=== PATIENT | male | born 1930 | race Caucasian/White ===

== ENCOUNTER → 2017-10-09 | Outpatient (CLI) | payer MEDICARE, BC ==
[2016-08-19 07:00] VITALS: BP 118/62
[~2017-10-09] MED LIST: FURO40TA4 PO; IBRU140C PO; POTA20TA4 PO; TRIA15CR3 TOP
--- NOTE | 2017-10-09 16:17 | RAD ---
Left lower extremity venous duplex ultrasound 10/09/2017 Indication: Left lower extremity edema Comparison study: None Discussion: Sonographic evaluation of the deep veins of the left lower extremity was performed. This includes grayscale imaging and color duplex imaging with spectral analysis. No evidence of deep venous thrombosis is seen. Interrogated veins are compressible and demonstrate augmentable blood flow and color Doppler imaging. Impression: No evidence of deep venous thrombosis involving the left lower extremity
== END | disposition home or self-care (01) ==
LOC: US 14:15
PROVIDERS: ATTEND Internal Medicine Hematology & Oncology
DX: R60.0 Localized edema (principal); C91.10 Chronic lymphocytic leukemia of B-cell type not having achieved remission
CPT/HCPCS: 93971

== ENCOUNTER 2017-11-21 11:12 | Emergency (ER) | payer MEDICARE, BC | END 2017-11-21 12:05 | disposition home or self-care (01) | LOC: ER 11:12 | DX: I80.02 Phlebitis and thrombophlebitis of superficial vessels of left lower extremity (principal); Z90.49 Acquired absence of other specified parts of digestive tract; Z98.890 Other specified postprocedural states | CPT/HCPCS: 99282 ==

== ENCOUNTER → 2018-12-28 | Outpatient (CLI) | payer MEDICARE, BC ==
[2017-11-21 11:20] VITALS: BP 128/60
[~2018-12-28] MED LIST changes: +MULT1TAB13 PO; +SENN-37 PO
--- NOTE | 2018-12-28 16:11 | RAD ---
Left lower extremity venous Doppler dated 12/28/2018. No comparison available. Clinical data indication: Left leg swelling and discomfort. FINDINGS: Grayscale, color-flow and spectral waveform analysis performed to include the deep venous system of the left lower extremity. Normal compressibility, phasicity and augmentation of flow throughout. No filling defects are seen. IMPRESSION: No evidence of left lower extremity deep vein thrombosis. Electronically signed by: Rick Boykin MD (12/28/2018 4:06 PM) [facility]
== END | disposition home or self-care (01) ==
LOC: US 15:08
PROVIDERS: ATTEND Internal Medicine Hematology & Oncology
DX: C91.90 Lymphoid leukemia, unspecified not having achieved remission (principal); M79.605 Pain in left leg; M79.89 Other specified soft tissue disorders
CPT/HCPCS: 93971

== ENCOUNTER → 2019-01-02 | Outpatient (CLI) | payer MEDICARE, BC ==
[2017-11-21 11:20] VITALS: BP 128/60
[~2019-01-02] MED LIST changes: -MULT1TAB13 PO; -SENN-37 PO
--- NOTE | 2019-01-02 12:20 | RAD ---
EXAM: Left lower extremity venous Doppler sonogram. HISTORY: Pain and swelling. TECHNIQUE: Piper scale and color Doppler sonographic evaluation of the left lower extremity veins with spectral waveform analysis was performed. FINDINGS: There is normal color flow, normal compressibility and there are normal spectral waveforms in the common femoral, superficial femoral, popliteal, posterior tibial and greater saphenous veins. IMPRESSION: No Doppler evidence of lower extremity deep venous thrombosis. Electronically signed by: Shahrzad Wilkes MD (01/02/2019 12:15 PM) [place] [id number]
== END | disposition home or self-care (01) ==
LOC: US 11:44
PROVIDERS: ATTEND Family Medicine
DX: C91.10 Chronic lymphocytic leukemia of B-cell type not having achieved remission (principal); M79.89 Other specified soft tissue disorders; Z86.718 Personal history of other venous thrombosis and embolism
CPT/HCPCS: 93971

== ENCOUNTER → 2019-01-23 | Outpatient (CLI) | payer MEDICARE, BC ==
[2019-01-17 15:51] VITALS: BP 108/39
[~2019-01-23] MED LIST changes: +MULT1TAB13 PO; +SENN-37 PO
== END | disposition home or self-care (01) ==
LOC: PMGWOUND 09:05
PROVIDERS: ATTEND Preventive Medicine Undersea and Hyperbaric Medicine
DX: L97.221 Non-pressure chronic ulcer of left calf limited to breakdown of skin (principal); I87.2 Venous insufficiency (chronic) (peripheral); I89.0 Lymphedema, not elsewhere classified; M19.90 Unspecified osteoarthritis, unspecified site; H91.90 Unspecified hearing loss, unspecified ear; Z90.49 Acquired absence of other specified parts of digestive tract; Z86.718 Personal history of other venous thrombosis and embolism
CPT/HCPCS: 99214; G0463

== ENCOUNTER → 2019-02-06 | Outpatient (CLI) | payer MEDICARE, BC ==
[2019-01-17 15:51] VITALS: BP 108/39
== END | disposition home or self-care (01) ==
LOC: PMGWOUND 09:59
PROVIDERS: ATTEND Preventive Medicine Undersea and Hyperbaric Medicine
DX: L97.821 Non-pressure chronic ulcer of other part of left lower leg limited to breakdown of skin (principal); I87.2 Venous insufficiency (chronic) (peripheral); M19.90 Unspecified osteoarthritis, unspecified site; I89.0 Lymphedema, not elsewhere classified; H91.90 Unspecified hearing loss, unspecified ear; Z86.718 Personal history of other venous thrombosis and embolism; Z90.49 Acquired absence of other specified parts of digestive tract
CPT/HCPCS: 99213; G0463

== ENCOUNTER → 2019-02-06 | Outpatient (CLI) | payer MEDICARE, BC ==
[2019-01-17 15:51] VITALS: BP 108/39
--- NOTE | 2019-02-13 12:13 | RAD ---
Indication: Mid santos nonhealing wound. TECHNIQUE: Duplex evaluation of the saphenous vein in the left lower extremity with grayscale, color Doppler and spectral waveform analysis. COMPARISON: None FINDINGS: The diameter of the proximal saphenous vein at the saphenofemoral junction measures 1.12 cm with reflux of 1.1 seconds. The diameter of the mid great saphenous vein measures 5 mm with reflux of 2.5 seconds. The diameter of the distal great saphenous vein measures 5.4 mm with reflux of 1.6 seconds. The diameter of the great saphenous vein in the upper calf measures 4.2 mm with reflux of 2.1 seconds. The diameter of the great saphenous vein in the mid calf measures 4.6 mm with reflux of 2.2 seconds. The diameter of the great saphenous vein in the distal calf measures 5.1 mm with reflux of 2.1 seconds. Calf senior health physics technician is seen approximately 30 cm from the ankle with reflux of 1.9 seconds and diameter of 4.8 mm. IMPRESSION: 1. Left leg great saphenous vein reflux from groin to ankle with insufficiency greater than one second. 2. One incompetent senior health physics technician draining to the wound and is in the anterior border of the wound. Electronically signed by: Live Tolbert DO (02/13/2019 12:10 PM) [facility]
== END | disposition home or self-care (01) ==
LOC: US 14:41
PROVIDERS: ATTEND Preventive Medicine Undersea and Hyperbaric Medicine
DX: L97.221 Non-pressure chronic ulcer of left calf limited to breakdown of skin (principal)
CPT/HCPCS: 93971

== ENCOUNTER → 2019-02-13 | Outpatient (CLI) | payer MEDICARE, BC ==
[2019-01-17 15:51] VITALS: BP 108/39
== END | disposition home or self-care (01) ==
LOC: PMGWOUND 09:59
PROVIDERS: ATTEND Preventive Medicine Undersea and Hyperbaric Medicine
DX: L97.821 Non-pressure chronic ulcer of other part of left lower leg limited to breakdown of skin (principal); I87.2 Venous insufficiency (chronic) (peripheral); M19.90 Unspecified osteoarthritis, unspecified site; I89.0 Lymphedema, not elsewhere classified; H91.90 Unspecified hearing loss, unspecified ear; Z86.718 Personal history of other venous thrombosis and embolism; Z90.49 Acquired absence of other specified parts of digestive tract
CPT/HCPCS: 97597; 97598

== ENCOUNTER → 2019-02-20 | Outpatient (CLI) | payer MEDICARE, BC ==
[2019-01-17 15:51] VITALS: BP 108/39
== END | disposition home or self-care (01) ==
LOC: PMGWOUND 10:52
PROVIDERS: ATTEND Preventive Medicine Undersea and Hyperbaric Medicine
DX: L97.821 Non-pressure chronic ulcer of other part of left lower leg limited to breakdown of skin (principal); I87.2 Venous insufficiency (chronic) (peripheral); I89.0 Lymphedema, not elsewhere classified; M19.90 Unspecified osteoarthritis, unspecified site; H91.90 Unspecified hearing loss, unspecified ear; Z90.49 Acquired absence of other specified parts of digestive tract; Z86.718 Personal history of other venous thrombosis and embolism
CPT/HCPCS: 97597; 97598

== ENCOUNTER 2019-03-11 08:29 | Outpatient (CLI) | payer MEDICARE, BC ==
[2019-03-11] VITALS (10 sets, daily range): BP systolic 118–153; BP diastolic 60–73
[~2019-03-11] VITALS: Ht 195.6 cm; Wt 86.2 kg
[~2019-03-11 08:29] MED LIST changes: -MULT1TAB13 PO; -SENN-37 PO
[2019-03-11] MEDS ORDERED: SENN-37 PO (08:45)
[2019-03-11] MEDS ORDERED: MULT1TAB13 PO (08:45)
[2019-03-11 09:04] LABS: CALCIUM 9.2 mg/dL (8.5-10.1); GFR 70.8; POTASSIUM 4.1 mmol/L (3.5-5.1)
[2019-03-11 09:07] LABS: BASO % 1 % (0-3); EOS # 0.4 x10^3/uL (0.0-0.7); EOS % 4 % (0-3); HEMATOCRIT 43.3 % (39.0-53.0); HEMOGLOBIN 14.5 g/dL (13.0-17.5); LYMPH # 5.8 x10^3/uL (1.0-4.8); LYMPH % 62 % (24-48); MEAN CORPUSCULAR HEMOGLOBIN 31 pg (25-35); MEAN CORPUSCULAR HGB CONC 33 g/dL (31-37); MEAN CORPUSCULAR VOLUME 92 fL (79-100); MONO # 0.6 x10^3/uL (0.0-1.1); MONO % 6 % (0-9); NEUT # 2.5 x10^3uL (1.8-7.7); NEUT % 27 % (31-73); PLATELET COUNT 151 x10^3/uL (140-400); RED CELL DISTRIBUTION WIDTH 13.8 % (11.5-14.5); WHITE BLOOD COUNT 9.3 x10^3/uL (4.0-11.0)
[2019-03-11 09:09] LABS: PROTHROMBIN TIME PATIENT 12.3 SEC (11.7-14.0)
[2019-03-11] MEDS ORDERED: HEPARIN for ARTERIAL LINE 1,500 ML ONE (09:10)
[2019-03-11] MEDS ORDERED: LIDOCAINE WITH 8.4% SOD BICARB 3 ML DISP.SYRIN. ONE (09:10)
[2019-03-11] MEDS ORDERED: IODIXANOL 320 MG/ML 100 ML VIAL. ONE (09:10)
[2019-03-11] MEDS ORDERED: IODIXANOL 320 MG/ML 50ML VIAL. ONE (09:10)
[2019-03-11] MEDS ORDERED: fentaNYL PF VIAL 100 MCG/2 ML VIAL ONE (09:52)
[2019-03-11] MEDS ORDERED: HEPARIN for IV BOLUS 10,000 UNIT/10 ML VIAL. ONE (09:52)
[2019-03-11] MEDS ORDERED: MIDAZOLAM HCL/PF 2 MG/2 ML VIAL. ONE (09:52)
[2019-03-11] MEDS ORDERED: MIDAZOLAM HCL/PF 2 MG/2 ML VIAL. IV ONE (10:00)
[2019-03-11] MEDS ORDERED: IODIXANOL 320 MG/ML 50ML VIAL. IART ONE (10:00)
[2019-03-11] MEDS ORDERED: LIDOCAINE WITH 8.4% SOD BICARB 3 ML DISP.SYRIN. IJ ONE (10:00)
[2019-03-11] MEDS ORDERED: fentaNYL PF VIAL 100 MCG/2 ML VIAL IV ONE (10:00)
[2019-03-11] MEDS ORDERED: IODIXANOL 320 MG/ML 100 ML VIAL. IART ONE (10:00)
--- NOTE | 2019-03-11 12:14 | RAD ---
03/11/2019 1. Pelvic angiography 2. Left lower extremity angiography Indication: 88-year-old male with chronic left lower extremity wounds and edema. Probable component of venous stasis disease. Ultrasound demonstrates distal arterial disease, raising concern for a component of arterial insufficiency. Discussion: The risks and benefits of the procedure were discussed the patient and his family. Informed consent was obtained. A timeout procedure was performed. The right groin was prepped and draped using maximum sterile barrier technique. 1% lidocaine was administered for local anesthesia. The right common femoral artery was evaluated with ultrasound found to be patent. Using a combination of direct ultrasound guidance and fluoroscopic landmarks right common femoral artery was accessed using micropuncture technique. A 5 Japanese vascular sheath was placed. An Omni flush catheter and SpotterRF wire were advanced into the inferior abdominal aorta. Pelvic angiograms were obtained. No hemodynamically significant aortoiliac stenosis was identified. The catheter was then manipulated into the common femoral artery left lower extremity angiograms were performed. No significant femoral popliteal stenosis is identified. Mild irregularity is seen in the anterior tibial artery. The anterior tibial artery and dorsalis pedis artery are otherwise appear to be patent. Peroneal posterior tibial arteries are patent. Lateral plantar artery is patent. The catheter and sheath were removed. A minx device was used to achieve hemostasis at the right common femoral puncture site. Manual pressure was held. Sterile dressings were applied. The procedures performed under conscious sedation including continuous cardiopulmonary monitoring via a dedicated sedation nurse. [id number] sedation time: 45 minutes. 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
--- NOTE | 2019-03-11 14:40 | NUR ---
Pt VSS. Right groin site dressing c/d/i; site soft without oozing, bruising, or swelling. Pt denies any pain or sob. Bilateral pedal and post. tibial pulses remain the same, as prior to the procedure. Left FA iv dc'd with no complications, tip intact. Discharge instructions given to patient, , and daughter. Pt taken to outpatient entrance via wheelchair.
== END 2019-03-11 14:40 | disposition home or self-care (01) ==
LOC: INTRAD 08:29
PROVIDERS: ATTEND Preventive Medicine Undersea and Hyperbaric Medicine
DX: I70.292 Other atherosclerosis of native arteries of extremities, left leg (principal); Z88.1 Allergy status to other antibiotic agents; Z88.8 Allergy status to other drugs, medicaments and biological substances
CPT/HCPCS: 36246; 36415; 75625; 75710; 76937; 80048; 85025; 85610; 99152; 99153; C1760; C1769; C1892; C1894; J1644; J2250; J3010; Q9967; 36247; G0269

== ENCOUNTER → 2019-03-13 | Outpatient (CLI) | payer MEDICARE, BC ==
[~2019-03-13] MED LIST changes: +MULT1TAB13 PO; +SENN-37 PO
== END | disposition home or self-care (01) ==
LOC: PMGWOUND 09:30
PROVIDERS: ATTEND Preventive Medicine Undersea and Hyperbaric Medicine
DX: L97.821 Non-pressure chronic ulcer of other part of left lower leg limited to breakdown of skin (principal); I87.2 Venous insufficiency (chronic) (peripheral); L03.116 Cellulitis of left lower limb; I10 Essential (primary) hypertension; I89.0 Lymphedema, not elsewhere classified; I73.9 Peripheral vascular disease, unspecified; M19.90 Unspecified osteoarthritis, unspecified site; H91.90 Unspecified hearing loss, unspecified ear; K21.9 Gastro-esophageal reflux disease without esophagitis; Z91.041 Radiographic dye allergy status; Z88.1 Allergy status to other antibiotic agents; Z86.718 Personal history of other venous thrombosis and embolism; Z90.49 Acquired absence of other specified parts of digestive tract
CPT/HCPCS: 97597; 97598; 99213; G0463

== ENCOUNTER 2019-03-15 14:17 | Inpatient (IN) | payer MEDICARE, BC ==
[~2019-03-15] VITALS: Ht 195.6 cm; Wt 86.2 kg
[2019-03-15 15:02] LABS: BASO % 0 % (0-3); EOS % 10 % (0-3); HEMOGLOBIN 12.5 g/dL (13.0-17.5); LYMPH # 4.7 x10^3/uL (1.0-4.8); LYMPH % 47 % (24-48); MEAN CORPUSCULAR HEMOGLOBIN 30 pg (25-35); MEAN CORPUSCULAR HGB CONC 33 g/dL (31-37); MEAN CORPUSCULAR VOLUME 92 fL (79-100); MONO # 0.6 x10^3/uL (0.0-1.1); MONO % 6 % (0-9); NEUT # 3.9 x10^3uL (1.8-7.7); NEUT % 38 % (31-73); PLATELET COUNT 145 x10^3/uL (140-400); RED BLOOD COUNT 4.14 x10^6/uL (4.30-5.70); RED CELL DISTRIBUTION WIDTH 13.7 % (11.5-14.5); WHITE BLOOD COUNT 10.2 x10^3/uL (4.0-11.0)
[2019-03-15 15:09] LABS: CALCIUM 9.1 mg/dL (8.5-10.1); GFR 70.8; POTASSIUM 3.9 mmol/L (3.5-5.1)
[2019-03-15 15:17] LABS: ALBUMIN 3.4 g/dL (3.4-5.0); DIRECT BILIRUBIN 0.1 mg/dL (0.0-0.2); TOTAL BILIRUBIN 0.4 mg/dL (0.2-1.0); TOTAL PROTEIN 6.3 g/dL (6.4-8.2)
--- NOTE | 2019-03-15 15:45 | PHYS DOC ---
Past Medical History Past Medical History: Other Additional Past Medical Histor: CLL, ingunal hernia Past Surgical History: Appendectomy, Tonsillectomy, Other Additional Past Surgical Histo: Hernia repair Alcohol Use: None Drug Use: None Adult General Chief Complaint Chief Complaint: MULTIPLE COMPLAINTS HPI HPI This is a pleasant 88-year-old male presenting to the emergency department today with multiple complaints. He complains of abdominal pain in the right upper quadrant which was moderate in nature sharp shooting nonradiating without alleviating factors. After approximately 1 hour after having a bowel movement the patient's pain completely resolved. The patient had an angiogram recently and afterward developed a rash all over his body. He has been taking Benadryl and that rash is improving. He also has had left leg swelling and recently saw his wound doctor who put him on doxycycline. He is had mild improvement of his swelling and pain on the left. He otherwise denies having fevers at home. Review of systems is negative for chest pain shortness of breath headache fevers chills. All other review of systems is negative unless otherwise noted in history of present illness. ED course: 88-year-old male presenting to the emergency department today with abdominal pain and leg pain with swelling and cellulitis of the left leg with a allergic rash from his recent angiogram of his leg. His rash seems to be improving from his allergic reaction however his cellulitis rash is significant with significant swelling. I spoke with his primary doctor Dr. Peterson who would like him to be admitted for IV antibiotics. We'll give the patient IV vancomycin and Zosyn and obtain a bed for the patient. Review of Systems Review of Systems SEE ABOVE. Current Medications Current Medications Current Medications Medications (Trade) Dose Ordered Sig/[facility] Start Time Stop Time Status Last Admin Dose Admin Piperacillin Sod/ Tazobactam Sod (Zosyn Per Pharmacy) 1 each PRN DAILY PRN 03/15/19 16:15 Piperacillin Sod/ Tazobactam Sod 2.25 gm/Sodium Chloride 50 ml @ 100 mls/hr 1X ONCE 03/15/19 16:30 03/15/19 16:59 DC 03/15/19 17:02 100 MLS/HR Allergies Allergies Allergies Coded Allergies Type Severity Reaction Last Updated Verified iodixanol Allergy Severe RASH 03/15/19 Yes Physical Exam Physical Exam SEE ABOVE Constitutional: Well developed, well nourished, no acute distress, non-toxic appearance. HENT: Normocephalic, atraumatic, bilateral external ears normal, oropharynx moist, no oral exudates, nose normal. [] Eyes: PERRLA, EOMI, conjunctiva normal, no discharge. Neck: Normal range of motion, no tenderness, supple, no stridor. [] Cardiovascular:Heart rate regular rhythm, no murmur Lungs & Thorax: Bilateral breath sounds clear to auscultation [] Abdomen: Bowel sounds normal, soft, no tenderness, no masses, no pulsatile masses. Skin: Warm, dry, patient has a allergic rash over the chest and abdomen that is improving per the patient. Back: No tenderness, no CVA tenderness. Extremities: The patient's left lower extremity is swollen with 3+ edema with erythema and warmth suggestive of cellulitis. Otherwise, the patient has venous stasis in the right lower extremity with 1+ to trace edema. Neurologic: Alert and oriented X 3, normal motor function, normal sensory function, no focal deficits noted. [] Psychologic: Affect normal, judgement normal, mood normal. [] Current Patient Data Vital Signs Vital Signs Date Time Temp Pulse Resp B/P (MAP) Pulse Ox O2 Delivery O2 Flow Rate FiO2 03/15/19 16:05 68 17 139/69 (92) 98 Room Air 03/15/19 14:31 97.8 97.8 Lab Values Laboratory Tests Test 03/15/19 14:45 White Blood Count 10.2 x10^3/uL (4.0-11.0) Red Blood Count 4.14 x10^6/uL (4.30-5.70) L Hemoglobin 12.5 g/dL (13.0-17.5) L Hematocrit 38.0 % (39.0-53.0) L Mean Corpuscular Volume 92 fL (79-100) Mean Corpuscular Hemoglobin 30 pg (25-35) Mean Corpuscular Hemoglobin Concent 33 g/dL (31-37) Red Cell Distribution Width 13.7 % (11.5-14.5) Platelet Count 145 x10^3/uL (140-400) Neutrophils (%) (Auto) 38 % (31-73) Lymphocytes (%) (Auto) 47 % (24-48) Monocytes (%) (Auto) 6 % (0-9) Eosinophils (%) (Auto) 10 % (0-3) H Basophils (%) (Auto) 0 % (0-3) Neutrophils # (Auto) 3.9 x10^3uL (1.8-7.7) Lymphocytes # (Auto) 4.7 x10^3/uL (1.0-4.8) Monocytes # (Auto) 0.6 x10^3/uL (0.0-1.1) Eosinophils # (Auto) 1.0 x10^3/uL (0.0-0.7) H Basophils # (Auto) 0.0 x10^3/uL (0.0-0.2) Segmented Neutrophils % 37 % (35-66) Band Neutrophils % 6 % (0-9) Lymphocytes % 42 % (24-48) Atypical Lymphocytes % (Manual) 3 % (0-0) H Monocytes % 4 % (0-10) Eosinophils % 8 % (0-5) H Smudge Cells Present Platelet Estimate Adequate (ADEQUATE) Sodium Level 140 mmol/L (136-145) Potassium Level 3.9 mmol/L (3.5-5.1) Chloride Level 103 mmol/L (98-107) Carbon Dioxide Level 30 mmol/L (21-32) Anion Gap 7 (6-14) Blood Urea Nitrogen 25 mg/dL (8-26) Creatinine 1.0 mg/dL (0.7-1.3) Estimated GFR (Cockcroft-Gault) 70.8 Glucose Level 112 mg/dL (70-99) H Calcium Level 9.1 mg/dL (8.5-10.1) Total Bilirubin 0.4 mg/dL (0.2-1.0) Direct Bilirubin 0.1 mg/dL (0.0-0.2) Aspartate Amino Transferase (AST) 27 U/L (15-37) Alanine Aminotransferase (ALT) 31 U/L (16-63) Alkaline Phosphatase 97 U/L (46-116) Total Protein 6.3 g/dL (6.4-8.2) L Albumin 3.4 g/dL (3.4-5.0) Lipase 107 U/L (73-393) Laboratory Tests 03/15/19 14:45 Laboratory Tests 03/15/19 14:45 EKG EKG [] Radiology/Procedures Radiology/Procedures [] Course & Med Decision Making Course & Med Decision Making Pertinent Labs and Imaging studies reviewed. (See chart for details) [] Dragon Disclaimer Dragon Disclaimer This electronic medical record was generated, in whole or in part, using a voice recognition dictation system. Departure Departure Impression: Primary Impression: Left leg cellulitis Disposition: ADMITTED INPATIENT Admitting Physician: Damien Peterson Condition: STABLE Referrals: DAMIEN PETERSON MD (PCP) Patient Instructions: Cellulitis, Drug Allergy, [id number] ERNST BUTLER MD Mar 15, 2019 15:45
[2019-03-15] MEDS ORDERED: PIP/TAZO PER PHARMACY MC PRN (16:15)
[2019-03-15] MEDS ORDERED: PIPERACILLIN/TAZOBACTAM 2.25 GM in IV NORMAL SALINE 50ML 50 ML IV ONE (16:30)
--- NOTE | 2019-03-15 16:33 | RAD ---
Left lower extremity venous ultrasound, 03/15/2019 : History: Left leg pain and swelling Duplex evaluation including grayscale, color flow and spectral Doppler analysis was performed. The femoral and popliteal veins show no filling defects to suggest DVT. The visualized calf veins are unremarkable. IMPRESSION: There is no sonographic evidence of deep vein thrombosis in the left lower extremity Electronically signed by: Franki Mendoza MD (03/15/2019 4:30 PM) [facility]
[2019-03-15] MEDS ORDERED: IV NORMAL SALINE 1000ML BAG 1,000 ML IV SCH (17:02)
[2019-03-15] MEDS ORDERED: ONDANSETRON PF 4 MG/2 ML VIAL. IV PRN (17:15)
[2019-03-15] MEDS ORDERED: VANCOMYCIN PER PHARMACY MC PRN (17:15)
[2019-03-15] MEDS ORDERED: MORPHINE SULFATE 2 MG/ML VIAL. IV PRN (17:15)
[2019-03-15 17:48] LABS: % ATYL 3 % (0-0); % BANDS 6 % (0-9); % EOS 8 % (0-5); % LYMPHS 42 % (24-48); % MONOS 4 % (0-10); % SEGS 37 % (35-66); PLT ESTIMATE ADEQUATE (ADEQUATE)
[2019-03-15 17:49] LABS: SMUDGE CELLS PRESENT
[2019-03-15] MEDS ORDERED: VANCOMYCIN 2 GM in IV NORMAL SALINE 500ML BAG 500 ML IV ONE (18:00)
[2019-03-15 19:00] VITALS: BP 138/65
[2019-03-15] MEDS: SENNOSIDES/DOCUSATE 8.6/50MG TABLET. PO SCH (20:47)
[2019-03-15] MEDS: ceFAZolin SODIUM 1 GM in IV DEXTROSE 5% 50 ML IV SCH (21:26)
[2019-03-15 23:00] VITALS: BP 135/55
[2019-03-15 23:34] LABS: BILIRUBIN,URINE NEGATIVE (NEG); CLARITY,URINE CLEAR; COLOR,URINE YELLOW; NITRITE,URINE NEGATIVE (NEG); PH,URINE 5.5; PROTEIN,URINE NEGATIVE (NEG-TRACE); UROBILINOGEN,URINE 0.2 mg/dL (0.2 mg/dL)
[2019-03-15 23:43] LABS: BACTERIA,URINE 0 /HPF (0-FEW); RBC,URINE 0 /HPF (0-2); WBC,URINE 0 /HPF (0-4)
[2019-03-16] MEDS ORDERED: PIPERACILLIN/TAZOBACTAM 2.25 GM in IV NORMAL SALINE 50ML 50 ML IV SCH ×2
--- NOTE | 2019-03-16 02:36 | NUR ---
Pt was admitted before shift change, report received from Shahrzad day shift RN. Heart health packet given. Menu and medication packets explained. PT was reporting zero pain and resting in bed watching tv with completion of admission.
[2019-03-16 03:00] VITALS: BP 127/88
[2019-03-16 04:31] LABS: BASO % 0 % (0-3); EOS # 0.9 x10^3/uL (0.0-0.7); EOS % 10 % (0-3); HEMATOCRIT 36.5 % (39.0-53.0); HEMOGLOBIN 12.1 g/dL (13.0-17.5); LYMPH # 4.3 x10^3/uL (1.0-4.8); LYMPH % 49 % (24-48); MEAN CORPUSCULAR HEMOGLOBIN 30 pg (25-35); MEAN CORPUSCULAR HGB CONC 33 g/dL (31-37); MEAN CORPUSCULAR VOLUME 91 fL (79-100); MONO # 0.6 x10^3/uL (0.0-1.1); MONO % 7 % (0-9); NEUT # 2.9 x10^3uL (1.8-7.7); NEUT % 33 % (31-73); PLATELET COUNT 130 x10^3/uL (140-400); RED CELL DISTRIBUTION WIDTH 13.8 % (11.5-14.5); WHITE BLOOD COUNT 8.7 x10^3/uL (4.0-11.0)
[2019-03-16 05:25] LABS: CALCIUM 8.5 mg/dL (8.5-10.1); CREATININE 0.9 mg/dL (0.7-1.3); POTASSIUM 3.6 mmol/L (3.5-5.1)
[2019-03-16] MEDS: ceFAZolin SODIUM 1 GM in IV DEXTROSE 5% 50 ML IV SCH ×2 (05:38→14:23)
[2019-03-16 07:00] VITALS: BP 137/59
[2019-03-16] MEDS: FUROSEMIDE 40 MG TABLET. PO SCH (08:04)
[2019-03-16] MEDS: POTASSIUM CHLORIDE 20 MEQ TABLET.ER. PO SCH (08:04)
[2019-03-16] MEDS: SENNOSIDES/DOCUSATE 8.6/50MG TABLET. PO SCH ×2 (08:05→21:00)
--- NOTE | 2019-03-16 10:25 | HP ---
ADMIT DATE: 03/15/2019 CHIEF COMPLAINT AND HISTORY OF PRESENT ILLNESS: This 88-year-old white male, of Dr. Jose Maria Peterson's, presented to the Emergency Room with multiple complaints. He was complaining of right upper quadrant abdominal pain that had resolved by the time he got to the Emergency Room, following a bowel movement. He had an arteriogram of his lower extremities and had broken out with a rash over that and has a chronic wound on his left lower extremity. He had [facility], where they put him on doxycycline. He had a full body rash that he states was really non-symptomatic for him. He was admitted because of the abdominal pain as well as the swelling and cellulitis of the left leg. PAST MEDICAL HISTORY: The patient's past medical history is remarkable for prior inguinal hernia, appendectomy, tonsillectomy and CLL. MEDICATIONS: Medications were brought with the patient, listed on the computer and have been addressed. ALLERGIES: HE IS ALLERGIC TO IODINE WELL LEVAQUIN. SOCIAL HISTORY: Noncontributory. FAMILY HISTORY: Noncontributory. REVIEW OF SYSTEMS: Remarkable for that as mentioned above. PHYSICAL EXAMINATION: GENERAL: He is well-developed, well-nourished white male, in no acute distress. VITAL SIGNS: Stable. He is afebrile. HEAD, EYES, EARS, NOSE AND THROAT: Unremarkable. NECK: Supple, without adenopathy or thyromegaly. CHEST: Clear to auscultation and percussion. HEART: Regular rate and rhythm, without S3, S4 or murmur. ABDOMEN: Soft, nontender, without hepatosplenomegaly or masses. EXTREMITIES: Reveal 2 to 3+ edema, left lower extremity, with erythema and warmth extending up the leg. He has venous stasis changes on the right. SKIN: In addition, he does have, skin lopez, a diffuse body rash, consistent with a probable drug rash. NEUROLOGIC: He is intact. LABORATORY DATA: Initial laboratory is remarkable for normal white count with normal differential. Platelet count is borderline low at 130 this morning. Hemoglobin is mildly depressed at 12 to 12.5. CMP is essentially unremarkable. Urinalysis unremarkable. Left lower extremity ultrasound done to rule out DVT and is negative for the same. IMPRESSION: 1. Left leg cellulitis. 2. Abdominal pain, resolved. PLAN: The patient is on antibiotics. ID will be asked to follow along as well as Wound Care and the patient will be monitored, managed and treated appropriately. ISA WITT MD DR: IRINA/demetria JOB#: [id number] / [id number] JOSE MARIA Christian MD
[2019-03-16 11:00] VITALS: BP 125/55
--- NOTE | 2019-03-16 12:35 | PDOC ---
Infectious Disease Note Vital Sign Vital Signs Vital Signs Date Time Temp Pulse Resp B/P (MAP) Pulse Ox O2 Delivery O2 Flow Rate FiO2 03/16/19 11:00 98.2 68 14 125/55 (78) 96 Room Air 98.2 Labs Lab Laboratory Tests Test 03/15/19 14:45 03/15/19 23:00 03/16/19 03:40 White Blood Count 10.2 x10^3/uL (4.0-11.0) 8.7 x10^3/uL (4.0-11.0) Red Blood Count 4.14 x10^6/uL (4.30-5.70) 4.00 x10^6/uL (4.30-5.70) Hemoglobin 12.5 g/dL (13.0-17.5) 12.1 g/dL (13.0-17.5) Hematocrit 38.0 % (39.0-53.0) 36.5 % (39.0-53.0) Mean Corpuscular Volume 92 fL (79-100) 91 fL (79-100) Mean Corpuscular Hemoglobin 30 pg (25-35) 30 pg (25-35) Mean Corpuscular Hemoglobin Concent 33 g/dL (31-37) 33 g/dL (31-37) Red Cell Distribution Width 13.7 % (11.5-14.5) 13.8 % (11.5-14.5) Platelet Count 145 x10^3/uL (140-400) 130 x10^3/uL (140-400) Neutrophils (%) (Auto) 38 % (31-73) 33 % (31-73) Lymphocytes (%) (Auto) 47 % (24-48) 49 % (24-48) Monocytes (%) (Auto) 6 % (0-9) 7 % (0-9) Eosinophils (%) (Auto) 10 % (0-3) 10 % (0-3) Basophils (%) (Auto) 0 % (0-3) 0 % (0-3) Neutrophils # (Auto) 3.9 x10^3uL (1.8-7.7) 2.9 x10^3uL (1.8-7.7) Lymphocytes # (Auto) 4.7 x10^3/uL (1.0-4.8) 4.3 x10^3/uL (1.0-4.8) Monocytes # (Auto) 0.6 x10^3/uL (0.0-1.1) 0.6 x10^3/uL (0.0-1.1) Eosinophils # (Auto) 1.0 x10^3/uL (0.0-0.7) 0.9 x10^3/uL (0.0-0.7) Basophils # (Auto) 0.0 x10^3/uL (0.0-0.2) 0.0 x10^3/uL (0.0-0.2) Segmented Neutrophils % 37 % (35-66) Band Neutrophils % 6 % (0-9) Lymphocytes % 42 % (24-48) Atypical Lymphocytes % (Manual) 3 % (0-0) Monocytes % 4 % (0-10) Eosinophils % 8 % (0-5) Smudge Cells Present Platelet Estimate Adequate (ADEQUATE) Sodium Level 140 mmol/L (136-145) 142 mmol/L (136-145) Potassium Level 3.9 mmol/L (3.5-5.1) 3.6 mmol/L (3.5-5.1) Chloride Level 103 mmol/L (98-107) 108 mmol/L (98-107) Carbon Dioxide Level 30 mmol/L (21-32) 29 mmol/L (21-32) Anion Gap 7 (6-14) 5 (6-14) Blood Urea Nitrogen 25 mg/dL (8-26) 15 mg/dL (8-26) Creatinine 1.0 mg/dL (0.7-1.3) 0.9 mg/dL (0.7-1.3) Estimated GFR (Cockcroft-Gault) 70.8 80.0 Glucose Level 112 mg/dL (70-99) 90 mg/dL (70-99) Calcium Level 9.1 mg/dL (8.5-10.1) 8.5 mg/dL (8.5-10.1) Total Bilirubin 0.4 mg/dL (0.2-1.0) Direct Bilirubin 0.1 mg/dL (0.0-0.2) Aspartate Amino Transf (AST/SGOT) 27 U/L (15-37) Alanine Aminotransferase (ALT/SGPT) 31 U/L (16-63) Alkaline Phosphatase 97 U/L (46-116) Total Protein 6.3 g/dL (6.4-8.2) Albumin 3.4 g/dL (3.4-5.0) Lipase 107 U/L (73-393) Urine Collection Type Unknown Urine Color Yellow Urine Clarity Clear Urine pH 5.5 Urine Specific [place] 1.015 Urine Protein Negative mg/dL (NEG-TRACE) Urine Glucose (UA) Negative mg/dL (NEG) Urine Ketones (Stick) Negative mg/dL (NEG) Urine Blood Negative (NEG) Urine Nitrite Negative (NEG) Urine Bilirubin Negative (NEG) Urine Urobilinogen Dipstick 0.2 mg/dL (0.2 mg/dL) Urine Leukocyte Esterase Negative (NEG) Urine RBC 0 /HPF (0-2) Urine WBC 0 /HPF (0-4) Urine Bacteria 0 /HPF (0-FEW) Urine Mucus Slight /LPF Objective Assessment Generalized rash following an angiogram on 03/11, slowly improving per family 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 He is followed by [facility] wound care center. Failed OP doxycycline h/o pansensitive PSA and enterococcus (PCN-S) CLL Allergy levofloxacin Plan Plan of Care ? Drug reaction - on trunk/chest and both legs Wounds do not look infected D/c abx and observe and can d/c home 03/17 if stable or improved D/w daughter Attending Co-Sign Attending Co-Sign The patient was seen and interviewed as well as examined at the bedside. The chart was reviewed. The case was discussed. Agree with the plan of care. DENNIS MANZANO APRN Mar 16, 2019 12:35 YIN LOPEZ MD Mar 16, 2019 15:31
[2019-03-16 15:00] VITALS: BP 125/56
[2019-03-16 19:00] VITALS: BP 125/59
[2019-03-16] MEDS: LACTOBACILLUS RHAMNOSUS GG 1 CAPSULE. PO SCH (21:18)
[2019-03-16 23:00] VITALS: BP 145/61
[2019-03-17 04:11] VITALS: BP 126/67
[2019-03-17 07:00] VITALS: BP 133/70
[2019-03-17] MEDS: SENNOSIDES/DOCUSATE 8.6/50MG TABLET. PO SCH (08:33)
[2019-03-17] MEDS: FUROSEMIDE 40 MG TABLET. PO SCH (08:34)
[2019-03-17] MEDS: LACTOBACILLUS RHAMNOSUS GG 1 CAPSULE. PO SCH (08:34)
[2019-03-17] MEDS: POTASSIUM CHLORIDE 20 MEQ TABLET.ER. PO SCH (08:34)
[2019-03-17 11:00] VITALS: BP 145/73
--- NOTE | 2019-03-17 13:18 | PDOC ---
Infectious Disease Note Subjective Subjective Doing well and rash resolving No F/C/S/N/V/D/SOA ROS ROS o/w neg Vital Sign Vital Signs Vital Signs Date Time Temp Pulse Resp B/P (MAP) Pulse Ox O2 Delivery O2 Flow Rate FiO2 03/17/19 11:00 97.7 61 14 145/73 (97) 93 Room Air 97.7 Physical Exam PHYSICAL EXAM GENERAL: He is well-developed, well-nourished white male, in no acute distress. HEAD, EYES, EARS, NOSE AND THROAT: Unremarkable. NECK: Supple, without adenopathy or thyromegaly. CHEST: Clear to auscultation and percussion. HEART: Regular rate and rhythm, without S3, S4 or murmur. ABDOMEN: Soft, nontender, without hepatosplenomegaly or masses. EXTREMITIES: Reveal 1 - + edema, left lower extremity, with erythema but no warmth extending up the leg. He has chronic venous stasis changes Bilat. SKIN: diffuse body rash -improving, consistent with a probable drug rash. NEUROLOGIC: He is intact. 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 He is followed by [facility] wound care center. Failed OP doxycycline h/o pansensitive PSA and enterococcus (PCN-S) CLL Allergy levofloxacin Plan Plan of Care Wounds do not look infected Cont compression. Discussed at risk for infection given chronic swelling and drying cracking of skin Can d/c home D/w daughter/ YIN LOPEZ MD Mar 17, 2019 13:18
--- NOTE | 2019-03-17 13:36 | NUR ---
Discharge instructions and medications reviewed with patient, he verb. understanding all instructions and denies questions. Patient discharge to home with family with all belongings and instructions.
--- NOTE | 2019-03-17 15:56 | CONS ---
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 Arjun Lopez, Infectious disease REQUESTING PHYSICIAN: Dr. Masterson. REASON FOR CONSULTATION: Cellulitis of left leg. HISTORY OF PRESENT ILLNESS: The patient is an 88-year-old male with a history of chronic edema, superficial ulcerations of his left lower extremity. He was hospitalized about 2 months ago for recurrent cellulitis. At that time, cultures grew pansensitive Pseudomonas and Enterococcus, (penicillin sensitive). He showed improvement on antibiotics. On 03/11/2019, he had a pelvic and left lower extremity angiography. Mild changes distal atherosclerotic vascular disease was noted. A day or so after the procedure, he developed generalized rash. He has taken Benadryl with improvement. [facility] and started on doxycycline for left leg swelling. He later developed abdominal pain prompting the ER visit. However, by the time he arrived, he says the pain resolved. He says he does not particularly feel bad. He denies fevers, chills, sweats or body aches. His family feels the rash is improving overall. He denies nausea, vomiting or diarrhea. Denies cough, shortness of air or wheezing. PAST MEDICAL HISTORY: CLL, peripheral vascular disease, hypertension, arthritis, GERD, and recurrent cellulitis and ulcerations of left extremity. History of a pansensitive Pseudomonas and Enterococcus (PCN-S) wound infection. PAST SURGICAL HISTORY: Cataract extraction, appendectomy, ventral hernia repair. SOCIAL HISTORY: The patient is and lives at home. FAMILY HISTORY: Noncontributory. ALLERGIES: LEVOFLOXACIN AND IODINE. MEDICATIONS: One time dose of vancomycin on 03/15/2018. One-time dose of Zosyn on 03/15/2018. Cefazolin, probiotics, morphine, Zofran, potassium, and Senokot. REVIEW OF SYSTEMS: Per HPI, otherwise all other review of systems are negative. PHYSICAL EXAMINATION: VITAL SIGNS: Temperature is 98.2, blood pressure 125/55, heart rate 68, respiratory rate 14, pulse oximetry 96% on room air. BMI 22.5. HEENT: Pupils equally round, normal conjunctivae. Oral cavity, pharynx pink and moist. NECK: Supple. LUNGS: Clear to auscultation. HEART: S1 and S2. ABDOMEN: Nondistended, soft, nontender with bowel sounds present. EXTREMITIES: 1+ edema lower extremities bilaterally. No cyanosis. He has a cluster of superficial ulcerations and scabs anterior left calf without signs of any infection. SKIN: He has fine generalized erythematous rash sparing face, arms. NEUROLOGIC: Alert and oriented x 3. LABORATORY DATA: Today's WBC 8.7 from 10.2 on admission, hemoglobin 12.1, platelets 130,000. Creatinine 0.9, BUN 15, sodium 142, potassium 3.6, AST 27, ALT 31, albumin 3.4, lipase 107. Urinalysis unremarkable for infection. Lower extremity ultrasound showed no sonographic evidence of DVT in left lower extremity. IMPRESSION: 1. Generalized rash following an angiogram on 03/11/2019, slowly improving. 2. Chronic ulcerations with history of recurrent cellulitis of left leg. He is followed by [facility]. 3. History of pansensitive pseudomonas and enterococcus (PCN-S). 4. Chronic lymphocytic leukemia. 5. ALLERGY LEVOFLOXACIN. PLAN: The patient's rash is possibly due to a drug reaction. The wounds on the left leg do not look infected. We will discontinue the antibiotics and observe. He could be discharged home from an ID standpoint tomorrow if he remains stable and improves. Discussed with the patient's daughter. Thank you, Dr. Masterson for asking us to participate in this patient's care. Should you have further questions or concerns, please call. The patient seen and examined and plan of care implemented by Dr. Arjun Lopez. ARJUN LOPEZ MD DR: MACIEJ/demetria JOB#: [id number] / [id number]
--- NOTE | 2019-03-17 19:17 | DS ---
DATE OF DISCHARGE: 03/17/2019 PRIMARY DIAGNOSIS: Cellulitis of left leg. ADDITIONAL DIAGNOSES: 1. Venous stasis edema. 2. CLL. 3. Drug rash. CHIEF COMPLAINT AND HISTORY OF PRESENT ILLNESS: This 88-year-old white male, patient of Dr. Jose Maria Peterson presented in the Emergency Room on the day of admission with multiple complaints. He was complaining of some right upper quadrant abdominal pain that resolved by the time he got to the Emergency Room following a bowel movement. He then had an arteriogram of his lower extremities broken out with a rash. He had chronic wound on his left lower extremity that seemed to be more swollen and maybe a little more pain. He had been placed on doxycycline per the [facility] for this and was admitted with all the above. SUMMARY OF STAY: Abdominal pain was not a complaint during this stay. The CLL was not a problem during this stay. His edema decreased with the bed rest and leg elevation. ID saw him and felt he did not have any acute infection going on here. Most of the changes were that of venous stasis that he could go home with continued wound care followup and this was accomplished on the day of discharge. DISPOSITION: The patient is discharged to home. DIET: Regular. ACTIVITY: As tolerated. DISCHARGE MEDICATIONS: Wound care appointment is scheduled on Monday and he is to resume his regular home medications. ISA WITT MD DR: IRINA/demetria JOB#: [id number] / [id number] JOSE MARIA Christian MD
== END 2019-03-17 13:37 | disposition home or self-care (01) | DRG 603 ==
LOC: ER 14:17 → 5 NORTH 16:33
PROVIDERS: ADMIT Family Medicine; ATTEND Family Medicine
DX: L03.116 Cellulitis of left lower limb (principal); C91.10 Chronic lymphocytic leukemia of B-cell type not having achieved remission; L97.929 Non-pressure chronic ulcer of unspecified part of left lower leg with unspecified severity; L27.0 Generalized skin eruption due to drugs and medicaments taken internally; K21.9 Gastro-esophageal reflux disease without esophagitis; I10 Essential (primary) hypertension; I73.9 Peripheral vascular disease, unspecified; T50.905A Adverse effect of unspecified drugs, medicaments and biological substances, initial encounter; I87.8 Other specified disorders of veins; Z90.49 Acquired absence of other specified parts of digestive tract; Z91.041 Radiographic dye allergy status; Z88.1 Allergy status to other antibiotic agents; Y92.89 Other specified places as the place of occurrence of the external cause
CPT/HCPCS: 36415; 80048; 80076; 81001; 83690; 85007; 85025; 93971; 96365; J0690; J2543; J7030; 99285-25

== ENCOUNTER → 2019-04-01 | Outpatient (CLI) | payer MEDICARE, BC ==
[2019-03-17 11:00] VITALS: BP 145/73
--- NOTE | 2019-04-01 15:07 | CARD ---
MR#: [id number] Date of Study: 04/01/2019 Ordering Physician: MARYURI EVANS, Referring Physician: MARYURI EVANS, Tech: Roslyn Logan RVT; Gamaliel Hdez CCMA-LP APPROVED REPORT Patient StatusOUT-PATIENT Contract Analyst: Roslyn Logan RVT; Gamaliel Hdez CCMA-LP Procedure(s) performed: Endovenous VenaSeal ablation of the left greater saphenous vein. INDICATION FOR PROCEDURE The indication(s) include : Symptomatic Chronic Venous Insufficiency with Varicose Veins, lower extre mity pain and edema. PROCEDURE NARRATIVE After explaining the risks, benefits and alternative options, informed consent was obtained from rivera ent. Patient was brought to the procedure suite and duplex ultrasound was used to map out the insuffi cient saphenous vein. The access site was determined and marked on the overlying skin. The depth and diameter of the vein (s) to be treated was documented. The patient was placed supine on the procedure table and the leg was prepped and draped using sterile technique. Ultrasound guidance was again used to localize the access site. 1% lidocaine was injected into the sk in and subcutaneous tissues for local anesthesia. Using ultrasound guidance, access was obtained in t he saphenous vein with a 19-gauge thin-walled needle followed by introduction of a short guidewire. T he intraluminal location was confirmed with ultrasound and a 7 Divehi 7 cm sheath was inserted into t he vein. A 0.035 inch guidewire from the Venaseal kit was then introduced and positioned at the saphe nofemoral junction using ultrasound guidance. The 80 cm 7 Divehi introducer sheath/dilator was positi oned 5 cm from the saphenofemoral junction. The guidewire and dilator were removed and the remaining sheath was flushed with sterile saline, with the syringe remaining in place prior to the next steps. The Cyanoacrylate adhesive was loaded into a 3 cc syringe that was then attached to the 5F delivery c athter and loaded on to the Dispenser gun.The catheter was primed precisely and this 'assembly' was i ntroduced through the 7 Divehi sheath and positioned 5 cm caudal to the saphenofemoral junction under ultrasound guidance. While applying compression cephalad to the cathter tip with the ultrasound york sducer, 0.10 cc of the VenaSeal adhesive was delivered into the vein by pulling the trigger of the di hailey gun. The catheter was pulled back 1 cm and another 0.10 cc of the adhesive was delivered foll owing which the catheter was pulled back 3 cm. Compression was applied over the vein for 3 minutes. T he catheter tip position was confirmed again using the ultrasound, 0.10 cc Venaseal adhesive delivere d, catheter pulled back 3 cm and compression applied for 30 seconds. These steps were repeated to tr eat the entire length of the incompetent vein. Following the last injection and compression sequence, the catheter and introducer sheath were pulled out from the access site. Hemostasis was achieved with manual compression and an adhesive bandage wa s applied to the incision. Ultrasound confirmed complete coaptation and closure of the treated segmen ts of the greater saphenous vein, and the absence of any DVT at the saphenofemoral junction. Vein manuel gth treated was 68 cm. The drapes were removed and the patient cleaned and prepared for discharge. Patient tolerated the pro cedure well. There were no immediate complications. Postop ultrasound check scheduled for 48-72 hours and the patient was given written postop instructions. Signed by : Maryuri Evans, Electronically Approved : 04/01/2019 15:07:10
== END | disposition home or self-care (01) ==
LOC: VNUS 13:28
PROVIDERS: ATTEND Internal Medicine Cardiovascular Disease
DX: I83.812 Varicose veins of left lower extremity with pain (principal); I87.2 Venous insufficiency (chronic) (peripheral); Z88.1 Allergy status to other antibiotic agents; Z88.8 Allergy status to other drugs, medicaments and biological substances
CPT/HCPCS: 36482

== ENCOUNTER → 2019-04-02 | Outpatient (CLI) | payer MEDICARE, BC ==
[2019-03-17 11:00] VITALS: BP 145/73
--- NOTE | 2019-04-02 10:46 | RAD ---
LEFT LOWER EXTREMITY ULTRASOUND WITH DOPPLER 04/02/2019 10:15 AM Clinical Information: Postoperative left greater saphenous vein ablation. Comparison: Venous ultrasound March 15, 2019. Technique: Multiple grayscale, color Doppler, and spectral Doppler sonographic images of the lower extremity venous structures were obtained. Findings: Left greater saphenous vein is occluded status post ablation. The left common femoral, femoral, and popliteal veins exhibit normal compression, respiratory phasicity, and augmentation. No intraluminal thrombi are identified. Color Doppler flow is demonstrated in the left posterior tibial and peroneal veins. Impression: 1. Status post ablation of the left greater saphenous vein with complete occlusion. 2. Otherwise, no evidence for DVT in the left lower extremity. Electronically signed by: Ruth Ann Lima MD (04/02/2019 10:43 AM) [id number]
== END | disposition home or self-care (01) ==
LOC: US 09:36
PROVIDERS: ATTEND Internal Medicine Cardiovascular Disease
DX: I82.492 Acute embolism and thrombosis of other specified deep vein of left lower extremity (principal); I87.1 Compression of vein; I87.2 Venous insufficiency (chronic) (peripheral); Z98.890 Other specified postprocedural states
CPT/HCPCS: 93971

== ENCOUNTER → 2019-05-22 | Outpatient (CLI) | payer MEDICARE, BC ==
--- NOTE | 2019-05-22 12:14 | CARD ---
MR#: [id number] Date of Study: 05/22/2019 Ordering Physician: MARYURI HARO, Referring Physician: MARYURI HARO, Tech: Roslyn Brich APPROVED REPORT EXAM: Two-dimensional and M-mode echocardiogram with Doppler and color Doppler. Other Information Quality : GoodHR: 69bpm INDICATION Edema 2D DIMENSIONS RVDd3.1 (2.9-3.5cm)Left Atrium(2D)3.9 (1.6-4.0cm) IVSd1.0 (0.7-1.1cm)Aortic Root(2D)3.1 (2.0-3.7cm) LVDd5.6 (3.9-5.9cm)LVOT Diameter2.1 (1.8-2.4cm) PWd0.9 (0.7-1.1cm)LVDs4.1 (2.5-4.0cm) FS (%) 26.7 %SV80.0 ml LVEF(%)51.6 (>50%) Aortic Valve AoV Peak Aaron.144.7cm/sAoV VTI35.5cm AO Peak GR.8.4mmHgLVOT Peak Aaron.70.8cm/s LVOT VTI 17.07cmAO Mean GR.5mmHg CORTEZ (VMAX)1.36hc6RCB (VTI)1.61cm2 Mitral Valve MV E Ycecqhkm29.9cm/sMV DECEL RADD471js MV A Ryokmujb33.4cm/sMV IMI846lg E/A Ratio0.8MVA (PHT)2.20cm2 Pulmonary Valve PV Peak Cdswoblm677.4cm/sPV Peak Grad.5mmHg Tricuspid Valve TR P. Nnfpwiou881lk/sRAP KORQAGBR5gcBu TR Peak Gr.60dcYiVGMV07gwIc Pulmonary Vein S1 Cwkmijfw04.2cm/sD2 Qjjhmrkq62.2cm/s PVa hegrvwni965rqmt LEFT VENTRICLE The left ventricle is normal size. There is normal left ventricular wall thickness. The left ventricu lar systolic function is mildly diminished. The Ejection Fraction is 40-45%. There is normal LV segme ntal wall motion. Transmitral Doppler flow pattern is Grade I-abnormal relaxation pattern. RIGHT VENTRICLE The right ventricle is normal size. There is normal right ventricular wall thickness. The right ventr icular systolic function is normal. ATRIA The left atrium is borderline dilated. The right atrium is borderline dilated. The interatrial septum is intact with no evidence for an atrial septal defect or patent foramen ovale as noted on 2-D or Do ppler imaging. AORTIC VALVE The aortic valve is thickened but opens well. Doppler and Color Flow revealed no significant aortic r egurgitation. There is no significant aortic valvular stenosis. MITRAL VALVE The mitral valve is thickened but opens well. There is no evidence of mitral valve prolapse. There is no mitral valve stenosis. Doppler and Color-flow revealed trace mitral regurgitation. TRICUSPID VALVE The tricuspid valve is normal in structure and function. Doppler and Color Flow revealed trace tricus pid regurgitation with an estimated PAP of 33 mmHg. There is no tricuspid valve stenosis. PULMONIC VALVE The pulmonic valve is not well visualized. Doppler and Color Flow revealed trace pulmonic valvular re gurgitation. GREAT VESSELS The aortic root is normal in size. The IVC is normal in size and collapses >50% with inspiration. PERICARDIAL EFFUSION There is no pleural effusion. There is no evidence of significant pericardial effusion. Critical Notification Critical Value: No <Conclusion> The left ventricular systolic function is mildly diminished. The Ejection Fraction is 40-45%. There is normal LV segmental wall motion. Transmitral Doppler flow pattern is Grade I-abnormal relaxation pattern. Trace mitral regurgitation. Trace tricuspid regurgitation with an estimated PAP of 33 mmHg. There is no evidence of significant pericardial effusion. Signed by : Maryuri Haro, Electronically Approved : 05/22/2019 12:13:41
== END | disposition home or self-care (01) ==
LOC: ECHO 09:52
PROVIDERS: ATTEND Internal Medicine Cardiovascular Disease
DX: I87.2 Venous insufficiency (chronic) (peripheral) (principal)
CPT/HCPCS: 93306

== ENCOUNTER 2019-10-04 11:43 | Inpatient (IN) | payer MEDICARE, BC ==
[~2019-10-04] VITALS: Ht 195.6 cm; Wt 85.5 kg
[2019-10-04 12:39] LABS: BASO % 0 % (0-3); EOS # 0.1 x10^3/uL (0.0-0.7); EOS % 2 % (0-3); HEMATOCRIT 37.6 % (39.0-53.0); HEMOGLOBIN 12.6 g/dL (13.0-17.5); LYMPH # 3.2 x10^3/uL (1.0-4.8); LYMPH % 47 % (24-48); MEAN CORPUSCULAR HEMOGLOBIN 31 pg (25-35); MEAN CORPUSCULAR HGB CONC 34 g/dL (31-37); MEAN CORPUSCULAR VOLUME 91 fL (79-100); MONO # 0.5 x10^3/uL (0.0-1.1); MONO % 7 % (0-9); NEUT % 44 % (31-73); PLATELET COUNT 163 x10^3/uL (140-400); RED BLOOD COUNT 4.14 x10^6/uL (4.30-5.70); RED CELL DISTRIBUTION WIDTH 13.7 % (11.5-14.5); WHITE BLOOD COUNT 6.9 x10^3/uL (4.0-11.0)
[2019-10-04 12:47] LABS: CALCIUM 9.2 mg/dL (8.5-10.1); GFR 70.8; POTASSIUM 4.2 mmol/L (3.5-5.1)
[2019-10-04 12:53] LABS: ALBUMIN 3.5 g/dL (3.4-5.0); MAGNESIUM 2.1 mg/dL (1.8-2.4); TOTAL BILIRUBIN 0.6 mg/dL (0.2-1.0); TOTAL PROTEIN 6.9 g/dL (6.4-8.2)
--- NOTE | 2019-10-04 13:16 | RAD ---
. EXAM: Left lower extremity venous Doppler sonogram. HISTORY: Pain and swelling. TECHNIQUE: Piper scale and color Doppler sonographic evaluation of the left lower extremity veins with spectral waveform analysis was performed. FINDINGS: There is normal color flow, normal compressibility and there are normal spectral waveforms in the common femoral, superficial femoral, popliteal, and posterior tibial vein. There has been greater saphenous vein harvesting. IMPRESSION: No Doppler evidence of lower extremity deep venous thrombosis. Electronically signed by: Shahrzad Wilkes MD (10/04/2019 1:13 PM) [place] [id number]
[2019-10-04] MEDS ORDERED: CEFEPIME HCL IV Push 2 GM VIAL. IVP ONE (13:30)
[2019-10-04] MEDS ORDERED: VANCOMYCIN 2 GM in IV NORMAL SALINE 500ML BAG 500 ML IV ONE ×2 (13:30→14:00)
--- NOTE | 2019-10-04 14:03 | PHYS DOC ---
Past Medical History Past Medical History: DVT, Other Additional Past Medical Histor: CLL, ingunal hernia Past Surgical History: Appendectomy, Tonsillectomy, Other Additional Past Surgical Histo: Hernia repair,ARTERIOGRAM Alcohol Use: None Drug Use: None Adult General Chief Complaint Chief Complaint: LOWER EXTREMITY SWELLING [facility] HPI Patient is a 88 year old male, accompanied by his , who presents to the emergency department with complaints of increased redness and swelling to left lower extremity. Patient states that a week ago his operations director Dr. Valero put him on Keflex for cellulitis. She states that his symptoms did not improve with this medication. He denies any known injury, numbness, tingling, or weakness of the affected extremity. Patient denies any fever, weeping, or drainage from the leg. He also denies any cough, shortness of breath, chest pain, nausea, vomiting, or diarrhea. Patient has a history of CLL eye and states that he had a blood clot a really long time ago but denies taking any anticoagulants. He denies any pain at this time. Review of Systems Review of Systems Constitutional: Denies fever or chills [] Eyes: Denies redness, or eye pain [] HENT: Denies nasal congestion or sore throat [] Respiratory: Denies cough or shortness of breath [] Cardiovascular: No additional information not addressed in HPI [] GI: Denies abdominal pain, nausea, vomiting, or diarrhea [] : Denies dysuria or hematuria [] Musculoskeletal: Denies back pain or joint pain [] Integument: see HPI Neurologic: Denies headache, focal weakness or sensory changes [] Endocrine: Denies polyuria or polydipsia [] Complete systems were reviewed and found to be within normal limits, except as documented in this note. Current Medications Current Medications Current Medications Medications (Trade) Dose Ordered Sig/Pauline Start Time Stop Time Status Last Admin Dose Admin Cefepime HCl (Maxipime) 2 gm 1X ONCE 10/04/19 13:30 10/04/19 13:31 DC 10/04/19 14:16 2 GM Vancomycin HCl (Vanco Per Pharmacy) 1 each PRN DAILY PRN 10/04/19 13:30 10/04/19 15:18 1 EACH Vancomycin HCl 2 gm/Sodium Chloride 500 ml @ 250 mls/hr 1X ONCE 10/04/19 13:30 10/04/19 15:29 10/04/19 14:16 250 MLS/HR Allergies Allergies Allergies Coded Allergies Type Severity Reaction Last Updated Verified iodixanol Allergy Severe RASH 03/15/19 Yes levofloxacin Allergy Mild Rash 03/15/19 Yes Physical Exam Physical Exam Constitutional: Well developed, well nourished, no acute distress, non-toxic appearance. [] HENT: Normocephalic, atraumatic, bilateral external ears normal, oropharynx moist, no oral exudates, nose normal. [] Eyes: PERRLA, EOMI, conjunctiva normal, no discharge. [] Neck: Normal range of motion, no tenderness, supple, no stridor. [] Cardiovascular:Heart rate regular rhythm Lungs & Thorax: Respirations even and unlabored, no retractions, no respiratory distress Skin: Warm, dry; erythema and warmth to LLE with 3+ edema consistent with cellulitis Back: No tenderness Extremities: No tenderness, no cyanosis, no clubbing, ROM intact Neurologic: Alert and oriented X 3, no focal deficits noted. [] Psychologic: Affect normal, judgement normal, mood normal. [] Current Patient Data Vital Signs Vital Signs Date Time Temp Pulse Resp B/P (MAP) Pulse Ox O2 Delivery O2 Flow Rate FiO2 10/04/19 13:00 84 16 143/68 (93) 98 Room Air 10/04/19 12:10 97.7 97.7 Lab Values Laboratory Tests Test 10/04/19 12:30 White Blood Count 6.9 x10^3/uL (4.0-11.0) Red Blood Count 4.14 x10^6/uL (4.30-5.70) L Hemoglobin 12.6 g/dL (13.0-17.5) L Hematocrit 37.6 % (39.0-53.0) L Mean Corpuscular Volume 91 fL (79-100) Mean Corpuscular Hemoglobin 31 pg (25-35) Mean Corpuscular Hemoglobin Concent 34 g/dL (31-37) Red Cell Distribution Width 13.7 % (11.5-14.5) Platelet Count 163 x10^3/uL (140-400) Neutrophils (%) (Auto) 44 % (31-73) Lymphocytes (%) (Auto) 47 % (24-48) Monocytes (%) (Auto) 7 % (0-9) Eosinophils (%) (Auto) 2 % (0-3) Basophils (%) (Auto) 0 % (0-3) Neutrophils # (Auto) 3.0 x10^3/uL (1.8-7.7) Lymphocytes # (Auto) 3.2 x10^3/uL (1.0-4.8) Monocytes # (Auto) 0.5 x10^3/uL (0.0-1.1) Eosinophils # (Auto) 0.1 x10^3/uL (0.0-0.7) Basophils # (Auto) 0.0 x10^3/uL (0.0-0.2) Segmented Neutrophils % 46 % (35-66) Lymphocytes % 47 % (24-48) Monocytes % 2 % (0-10) Eosinophils % 3 % (0-5) Basophils % 2 % (0-3) Platelet Estimate Adequate (ADEQUATE) Sodium Level 139 mmol/L (136-145) Potassium Level 4.2 mmol/L (3.5-5.1) Chloride Level 101 mmol/L (98-107) Carbon Dioxide Level 32 mmol/L (21-32) Anion Gap 6 (6-14) Blood Urea Nitrogen 16 mg/dL (8-26) Creatinine 1.0 mg/dL (0.7-1.3) Estimated GFR (Cockcroft-Gault) 70.8 BUN/Creatinine Ratio 16 (6-20) Glucose Level 84 mg/dL (70-99) Lactic Acid Level 1.1 mmol/L (0.4-2.0) Calcium Level 9.2 mg/dL (8.5-10.1) Magnesium Level 2.1 mg/dL (1.8-2.4) Total Bilirubin 0.6 mg/dL (0.2-1.0) Aspartate Amino Transferase (AST) 32 U/L (15-37) Alanine Aminotransferase (ALT) 33 U/L (16-63) Alkaline Phosphatase 113 U/L (46-116) Total Protein 6.9 g/dL (6.4-8.2) Albumin 3.5 g/dL (3.4-5.0) Albumin/Globulin Ratio 1.0 (1.0-1.7) Laboratory Tests 10/04/19 12:30 Laboratory Tests 10/04/19 12:30 EKG EKG [] Radiology/Procedures Radiology/Procedures PROCEDURE: VENOUS LOWER EXTREMITY LEFT . EXAM: Left lower extremity venous Doppler sonogram. HISTORY: Pain and swelling. TECHNIQUE: Piper scale and color Doppler sonographic evaluation of the left lower extremity veins with spectral waveform analysis was performed. FINDINGS: There is normal color flow, normal compressibility and there are normal spectral waveforms in the common femoral, superficial femoral, popliteal, and posterior tibial vein. There has been greater saphenous vein harvesting. IMPRESSION: No Doppler evidence of lower extremity deep venous thrombosis. [] Course & Med Decision Making Course & Med Decision Making Pertinent Labs and Imaging studies reviewed. (See chart for details) DX: left leg cellulitis 1359- Spoke with Dr. Reyes who is the admitting physician, and care was assumed following discussion of patient. Patient's vital signs stable. Patient remains afebrile, appears nontoxic, respirations even and unlabored. Patient will be admitted to the med/surg floor. Patient's case and plan of care also discussed with Dr. Mcpherson [] Dragon Disclaimer Dragon Disclaimer This electronic medical record was generated, in whole or in part, using a voice recognition dictation system. Departure Departure Impression: Primary Impression: Left leg cellulitis Disposition: ADMITTED INPATIENT Admitting Physician: Damien Reyes Condition: STABLE Referrals: DAMIEN REYES MD (PCP) AL VARGAS RANGE ECOLOGIST Oct 04, 2019 14:03
[2019-10-04 14:36] LABS: % BASOS 2 % (0-3); % EOS 3 % (0-5); % LYMPHS 47 % (24-48); % MONOS 2 % (0-10); % SEGS 46 % (35-66); PLT ESTIMATE ADEQUATE (ADEQUATE)
[2019-10-04 15:00] VITALS: BP 95/44
--- NOTE | 2019-10-04 15:15 | NUR ---
Patient received to room 548 per wheelchair accompanied by . Patient and received admission information packet with patient code for release of information to family and friends. Patient verb. understanding fall protocol and fall contract witnessed. Vancomycin infusing from ER in right AC. Patient verb. understanding orientation to unit and routines. See assessment and admission.
[2019-10-04] MEDS: VANCOMYCIN PER PHARMACY MC PRN (15:18)
--- NOTE | 2019-10-04 15:20 | NUR ---
Pharmacy Vancomycin Dosing Note S:Consulted to monitor and dose vancomycin started 10/04/19. O:MATT CADENA is a 88 year old M with Cellulitis . Height: 6 feet, 5 inches Weight: 84.289629 kg [place] Body Weight: 89.10 Adjusted Body Weight: 87.38 Dosing Weight: Actual Other Antibiotics: CEFEPIME 2GM X1 LABS: Last BUN: 16 Last Creatinine: 1.0 Creatinine Clearance: 63.6 mL/min Last WBC: 6.9 Last Procalcitonin: Tmax (past 24 hours): 97.7 Microbiology: I/O: Drug Levels: Last level: on at Last dose given 10/04/19 at 1416 Vancomycin Dosing: Loading Dose: 2000 mg x1 Dosing Weight: Actual Target Trough: 10-20 A: Based on weight and est. CrCl: P: 1. Vancomycin 2000mg, followed by Vancomycin 1250 mg IV q24h. 2. Follow up Trough level on 10/06/19 at 1330. 3. Pharmacy will continue to monitor, follow and adjust therapy as needed. Fly Arguello [facility], 10/04/19 [id number]
[2019-10-04] MEDS ORDERED: CEPH-264 PO (16:14)
[2019-10-04] MEDS ORDERED: MULT-697 PO (16:14)
[2019-10-04 19:00] VITALS: BP 130/64
[2019-10-04 22:41] VITALS: BP 137/72
[2019-10-05 03:11] VITALS: BP 110/56
[2019-10-05 07:59] VITALS: BP 104/59
--- NOTE | 2019-10-05 10:04 | PDOC ---
Provider Note Provider Note [id number] JOSE MARIA REYES MD Oct 05, 2019 10:04
[2019-10-05] MEDS: VANCOMYCIN PER PHARMACY MC PRN (10:24)
[2019-10-05 11:00] VITALS: BP 115/69
--- NOTE | 2019-10-05 11:22 | HP ---
ADMIT DATE: CHIEF COMPLAINT: Swollen left leg. HISTORY OF PRESENT ILLNESS: An 88-year-old white male has a history of CLL and has been on cephalexin for [address] Valero because of cellulitis of his left lower extremity. His pain got worse and he came to the ER and blood cultures were done and vancomycin was given and he is feeling better at this time. He denies fever, chills, chest pain or any other specific complaints and no injuries to the leg. PAST MEDICAL HISTORY: History of CLL, but he has been off Imbruvica for several months as he was getting recurrent infections. ALLERGIES: LISTED TO LEVOFLOXACIN. No other serious medical problems. SOCIAL HISTORY: , physically active, nondrinker, nonsmoker. FAMILY HISTORY: Unremarkable. REVIEW OF SYSTEMS: Unremarkable. OBJECTIVE: ENT: All within normal limits. NECK: No carotid bruits, masses, or nodes. LUNGS: Clear. CARDIOVASCULAR: Regular rate. No murmur. ABDOMEN: Soft, benign and nontender. EXTREMITIES: Has some mild redness of the anterior left lower leg without well-circumscribed borders. There is mild tenderness and some edema, but no open skin lesions until some abraded areas on the left lateral foot, which are not inflammatory were draining in anyway. Pulses are good. No adenopathy is noted. No fluctuance, no purulence. Right leg is in a case in a stocking. NEUROLOGIC: Physiologic. ASSESSMENT: Left lower extremity cellulitis, unresponsive to cephalexin. PLAN: Continue IV vancomycin with likely transition to Zosyn in a day or two. His CLL was stable off medication and his tetanus status, according to him, is up-to-date. JOSE MARIA REYES MD DR: ANGELITA/demetria JOB#: [id number] / [id number]
[2019-10-05] MEDS: VANCOMYCIN 1.25 GM in IV NORMAL SALINE 250ML 250 ML IV SCH (14:32)
[2019-10-05 15:00] VITALS: BP 111/60
[2019-10-05 19:00] VITALS: BP 123/64
[2019-10-05] MEDS: LACTOBACILLUS RHAMNOSUS GG 1 CAPSULE. PO SCH (20:48)
[2019-10-05 23:00] VITALS: BP 120/67
[2019-10-06 03:15] VITALS: BP 122/81
[2019-10-06 07:00] VITALS: BP 127/62
[2019-10-06] MEDS: LACTOBACILLUS RHAMNOSUS GG 1 CAPSULE. PO SCH ×2 (08:20→21:00)
--- NOTE | 2019-10-06 09:56 | PDOC ---
Provider Note Provider Note vss, labs ok, bc neg so far- L leg less tender and red- cont iv vanc, home in am on doxy likely JOSE MARIA REYES MD Oct 06, 2019 09:56
[2019-10-06 11:00] VITALS: BP 130/60
[2019-10-06 13:52] LABS: CREATININE 1.1 mg/dL (0.7-1.3); GFR 63.5
[2019-10-06 13:58] LABS: VANC TR 5.4 mcg/mL (10.0-20.0)
[2019-10-06] MEDS: VANCOMYCIN 1.25 GM in IV NORMAL SALINE 250ML 250 ML IV SCH (14:00)
[2019-10-06 14:51] VITALS: BP 112/53
[2019-10-06] MEDS: VANCOMYCIN PER PHARMACY MC PRN (15:15)
--- NOTE | 2019-10-06 15:17 | NUR ---
Pharmacy Vancomycin Dosing Note S:Consulted to monitor and dose vancomycin started 10/04/19. O:MATT CADENA is a 88 year old M with Cellulitis . Height: 6 feet, 5 inches Weight: 85.927354 kg [place] Body Weight: 89.10 Adjusted Body Weight: 87.38 Dosing Weight: Actual Other Antibiotics: CEFEPIME 2GM X1 LABS: Last BUN: 16 Last Creatinine: 1.1 Creatinine Clearance: 58 mL/min Last WBC: 6.9 Last Procalcitonin: Tmax (past 24 hours): 97.9 Microbiology: I/O: 690/7 voids Drug Levels: Last Trough level: 5.4 on 10/06/19 at 1325 Last dose given 10/05/19 at 1432 Vancomycin Dosing: Loading Dose: 2000 mg x1 Dosing Weight: Actual Target Trough: 10-20 A: Based on: Subtherapeutic level P: 1. Increase dosing to Vancomycin 1250 mg IV q12h 2. Follow up Trough level on 10/08/19 at 0130 3. Pharmacy will continue to monitor, follow and adjust therapy as needed. TED HERNANDEZ RPH, 10/06/19 [id number]
[2019-10-06 19:00] VITALS: BP 117/73
[2019-10-06 23:00] VITALS: BP 143/85
[2019-10-07] MEDS ORDERED: VANCOMYCIN 1.25 GM in IV NORMAL SALINE 250ML 250 ML IV SCH ×4 (02:00)
[2019-10-07 03:00] VITALS: BP 120/69
[2019-10-07 07:00] VITALS: BP 129/71
[2019-10-07] MEDS: LACTOBACILLUS RHAMNOSUS GG 1 CAPSULE. PO SCH (08:04)
[2019-10-07] MEDS ORDERED: DOXYCYCLINE HYCLATE 100 MG TABLET PO ONE (08:45)
--- NOTE | 2019-10-07 08:48 | PDOC ---
Provider Note Provider Note [id number] JOSE MARIA REYES MD Oct 07, 2019 08:48
--- NOTE | 2019-10-07 09:29 | NUR ---
Wound care: Patient seen per wound care consult. See wound assessment. Patient is well known to us in the wound clinic. Patient has a venous ulcer to left lateral foot. Wound is cleansed and assessed. Recommendations for skin prep and foam dressing. Dressing applied. Dressing change instructions left in room. Patient has bilateral lower extremity edema which patient has own compression stockings he wears daily. Patient stated he will reapply his compression. No other wounds noted upon complete head to toe assessment. Patient sitting on bedside. Call light in reach. Will follow patient regarding wound care.
--- NOTE | 2019-10-07 09:33 | DS ---
DATE OF DISCHARGE: 10/07/2019 HOSPITAL SUMMARY: An 88-year-old white male admitted with cellulitis of the left lower extremity despite oral Keflex for 1 week. Blood cultures had no growth. CBC showed normal white count and all cell lines were normal including the chemistry profile and creatinine 1.0 with GFR of 70 and vancomycin levels were as listed per the chart. Ultrasound of the left leg showed no evidence of deep vein thrombosis. He was given IV doxycycline and improved steadily and is able to switch to oral doxycycline and be discharged as an outpatient. His IV was vancomycin while in the hospital. FINAL DIAGNOSES: Left lower extremity cellulitis. OPERATIONS, PROCEDURES, COMPLICATIONS, AND CONSULTATIONS: None. DISPOSITION: Home meds remain the same. 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 Doxycycline 100 mg twice a day for 1 more week. ACTIVITY: As tolerated. FOLLOWUP: Follow up on an as needed basis. PROGNOSIS: Good. JOSE MARIA REYES MD DR: ANGELITA/demetria JOB#: [id number] / [id number]
[2019-10-07 10:49] VITALS: BP 141/60
--- NOTE | 2019-10-07 12:01 | NUR ---
Pt left unit with via private vehicle at approx 1135. Pt left by wheelchair. IV out with no complications. Pt stable upon discharge.
== END 2019-10-07 11:35 | disposition home or self-care (01) | DRG 603 ==
LOC: ER 11:43 → 5 SOUTH 13:59
PROVIDERS: ADMIT Family Medicine; ATTEND Family Medicine
DX: L03.116 Cellulitis of left lower limb (principal); Z85.6 Personal history of leukemia; Z90.49 Acquired absence of other specified parts of digestive tract; Z88.8 Allergy status to other drugs, medicaments and biological substances; Z79.899 Other long term (current) drug therapy; Z86.718 Personal history of other venous thrombosis and embolism
CPT/HCPCS: 36415; 80053; 80202; 82565; 83605; 83735; 85007; 85025; 93971; 96365; 96375; J0692; J3370; J7040; J7050; 99285-25; G0378; J7030

== ENCOUNTER → 2019-11-04 | Outpatient (CLI) | payer MEDICARE, BC ==
[2019-10-07 10:49] VITALS: BP 141/60
[~2019-11-04] MED LIST changes: +CEPH-264 PO; +MULT-697 PO; +REGADENOSON 0.4 MG/5 ML DISP.SYRIN. IV ONE
--- NOTE | 2019-11-04 14:24 | RAD ---
MR#: [id number] Date of Study: 11/04/2019 Ordering Physician: MARYURI EVANS Referring Physician: KHADIJAH ARIAS Tech: ALIVIA Velarde, ARRT (R) (N) APPROVED REPORT Test Type: Pharmacological Stress Nurse/Tech: Kristopher Draper RN Test Indications: cardiomyopahy Cardiac History: No known cardiac Medications: See Electronic Medical Record Medical History: See Electronic Medical Record Resting ECG: SR Resting Heart Rate: 70 bpm Resting Blood Pressure: 123/67mmHg Pretest Chest Pain: None Nurse/Tech Notes Lungs CTA, S1S2 Consent: The procedure was explained to the patient in lay terms. Informed consent was witnessed. Sanket eout was entered into [employer]. History and Stress Test performed by RT Milana Alexander) (N) Pharm. Details Pharmacologic stress testing was performed using 0.4mg per 5ml of regadenoson given intravenously ove r 7-10 seconds. Stress Symptoms No chest pain or symptoms. POST EXERCISE Reason for Termination: Infusion complete Max HR: 102 bpm Max Blood Pressure: 125/69mmHg Blood Pressure response to exercise: Normal blood pressure response during stress. Heart Rate response to exercise: normal response Chest Pain: No. Arrhythmia: Yes. PVC ST Change: No. INTERPRETATION Stress EKG Conclusion: No evidence of stress induced EKG changes. 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 60min. Rest Admin Site:IV - Right ForearmAdministrator:RUFUS Dhillon Stress Admin Site: IV - Right ForearmAdministrator: RT Catherine (R)(N) STRESS DATA End Diast. Vol.170.0mlLVEDV index BSA79.0ml End Syst. Vol.72.0mlLVESV index BSA33.0ml Myocardial Txxj720.0gEject. Amxtxape01.0% Stress Scores Regional WT2.00Summed WT11.00 Regional WM0.00Summed WM6.00 LV Perfusion Normal perfusion at stress imaging Resting images are degraded due to subdiaphragmatic attenuation artifact Wall Motion Low normal LV function. EF 55% LV Perf. Quant 17 Seg. SSS0.00 17 Seg. SRS6.00 17 Seg. SDS0.00 Stress Defect Extent (% LAD)2.50Rest Defect Extent (% LAD)10.00Rev. Defect Extent (% LAD)2.50 Stress Defect Extent (% LCX) 0.00Rest Defect Extent (% LCX)11.30Rev. Defect Extent (% LCX)0.00 Stress Defect Extent (% RCA)0.00Rest Defect Extent (% RCA)28.90Rev. Defect Extent (% RCA)0.00 Stress Defect Extent (% ZANE)0.90Rest Defect Extent (% ZANE)13.70Rev. Defect Extent (% ZANE)0.90 Other Information Quality:Fair Risk Assessment: Low Risk Conclusion 1. No evidence of EKG changes with stress testing. 2. Normal perfusion at stress. Rest images degraded due to motion artifact. 3. Low risk study. 4. EF > 60%. Signed by : Sky Encarnacion, Electronically Approved : 11/04/2019 14:24:32
== END | disposition home or self-care (01) ==
LOC: NM 09:59
PROVIDERS: ATTEND Internal Medicine Cardiovascular Disease
DX: I49.3 Ventricular premature depolarization (principal); I42.9 Cardiomyopathy, unspecified
CPT/HCPCS: 78452; 93017; A9500; J2785

== ENCOUNTER → 2020-07-03 | Outpatient (CLI) | payer MEDICARE, BC ==
[2019-12-13 07:00] VITALS: BP 117/35
[~2020-07-03] MED LIST changes: -REGADENOSON 0.4 MG/5 ML DISP.SYRIN. IV ONE
[2020-07-03 15:41] LABS: FREE T4 0.94 ng/dL (0.76-1.46); THYROID STIM HORMONE (TSH) 3.27 uIU/mL (0.358-3.74)
== END ==
LOC: ONCLAB 14:00
PROVIDERS: ATTEND Internal Medicine Hematology & Oncology
DX: C91.11 Chronic lymphocytic leukemia of B-cell type in remission (principal); I10 Essential (primary) hypertension
CPT/HCPCS: 36415; 84439; 84443

== ENCOUNTER → 2020-08-07 | Outpatient (CLI) | payer MEDICARE, BC ==
[2019-12-13 07:00] VITALS: BP 117/35
[2020-08-07 11:24] LABS: BASO % 0 % (0-3); EOS # 0.3 x10^3/uL (0.0-0.7); EOS % 3 % (0-3); HEMATOCRIT 38.8 % (39.0-53.0); HEMOGLOBIN 13.2 g/dL (13.0-17.5); LYMPH # 6.9 x10^3/uL (1.0-4.8); LYMPH % 68 % (24-48); MEAN CORPUSCULAR HEMOGLOBIN 31 pg (25-35); MEAN CORPUSCULAR HGB CONC 34 g/dL (31-37); MEAN CORPUSCULAR VOLUME 93 fL (79-100); MONO # 0.6 x10^3/uL (0.0-1.1); MONO % 6 % (0-9); NEUT # 2.3 x10^3/uL (1.8-7.7); NEUT % 23 % (31-73); PLATELET COUNT 110 x10^3/uL (140-400); RED BLOOD COUNT 4.18 x10^6/uL (4.30-5.70); WHITE BLOOD COUNT 10.2 x10^3/uL (4.0-11.0)
[2020-08-07 11:41] LABS: CALCIUM 9.1 mg/dL (8.5-10.1); GFR 70.7; POTASSIUM 4.1 mmol/L (3.5-5.1)
[2020-08-07 11:47] LABS: ALBUMIN 3.7 g/dL (3.4-5.0); ALBUMIN/GLOBULIN RATIO 1.3 (1.0-1.7); TOTAL BILIRUBIN 0.6 mg/dL (0.2-1.0); TOTAL PROTEIN 6.5 g/dL (6.4-8.2)
== END | disposition home or self-care (01) ==
LOC: ONCLAB 11:03
PROVIDERS: ATTEND Internal Medicine Hematology & Oncology
DX: C91.11 Chronic lymphocytic leukemia of B-cell type in remission (principal)
CPT/HCPCS: 36415; 80053; 83615; 85025

== ENCOUNTER → 2020-10-27 | Outpatient (CLI) | payer MEDICARE, BC ==
[2019-12-13 07:00] VITALS: BP 117/35
[2020-10-27 10:38] LABS: BASO % 0 % (0-3); EOS # 0.1 x10^3/uL (0.0-0.7); EOS % 1 % (0-3); HEMATOCRIT 39.8 % (39.0-53.0); HEMOGLOBIN 13.4 g/dL (13.0-17.5); LYMPH # 7.1 x10^3/uL (1.0-4.8); LYMPH % 65 % (24-48); MEAN CORPUSCULAR HEMOGLOBIN 31 pg (25-35); MEAN CORPUSCULAR HGB CONC 34 g/dL (31-37); MEAN CORPUSCULAR VOLUME 92 fL (79-100); MONO # 0.7 x10^3/uL (0.0-1.1); MONO % 7 % (0-9); NEUT % 28 % (31-73); PLATELET COUNT 130 x10^3/uL (140-400); RED BLOOD COUNT 4.33 x10^6/uL (4.30-5.70); RED CELL DISTRIBUTION WIDTH 13.5 % (11.5-14.5)
[2020-10-27 10:58] LABS: CALCIUM 9.2 mg/dL (8.5-10.1); CREATININE 0.9 mg/dL (0.7-1.3); GFR 79.8; POTASSIUM 4.2 mmol/L (3.5-5.1)
[2020-10-27 11:04] LABS: ALBUMIN 3.5 g/dL (3.4-5.0); ALBUMIN/GLOBULIN RATIO 1.2 (1.0-1.7); TOTAL BILIRUBIN 0.7 mg/dL (0.2-1.0); TOTAL PROTEIN 6.5 g/dL (6.4-8.2)
== END ==
LOC: ONCLAB 10:22
PROVIDERS: ATTEND Internal Medicine Hematology & Oncology
DX: C91.11 Chronic lymphocytic leukemia of B-cell type in remission (principal); R94.6 Abnormal results of thyroid function studies
CPT/HCPCS: 36415; 80053; 83615; 84443; 85025

== ENCOUNTER → 2021-01-25 | Outpatient (CLI) | payer MEDICARE, BC ==
[2020-11-17 11:00] VITALS: BP 128/68
[2021-01-25 10:26] LABS: BASO % 0 % (0-3); EOS # 0.3 x10^3/uL (0.0-0.7); EOS % 2 % (0-3); HEMATOCRIT 39.1 % (39.0-53.0); HEMOGLOBIN 13.1 g/dL (13.0-17.5); LYMPH # 8.8 x10^3/uL (1.0-4.8); LYMPH % 74 % (24-48); MEAN CORPUSCULAR HEMOGLOBIN 30 pg (25-35); MEAN CORPUSCULAR HGB CONC 34 g/dL (31-37); MEAN CORPUSCULAR VOLUME 90 fL (79-100); MONO # 0.6 x10^3/uL (0.0-1.1); MONO % 6 % (0-9); NEUT # 2.1 x10^3/uL (1.8-7.7); NEUT % 18 % (31-73); PLATELET COUNT 116 x10^3/uL (140-400); RED BLOOD COUNT 4.36 x10^6/uL (4.30-5.70); RED CELL DISTRIBUTION WIDTH 14.6 % (11.5-14.5); WHITE BLOOD COUNT 11.9 x10^3/uL (4.0-11.0)
[2021-01-25 10:28] LABS: GFR 70.5; POTASSIUM 4.1 mmol/L (3.5-5.1)
[2021-01-25 10:35] LABS: ALBUMIN 3.7 g/dL (3.4-5.0); ALBUMIN/GLOBULIN RATIO 1.3 (1.0-1.7); TOTAL BILIRUBIN 0.6 mg/dL (0.2-1.0); TOTAL PROTEIN 6.5 g/dL (6.4-8.2)
[2021-01-25 11:16] LABS: % BASOS 1 % (0-3); % EOS 2 % (0-5); % LYMPHS 82 % (24-48); % MONOS 4 % (0-10); % SEGS 11 % (35-66); PLT ESTIMATE DECREASED (ADEQUATE); SMUDGE CELLS PRESENT
== END ==
LOC: ONCLAB 09:58
PROVIDERS: ATTEND Internal Medicine Hematology & Oncology
DX: C91.11 Chronic lymphocytic leukemia of B-cell type in remission (principal)
CPT/HCPCS: 36415; 80053; 84443; 85007; 85025

== ENCOUNTER 2021-03-12 10:23 | Inpatient (IN) | payer MEDICARE, BC ==
[~2021-03-12] VITALS: Ht 195.6 cm; Wt 78.6 kg
--- NOTE | 2021-03-12 12:25 | RAD ---
US DPLX VENOUS EXTREMITY LOWER LT History: Reason: left leg swelling and redness / Spl. Instructions: / History: Comparison: None. Discussion: Multiple longitudinal and transverse high resolution real-time images of the venous system of left lo wer extremity were obtained with color and Doppler sampling. The common femoral, superficial femoral, popliteal and proximal calf veins are all patent and demonstrate normal flow and compressibility. No rmal respiratory phasicity and augmentation is present. Impression: 1. No evidence of deep vein thrombosis. Electronically signed by: Arun Horner DO (03/12/2021 12:23 PM) [id number]
--- NOTE | 2021-03-12 12:32 | ED.ADGEN ---
Past Medical History Past Medical History: DVT, Other Additional Past Medical Histor: CLL, ingunal hernia Past Surgical History: Appendectomy, Tonsillectomy, Other Additional Past Surgical Histo: Hernia repair,ARTERIOGRAM Smoking Status: Former Smoker Alcohol Use: None Drug Use: None General Adult EDM: Chief Complaint: OTHER COMPLAINTS HPI: HPI: Patient is a 89 year old male, accompanied by his , who presents emergency department with complaints of increased swelling, redness, and warmth from his lower left leg. Patient ports that he was seen by wound care 2 days ago and they advised him to go to the ER to have his leg looked at. He has been taking amoxicillin and doxycycline with no improvement in his condition. Patient states that he has a wound to his inner left ankle that he has been being treated for wound care. Patient states he has had problems with intermittent cellulitis for years. He denies any fever, cough, body aches, chest pain, shortness of breath, nausea, vomiting, diarrhea, abdominal pain,. Patient denies any injury to his left lower extremity. He denies any previous history of blood clots in his legs or his lungs. He currently rates his pain a 7 out of 10 on the pain scale, he states his pain is intermittent. He denies any alleviating or exacerbating factors. Review of Systems: Review of Systems: Complete ROS is negative unless otherwise noted in HPI. Current Medications: Current Medications Medications (Trade) Dose Ordered Sig/[facility] Start Time Stop Time Status Last Admin Dose Admin Vancomycin HCl (Vanco Per Pharmacy) 1 each PRN DAILY PRN 03/12/21 12:30 UNV Vancomycin HCl 1.75 gm/Sodium Chloride 500 ml @ 250 mls/hr 1X ONCE 03/12/21 12:45 03/12/21 14:44 Allergies: Allergies: Allergies Coded Allergies Type Severity Reaction Last Updated Verified iodixanol Allergy Severe RASH 03/15/19 Yes levofloxacin Allergy Mild Rash 03/15/19 Yes Physical Exam: PE: See Above Constitutional: Well developed, well nourished, no acute distress, non-toxic appearance. [] HENT: Normocephalic, atraumatic, bilateral external ears normal, nose normal. [] Eyes: PERRLA, EOMI, conjunctiva normal, no discharge. [] Neck: Normal range of motion, no stridor. [] Cardiovascular:Heart rate regular rhythm, diffuse murmur Lungs & Thorax: Respirations even and unlabored, no retractions, no respiratory distress, lungs CTA Abdomen: Soft, nontender Skin: Warm, dry; erythema and warmth of the lower left extremity with a 2.5 cm x 1 cm wound to the medial left ankle that is draining yellow fluid Extremities: Lower left extremity: 3+ edema, diffuse erythema, normal sensation, cap refill less than 2 seconds, no cyanosis, ROM intact Neurologic: Alert and oriented X 3, normal motor, normal sensory, no focal deficits noted. [] Psychologic: Affect normal, judgement normal, mood normal. [] Current Patient Data: Labs: Laboratory Tests Test 03/12/21 12:15 White Blood Count 10.9 x10^3/uL (4.0-11.0) Red Blood Count 4.01 x10^6/uL (4.30-5.70) L Hemoglobin 12.2 g/dL (13.0-17.5) L Hematocrit 36.3 % (39.0-53.0) L Mean Corpuscular Volume 91 fL (79-100) Mean Corpuscular Hemoglobin 30 pg (25-35) Mean Corpuscular Hemoglobin Concent 34 g/dL (31-37) Red Cell Distribution Width 14.6 % (11.5-14.5) H Platelet Count 128 x10^3/uL (140-400) L Neutrophils (%) (Auto) 27 % (31-73) L Lymphocytes (%) (Auto) 64 % (24-48) H Monocytes (%) (Auto) 7 % (0-9) Eosinophils (%) (Auto) 3 % (0-3) Basophils (%) (Auto) 0 % (0-3) Neutrophils # (Auto) 2.9 x10^3/uL (1.8-7.7) Lymphocytes # (Auto) 7.0 x10^3/uL (1.0-4.8) H Monocytes # (Auto) 0.7 x10^3/uL (0.0-1.1) Eosinophils # (Auto) 0.3 x10^3/uL (0.0-0.7) Basophils # (Auto) 0.0 x10^3/uL (0.0-0.2) Sodium Level 142 mmol/L (136-145) Potassium Level 4.2 mmol/L (3.5-5.1) Chloride Level 106 mmol/L (98-107) Carbon Dioxide Level 33 mmol/L (21-32) H Anion Gap 3 (6-14) L Blood Urea Nitrogen 23 mg/dL (8-26) Creatinine 1.0 mg/dL (0.7-1.3) Estimated GFR (Cockcroft-Gault) 70.5 BUN/Creatinine Ratio 23 (6-20) H Glucose Level 65 mg/dL (70-99) L Lactic Acid Level 0.9 mmol/L (0.4-2.0) Calcium Level 8.8 mg/dL (8.5-10.1) Magnesium Level 2.2 mg/dL (1.8-2.4) Total Bilirubin 0.5 mg/dL (0.2-1.0) Aspartate Amino Transferase (AST) 34 U/L (15-37) Alanine Aminotransferase (ALT) 34 U/L (16-63) Alkaline Phosphatase 87 U/L (46-116) Total Protein 6.4 g/dL (6.4-8.2) Albumin 3.6 g/dL (3.4-5.0) Albumin/Globulin Ratio 1.3 (1.0-1.7) Laboratory Tests 03/12/21 12:15 Laboratory Tests 03/12/21 12:15 Vital Signs: Vital Signs Date Time Temp Pulse Resp B/P (MAP) Pulse Ox O2 Delivery O2 Flow Rate FiO2 03/12/21 11:54 97.6 72 20 134/65 (88) 98 Room Air 97.6 EKG: EKG: [] Heart Score: C/O Chest Pain: No Risk Scores: Score 0 - 3: 2.5% MACE over next 6 weeks - Discharge Home Score 4 - 6: 20.3% MACE over next 6 weeks - Admit for Clinical Observation Score 7 - 10: 72.7% MACE over next 6 weeks - Early Invasive Strategies Radiology/Procedures: Radiology/Procedures: PROCEDURE: VENOUS LOWER EXTREMITY LEFT US DPLX VENOUS EXTREMITY LOWER LT History: Reason: left leg swelling and redness / Spl. Instructions: / History: Comparison: None. Discussion: Multiple longitudinal and transverse high resolution real-time images of the venous system of left lower extremity were obtained with color and Doppler sampling. The common femoral, superficial femoral, popliteal and proximal calf veins are all patent and demonstrate normal flow and compressibility. Normal respiratory phasicity and augmentation is present. Impression: 1. No evidence of deep vein thrombosis. [] Course & Med Decision Making: Course & Med Decision Making Pertinent Labs and Imaging studies reviewed. (See chart for details) 1255-spoke with Dr. Peterson who is the admitting physician, and care was assumed following discussion of patient. Will admit patient for lower left extremity cellulitis. Advised that 1 dose of vancomycin have been ordered, will order 3.375 mg of IV Zosyn as instructed. Patient's vital signs stable. Patient remains afebrile, appears nontoxic, respirations even and unlabored. Patient will be admitted to the medical/surgical floor. Patient's case and plan of care also discussed with Dr. Solorio [] Chema Disclaimer: Chema Disclaimer: This electronic medical record was generated, in whole or in part, using a voice recognition dictation system. Departure Departure Impression: Primary Impression: Left leg cellulitis Disposition: ADMITTED INPATIENT Admitting Physician: Damien Peterson Condition: STABLE Referrals: DAMIEN PETERSON MD (PCP) [facility] [employer] Mar 12, 2021 12:32
[2021-03-12 12:33] LABS: BASO % 0 % (0-3); EOS # 0.3 x10^3/uL (0.0-0.7); EOS % 3 % (0-3); HEMATOCRIT 36.3 % (39.0-53.0); HEMOGLOBIN 12.2 g/dL (13.0-17.5); LYMPH % 64 % (24-48); MEAN CORPUSCULAR HEMOGLOBIN 30 pg (25-35); MEAN CORPUSCULAR HGB CONC 34 g/dL (31-37); MEAN CORPUSCULAR VOLUME 91 fL (79-100); MONO # 0.7 x10^3/uL (0.0-1.1); MONO % 7 % (0-9); NEUT # 2.9 x10^3/uL (1.8-7.7); NEUT % 27 % (31-73); PLATELET COUNT 128 x10^3/uL (140-400); RED BLOOD COUNT 4.01 x10^6/uL (4.30-5.70); RED CELL DISTRIBUTION WIDTH 14.6 % (11.5-14.5); WHITE BLOOD COUNT 10.9 x10^3/uL (4.0-11.0)
[2021-03-12 12:41] LABS: CALCIUM 8.8 mg/dL (8.5-10.1); GFR 70.5; POTASSIUM 4.2 mmol/L (3.5-5.1)
[2021-03-12] MEDS ORDERED: VANCOMYCIN 1.75 GM in IV NORMAL SALINE 500ML BAG 500 ML IV ONE (12:45)
[2021-03-12 12:56] LABS: ALBUMIN 3.6 g/dL (3.4-5.0); ALBUMIN/GLOBULIN RATIO 1.3 (1.0-1.7); MAGNESIUM 2.2 mg/dL (1.8-2.4); TOTAL BILIRUBIN 0.5 mg/dL (0.2-1.0); TOTAL PROTEIN 6.4 g/dL (6.4-8.2)
[2021-03-12] MEDS ORDERED: PIPERACILLIN/TAZOBACTAM 3.375 GM in IV NORMAL SALINE 50ML 50 ML IV ONE (13:15)
[2021-03-12 13:33] LABS: % ATYL 15 % (0-0); % BASOS 1 % (0-3); % EOS 1 % (0-5); % LYMPHS 58 % (24-48); % MONOS 2 % (0-10); % SEGS 23 % (35-66)
[2021-03-12 13:34] LABS: ANISOCYTOSIS PRESENT; PLT ESTIMATE DECREASED (ADEQUATE)
[2021-03-12 19:00] VITALS: BP 143/68
--- NOTE | 2021-03-12 20:20 | NUR ---
ADMISSION NOTE Pt admitted to room 440 from ER. Pts at bedside. Admission assessment and questions completed at this time. POC discussed. Pt denies any further questions. Given call light and instructed on use. Pt educated about being fall risk and need to call when going to bathroom. Pt vu. Bed alarm on. Wound to LLE pictured and new dressing applied. Dr. Peterson notified of pts admission to floor, admit orders received. Will monitor.
[2021-03-12] MEDS ORDERED: ACET325T21 PO (20:29)
[2021-03-12] MEDS ORDERED: ACETAMINOPHEN 325 MG TABLET. PO PRN (20:30)
[2021-03-12] MEDS: VANCOMYCIN PER PHARMACY MC PRN (20:37)
--- NOTE | 2021-03-12 20:40 | NUR ---
Pharmacy Vancomycin Dosing Note S: Consulted to monitor and dose vancomycin started 03/12/21. O: MATT CADENA is a 89 year old M with Cellulitis, . Other Antibiotics: ZOSYN X1 IN ED LABS: Last BUN: 23 Last Creatinine: 1.0 Creatinine Clearance: 60 mL/min Last WBC: 10.9 Tmax (past 24 hours): AFEBRILE Vancomycin Dosing: Dosing Weight: Actual Target Trough: 10-20 A: Based on: VANCO dosing guidelines and previous admission 10/2020 P: 1. Begin Vancomycin 1750mg LOAD dose, then 1000 mg IV q12h 2. Follow up Trough level on 03/13/21 at 1330 3. Pharmacy will continue to monitor, follow and adjust therapy as needed. GERALDINE MOORE RPH, 03/12/21 [id number]
[2021-03-12 23:00] VITALS: BP 140/62
[2021-03-13] MEDS: VANCOMYCIN 1 GM in IV NORMAL SALINE 250ML 250 ML IV SCH ×2 (01:40→14:29)
[2021-03-13 03:00] VITALS: BP 127/61
[2021-03-13 07:00] VITALS: BP 101/52
--- NOTE | 2021-03-13 08:48 | PDOC ---
Provider Note Date of Service: DATE: 03/13/21 TIME: 08:46 Provider Note [id number] Justifications for Admission Other Justification JOSE MARIA REYES MD Mar 13, 2021 08:48
--- NOTE | 2021-03-13 09:04 | HP ---
ADMIT DATE: 03/13/2021 CHIEF COMPLAINT: Painful left leg. HISTORY OF PRESENT ILLNESS: An 89-year-old white male with a history of CLL and chronic venous stasis ulcers. [facility] an ongoing left medial heel ulcer for several weeks. He has been using compression pumps but apparently developed signs of infection 2-3 days prior to admission. He was placed on Augmentin and doxycycline but failed to improve and was admitted through the ER with cellulitis of the left lower extremity. Pretreatment wound cultures apparently has not been done. PAST MEDICAL HISTORY: ALLERGIES: ALLERGY TO LEVAQUIN. He takes only a few meds. Otherwise, he is very healthy. 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 SOCIAL HISTORY: Nonsmoker, physically active, , not employed. FAMILY HISTORY: Unremarkable. REVIEW OF SYSTEMS: No other complaints. OBJECTIVE: ENT: All within normal limits. NECK: No masses, nodes or bruits. LUNGS: Clear. CARDIOVASCULAR: Regular rate. No irregular beat or murmur. ABDOMEN: Benign. EXTREMITIES: Left leg shows diffuse redness with some spotty red papules below the knee and mild diffuse tenderness and swelling. The ankle ulcers are wrapped and not unwrapped. Pedal pulses are adequate. Right leg appears to be normal. NEUROLOGIC: Physiologic and nonfocal. ASSESSMENT: Left leg cellulitis secondary to venous stasis ulcer and secondary infection. PLAN: Continue vancomycin and Zosyn, pending cultures and clinical response. Daily Lovenox, DVT prophylaxis. JOSE MARIA REYES MD DR: ANGELITA/demetria JOB#: [id number] / [id number]
[2021-03-13] MEDS: FUROSEMIDE 40 MG TABLET. PO SCH (09:37)
[2021-03-13] MEDS: POTASSIUM CHLORIDE 20 MEQ TABLET.ER. PO SCH (09:37)
[2021-03-13] MEDS: MULTIVITAMIN with MINERAL TABLET. PO SCH (09:37)
[2021-03-13] MEDS: ENOXAPARIN 40 MG/0.4 ML SYRINGE. SQ SCH (09:42)
[2021-03-13] MEDS: PIPERACILLIN/TAZOBACTAM 3.375 GM in IV NORMAL SALINE 50ML 50 ML IV SCH ×3 (10:26→17:20)
[2021-03-13 11:00] VITALS: BP 132/63
[2021-03-13] MEDS: VANCOMYCIN PER PHARMACY MC PRN (14:24)
--- NOTE | 2021-03-13 14:24 | NUR ---
Pharmacy Vancomycin Dosing Note S: Consulted to monitor and dose vancomycin started 03/12/21. O: MATT CADENA is a 89 year old M with Cellulitis. Other Antibiotics: zosyn LABS: Last BUN: 23 Last Creatinine: 1.0 Creatinine Clearance: 60 mL/min Last WBC: 10.9 Last Procalcitonin: - Tmax (past 24 hours): 98 Microbiology: 03/12: blood cx: NGTD I/O: 900 / -- (1 void) Drug Levels: Last Trough level: 13 on 03/13/21 at 1345 Last dose given 03/13/21 at 0140 Vancomycin Dosing: Dosing Weight: Actual Target Trough: 10-20 A: Based on: patient's trough level and renal function. P: 1. Continue Vancomycin 1000 mg IV q12h. 2. Follow up Trough level as needed. 3. Pharmacy will continue to monitor, follow and adjust therapy as needed. IWRIN THAPA RPH, 03/13/21 [id number]
[2021-03-13 15:00] VITALS: BP 120/48
[2021-03-13 19:00] VITALS: BP 161/67
[2021-03-13 23:00] VITALS: BP_SYST 126; BP_SYST 151; BP_DIAS 61; BP_DIAS 67
[2021-03-14] MEDS: PIPERACILLIN/TAZOBACTAM 3.375 GM in IV NORMAL SALINE 50ML 50 ML IV SCH ×4 (00:12→18:30)
[2021-03-14] MEDS: VANCOMYCIN 1 GM in IV NORMAL SALINE 250ML 250 ML IV SCH ×2 (01:58→15:36)
[2021-03-14 03:00] VITALS: BP 136/72
[2021-03-14 07:00] VITALS: BP 133/69
[2021-03-14 07:39] LABS: CREATININE 1.2 mg/dL (0.7-1.3); GFR 57.1
[2021-03-14] MEDS: FUROSEMIDE 40 MG TABLET. PO SCH (09:20)
[2021-03-14] MEDS: POTASSIUM CHLORIDE 20 MEQ TABLET.ER. PO SCH (09:20)
[2021-03-14] MEDS: MULTIVITAMIN with MINERAL TABLET. PO SCH (09:20)
[2021-03-14] MEDS: ENOXAPARIN 40 MG/0.4 ML SYRINGE. SQ SCH (09:20)
--- NOTE | 2021-03-14 10:16 | PDOC ---
Provider Note Date of Service: DATE: 03/14/21 TIME: 10:14 Provider Note vss, no temp, L leg edema better, redness also- will cont same emds for now- L ankle wounds small Justifications for Admission Other Justification JOSE MARIA REYES MD Mar 14, 2021 10:16
[2021-03-14] MEDS: VANCOMYCIN PER PHARMACY MC PRN (10:56)
[2021-03-14 11:00] VITALS: BP 141/55
[2021-03-14 15:00] VITALS: BP 132/67
[2021-03-14 19:00] VITALS: BP 151/61
[2021-03-14 23:00] VITALS: BP 132/65
[2021-03-15] MEDS: PIPERACILLIN/TAZOBACTAM 3.375 GM in IV NORMAL SALINE 50ML 50 ML IV SCH ×4 (00:29→17:53)
[2021-03-15] MEDS: VANCOMYCIN 1 GM in IV NORMAL SALINE 250ML 250 ML IV SCH ×2 (02:34→14:18)
[2021-03-15 03:00] VITALS: BP 133/61
[2021-03-15 07:00] VITALS: BP 132/65
--- NOTE | 2021-03-15 07:57 | PDOC ---
Provider Note Date of Service: DATE: 03/15/21 TIME: 07:56 Provider Note no temp, L leg slowly beetter re edema/redness- logan finish 1 more day iv meds, then home on doxy likely Justifications for Admission Other Justification JOSE MARIA REYES MD Mar 15, 2021 07:57
[2021-03-15] MEDS: FUROSEMIDE 40 MG TABLET. PO SCH (08:45)
[2021-03-15] MEDS: POTASSIUM CHLORIDE 20 MEQ TABLET.ER. PO SCH (08:45)
[2021-03-15] MEDS: MULTIVITAMIN with MINERAL TABLET. PO SCH (08:45)
[2021-03-15] MEDS: ENOXAPARIN 40 MG/0.4 ML SYRINGE. SQ SCH (08:46)
[2021-03-15 10:47] VITALS: BP 110/53
[2021-03-15] MEDS: VANCOMYCIN PER PHARMACY MC PRN (13:28)
[2021-03-15 14:29] VITALS: BP 128/58
--- NOTE | 2021-03-15 17:01 | NUR ---
Wound/Ostomy Care Wound Type/Assessment: Patient seen per wound care consult. See wound assessment. Patient is well known to us from the wound clinic. Patient has venous ulcer to left lower leg. Wound cleansed and assessed. Treatment Recommendations/Plan: Recommendations for Hydrofera Blue to wound bed, cover with ABD pad and kerlix. Change every 3 days. Education provided: pt ambulatory, educated on PU prevention Offloading surface/device: pillow to offload Recommended Referrals/Tests: n/a Discharge Recommendations for dressings: same as above, pt informed to take dressing upon discharge so can do his wound care dressing changes. Pt to follow up in [facility] next week.
[2021-03-15 19:00] VITALS: BP 119/53
[2021-03-15 23:00] VITALS: BP 127/70
[2021-03-16] MEDS: PIPERACILLIN/TAZOBACTAM 3.375 GM in IV NORMAL SALINE 50ML 50 ML IV SCH ×2 (00:09→06:18)
[2021-03-16] MEDS: VANCOMYCIN 1 GM in IV NORMAL SALINE 250ML 250 ML IV SCH (02:13)
[2021-03-16 03:00] VITALS: BP 133/58
[2021-03-16 06:58] VITALS: BP 128/64
[2021-03-16 07:25] LABS: CREATININE 0.9 mg/dL (0.7-1.3); GFR 79.6
--- NOTE | 2021-03-16 07:53 | PDOC ---
Provider Note Date of Service: DATE: 03/16/21 TIME: 07:52 Provider Note [id number] Justifications for Admission Other Justification JOSE MARIA REYES MD Mar 16, 2021 07:52
[2021-03-16] MEDS: MULTIVITAMIN with MINERAL TABLET. PO SCH (08:26)
[2021-03-16] MEDS: FUROSEMIDE 40 MG TABLET. PO SCH (08:26)
[2021-03-16] MEDS: POTASSIUM CHLORIDE 20 MEQ TABLET.ER. PO SCH (08:26)
[2021-03-16] MEDS: ENOXAPARIN 40 MG/0.4 ML SYRINGE. SQ SCH (08:27)
[2021-03-16 10:39] VITALS: BP 74/46
[2021-03-16 10:52] VITALS: BP 94/46
--- NOTE | 2021-03-16 11:07 | DS ---
DATE OF DISCHARGE: 03/16/2021 HOSPITAL SUMMARY: An 89-year-old white male with a left leg cellulitis from [facility] and venous stasis ulcers on the medial left heel, had failed outpatient antibiotic management and came in with a swollen, red left leg. CBC was unremarkable as was the chemistry profile and blood cultures had no growth. Wound culture had not been done as an outpatient. Lower extremity sonogram showed no sign of DVT. He was treated with IV vancomycin and Zosyn and then slowly and gradually improved and has been afebrile and his left leg redness is largely gone. He will be switched to oral doxycycline and followed as an outpatient at this point. FINAL DIAGNOSES: Left leg cellulitis. OPERATIONS, PROCEDURES, COMPLICATIONS, CONSULTATIONS: None. DISPOSITION: Home meds remain the same. Doxycycline 100 mg twice a day for 5 more days. Office followup in 1 week in [facility] as recommended by them. PROGNOSIS: Guarded. JOSE MARIA REYES MD DR: ANGELITA/demetria JOB#: [id number] / [id number]
[2021-03-16 12:34] VITALS: BP 117/58
--- NOTE | 2021-03-16 12:50 | NUR ---
PT DISCHARGED HOME WITH SELF CARE. DISCHARGE INSTRUCTIONS AND PRESCRIPTIONS DISCUSSED. PT AND VERBALIZED UNDERSTANDING. PT ASSISTED TO WHEELCHAIR AND WAS SECURED IN CAR WITH .
== END 2021-03-16 12:52 | disposition home or self-care (01) | DRG 603 ==
LOC: ER 10:23 → ED HOLD 14:01 → 4 NORTH 19:22
PROVIDERS: ADMIT Family Medicine; ATTEND Family Medicine
DX: L03.116 Cellulitis of left lower limb (principal); L97.419 Non-pressure chronic ulcer of right heel and midfoot with unspecified severity; I87.2 Venous insufficiency (chronic) (peripheral); L57.0 Actinic keratosis; Z87.891 Personal history of nicotine dependence; Z85.6 Personal history of leukemia; Z90.49 Acquired absence of other specified parts of digestive tract; Z86.718 Personal history of other venous thrombosis and embolism; Z88.1 Allergy status to other antibiotic agents; Z91.041 Radiographic dye allergy status
CPT/HCPCS: 36415; 80053; 80202; 82565; 83605; 83735; 85007; 85025; 87040; 93971; 96365; 96366; 96368; 99285; J1650; J2543; J3370; J7040; J7050; G0378; J7030

== ENCOUNTER → 2021-03-29 | Outpatient (CLI) | payer MEDICARE, BC ==
[2021-03-16 12:34] VITALS: BP 117/58
[~2021-03-29] MED LIST changes: +ACET325T21 PO
--- NOTE | 2021-03-30 08:53 | RAD ---
EXAM: AP and lateral views left tibia/fibula DATE: 03/29/2021 2:45 PM INDICATION: Reason: LEFT LEG NON-HEALING ULCER MEDIAL LOWER LEG. COMPARE TO 01/24/2019 EXAM. / Spl. I nstructions: / History: . COMPARISON: No Prior FINDINGS: Moderate soft tissue swelling about the left tibia/fibula. Erosive/destructive change is seen at the medial and posterior proximal-mid shaft tibial cortex suspicious for osteomyelitis and can be further assessed by MRI. Vascular calcifications are seen. IMPRESSION: 1. Erosive change of the proximal mid shaft tibia suspicious for osteomyelitis. Diffuse associated s oft tissue swelling. Electronically signed by: Ganesh Solorzano MD (03/30/2021 8:50 AM) [id number]
== END ==
LOC: RAD 14:26
PROVIDERS: ATTEND Preventive Medicine Undersea and Hyperbaric Medicine
DX: L97.829 Non-pressure chronic ulcer of other part of left lower leg with unspecified severity (principal)
CPT/HCPCS: 73590

== ENCOUNTER → 2021-04-08 | Outpatient (CLI) | payer MEDICARE, BC ==
[2021-03-16 12:34] VITALS: BP 117/58
[~2021-04-08] MED LIST changes: +GADOTERATE 7.5 MMOL/15ML VIAL. IVP ONE
--- NOTE | 2021-04-08 14:07 | RAD ---
STUDY: MRI left lower extremity with and without contrast INDICATION: Medial lower leg nonhealing wound. COMPARISON: Radiographs from 03/29/2021 TECHNIQUE: Multiplanar MR imaging of the left lower leg performed both prior to and after the intrave nous administration of 15 cc Clariscan. FINDINGS: The medial cortical irregularity seen by radiography at the middle third of the tibial diaphysis appe ars to correspond to a prominent vascular groove on this exam seen on image 13 series 9 approximately 25 cm cephalad to the tibial plafond. No surrounding cortical or medullary edema/enhancement to sugg est osteomyelitis as the cause. A few additional foci of low attenuation projecting along the medulla ry canal on the radiographic comparison are also related to vascular channels. Collectively there are no signal changes of osteomyelitis throughout the imaged lower leg. Though not fully evaluated, no a dvanced arthrosis at the ankle. Edematous subcutaneous tissues to varying extent throughout the left lower leg down to the ankle. No deep ulceration or sinus tract is apparent. No discrete sinus tract or fluid collection. It appears a s if some of the semitendinosus edema is enhancing which could indicate cellulitis but this may also be artifactual from incomplete fat suppression. Edema-like signal of the musculature on a background of fatty infiltration. IMPRESSION: 1. No signal changes of osteomyelitis throughout the imaged portion of the left lower leg. The cortic al and intramedullary lucencies along the tibial shaft seen by radiography on 03/29/2021 appear to simón espond to prominent vascular channels. 2. Nonspecific edematous subcutaneous tissues to varying extent favored predominantly bland edema tho ugh a component of cellulitis is difficult to exclude. Differentiation would be better made clinicall y. No deep ulceration, sinus tract or abscess. Electronically signed by: SHANNON GLASS MD (04/08/2021 2:05 PM) [id number]
== END ==
LOC: MRI 11:04
PROVIDERS: ATTEND Preventive Medicine Undersea and Hyperbaric Medicine
DX: L97.929 Non-pressure chronic ulcer of unspecified part of left lower leg with unspecified severity (principal)
CPT/HCPCS: 73720; A9575

== ENCOUNTER → 2021-04-13 | Outpatient (CLI) | payer MEDICARE, BC ==
[2021-03-16 12:34] VITALS: BP 117/58
[~2021-04-13] MED LIST changes: -GADOTERATE 7.5 MMOL/15ML VIAL. IVP ONE; +REGADENOSON 0.4 MG/5 ML DISP.SYRIN. IV ONE
--- NOTE | 2021-04-13 13:55 | RAD ---
MR#: [id number] Date of Study: 04/13/2021 Ordering Physician: MARYURI EVANS, Referring Physician: KHADIJAH ARIAS Tech: ALIVIA Velarde ARRT (R) (N) APPROVED REPORT Test Type: Pharmacological Stress Nurse/Tech: Kristopher Draper RN Test Indications: chest pain Cardiac History: No known cardiac Medications: See Electronic Medical Record Medical History: See Electronic Medical Record Resting ECG: SR Resting Heart Rate: 72 bpm Resting Blood Pressure: 120/70mmHg Pretest Chest Pain: None Nurse/Tech Notes Lungs CTA, S1S2 with murmur noted on auscultation Consent: The procedure was explained to the patient in lay terms. Informed consent was witnessed. Sanket eout was entered into [employer]. History and Stress Test performed by ALIVIA Velarde, VIRGEN (R) (N) Pharm. Details Pharmacologic stress testing was performed using 0.4mg per 5ml of regadenoson given intravenously ove r 7-10 seconds. Stress Symptoms No chest pain or symptoms. POST EXERCISE Reason for Termination: Infusion complete Max HR: 99 bpm Max Blood Pressure: 128/66mmHg Blood Pressure response to exercise: Normal blood pressure response during stress. Heart Rate response to exercise: normal response Chest Pain: No. Arrhythmia: No. PAC ST Change: No. INTERPRETATION Stress EKG Conclusion: Baseline EKG showed sinus rhythm. No ischemic changes at peak stress. No arr hythmias. Imaging Protocol IMAGE PROTOCOL: Rest Tc-99m/stress Tc-99m 1 day Rest: Stress: Viability: Radiopharm.Tc99m NkmuplziuUz54p Sestamibi Rhla01mLs 30.8mCi Img Date 04/13/2021 04/13/2021 Inj-Img Gggx97npk. 60min. Rest Admin Site:IV - Right ForearmAdministrator:ALIVIA Velarde ARRT (R)(N) Stress Admin Site: IV - Right ForearmAdministrator: RT Lisette (R)(N) STRESS DATA End Diast. Vol.168.0mlAv. Heart Rate73.0bpm End Syst. Vol.70.0mlCO Index BSA0.0L/min Myocardial Vkkg982.0gEject. Iwciulmh25.0% Stress Rates Pk. Fill Rate2.19EDV/secLVtime Pk. Fill 91.73msec Pk. Empty Rate3.89ESV/secLVtime Pk. Eiswb230.43msec 1/3 Pk. Fill1.55EDV/sec Stress Scores Regional WT1.00Summed WT3.00 Regional WM0.00Summed WM5.00 Study quality was good. Left Ventricular size was Normal at Rest and Stress. Lung uptake was . Left Ventricular ejection fraction is 61%. The rest and stress images show normal perfusion, normal contraction and thickening. LV Perf. Quant 17 Seg. SSS4.00 17 Seg. SRS6.00 17 Seg. SDS1.00 Stress Defect Extent (% LAD)0.00Rest Defect Extent (% LAD)19.40Rev. Defect Extent (% LAD)0.00 Stress Defect Extent (% LCX) 0.00Rest Defect Extent (% LCX)0.00Rev. Defect Extent (% LCX)0.00 Stress Defect Extent (% RCA)4.40Rest Defect Extent (% RCA)6.70Rev. Defect Extent (% RCA)0.00 Stress Defect Extent (% ZANE)0.90Rest Defect Extent (% ZANE)8.30Rev. Defect Extent (% ZANE)0.00 Conclusion 1. Regadenoson cardioisotope stress test did not show any evidence of ischemia or infarct. 2. Normal left ventricular systolic function with ejection fraction calculated at 61%. 3. Low risk for cardiac events. Signed by : Maryuri Evans, Electronically Approved : 04/13/2021 13:55:17
--- NOTE | 2021-04-13 13:58 | CARD ---
MR#: [id number] Date of Study: 04/13/2021 Ordering Physician: MARYURI HARO, Referring Physician: Kristina ARIAS: [facility] APPROVED REPORT EXAM: Two-dimensional and M-mode echocardiogram with Doppler and color Doppler. Other Information Quality : GoodHR: 68bpm Rhythm : NSR INDICATION Chest Pain 2D DIMENSIONS Left Atrium(2D)4.1 (1.6-4.0cm)IVSd0.9 (0.7-1.1cm) Aortic Root(2D)3.6 (2.0-3.7cm)LVDd4.6 (3.9-5.9cm) LVOT Diameter2.2 (1.8-2.4cm)PWd1.1 (0.7-1.1cm) LVDs3.9 (2.5-4.0cm)FS (%) 15.6 % SV32.8 ml Aortic Valve AoV Peak Aaron.153.4cm/Vishal Peak GR.9.4mmHg LVOT Peak Aaron.72.6cm/sAVA (VMAX)1.73cm2 Mitral Valve MV E Abcmicbq17.2cm/sMV DECEL [id number] MV A Ksxmqgvk99.2cm/sE/A Ratio1.0 Tricuspid Valve TR P. Wdzpkhzb861pl/sRAP YIVEEQTV3egFx TR Peak Gr.84gkLvKYYO24kzIw Pulmonary Vein S1 Gqcvjdva21.8cm/sD2 Zudxsnjc48.7cm/s PVa urosxjqu992nuih LEFT VENTRICLE The left ventricle is normal size. There is normal left ventricular wall thickness. The left ventricu lar systolic function is normal. The ejection fraction is 50-55%. There is normal LV segmental wall m otion. Transmitral Doppler flow pattern is Grade II-pseudonormal filling dynamics. RIGHT VENTRICLE The right ventricle is normal size. There is normal right ventricular wall thickness. The right ventr icular systolic function is normal. ATRIA The left atrium is mildly dilated. The right atrium is mildly dilated. The interatrial septum is inta ct with no evidence for an atrial septal defect or patent foramen ovale as noted on 2-D or Doppler im aging. AORTIC VALVE The aortic valve is trileaflet. Calcified nodule noted on non coronary cusp. Doppler and Color Flow r evealed no significant aortic regurgitation. There is no significant aortic valvular stenosis. MITRAL VALVE Mitral annular calcification is mild. There is no evidence of mitral valve prolapse. There is no mitr al valve stenosis. Doppler and Color-flow revealed moderate eccentric mitral regurgitation. TRICUSPID VALVE The tricuspid valve is normal in structure and function. Doppler and Color Flow revealed mild tricusp id regurgitation. There is no tricuspid valve stenosis. PULMONIC VALVE The pulmonary valve is normal in structure and function. Doppler and Color Flow revealed no pulmonic valvular regurgitation. GREAT VESSELS The aortic root is normal in size. The ascending aorta is normal in size. PERICARDIAL EFFUSION There is no pleural effusion. There is no evidence of significant pericardial effusion. Critical Notification Critical Value: No <Conclusion> The left ventricular systolic function is normal. The ejection fraction is 50-55%. Transmitral Doppler flow pattern is Grade II-pseudonormal filling dynamics. Moderate eccentric mitral regurgitation. Mild tricuspid regurgitation. There is no evidence of significant pericardial effusion. Signed by : Maryuri Haro, Electronically Approved : 04/13/2021 13:58:00
--- NOTE | 2021-04-13 15:08 | RAD ---
EXAM: Lower extremity arterial Doppler sonogram with ankle-brachial indices (TREVOR); left lower extremi ty venous reflux sonogram. HISTORY: Nonhealing wound. Peripheral vascular disease. TECHNIQUE: Doppler sonographic evaluation of the left lower extremity arteries was performed and bila teral pressure readings were assessed. Sonographic imaging of the left lower extremity veins was also performed. FINDINGS: Right brachial pressure: 117 mmHg Left brachial pressure: 121 mmHg Right ankle pressure (dorsalis pedis): 143 mmHg Right ankle pressure (posterior tibial): 163 mmHg Right TREVOR: 1.34 Left ankle pressure (dorsalis pedis): 174 mmHg Left ankle pressure (posterior tibial): 168 mmHg Left TREVOR: 1.43 There is partially calcified atherosclerotic plaque throughout the left lower extremity arteries. The re are biphasic and triphasic waveforms throughout the left lower extremity arteries. There is an syed vated peak systolic velocity of 400 cm/s within the distal left posterior tibial artery. This is loca margarito within the proximal to a wound at the level of the medial ankle. The left greater saphenous vein has been ablated. There is a venous extrusion utility worker along the inferior asp ect of the wound at the level of the ankle which extends to the wound and indicates with a varicose v ein at the level of the wound. This extrusion utility worker measures 9 cm up, 4.2 mm in caliber and demonstrates r eflux of 1.4 seconds. There is chronic thrombus within a 5.3 mm caliber left lesser saphenous vein. IMPRESSION: 1. Severely elevated peak systolic velocity within the distal left posterior tibial artery slightly p roximal to a soft tissue wound along the ankle, consistent with hemodynamically significant arterial stenosis. There is also a extrusion utility worker vein demonstrate reflux extending to the wound and communicating with a varicose vein at this level, described above. 2. Left greater saphenous vein ablation and chronic thrombus within the left lesser saphenous vein. 3. Upper normal right ankle-brachial index and borderline elevated left ankle-brachial index, the lat ter of which can be seen with vessel hardening in the setting of calcified atherosclerotic plaque. Electronically signed by: Shahrzad Wilkes MD (04/13/2021 3:05 PM) [id number]
== END ==
LOC: NM 09:28
PROVIDERS: ATTEND Internal Medicine Cardiovascular Disease
DX: I08.3 Combined rheumatic disorders of mitral, aortic and tricuspid valves (principal); I82.812 Embolism and thrombosis of superficial veins of left lower extremity; T14.8XXA Other injury of unspecified body region, initial encounter; L97.929 Non-pressure chronic ulcer of unspecified part of left lower leg with unspecified severity
CPT/HCPCS: 78452; 93017; 93306; 93971; A9500; J2785

== ENCOUNTER → 2021-04-13 | Outpatient (CLI) | payer MEDICARE, BC ==
[2021-03-16 12:34] VITALS: BP 117/58
[~2021-04-13] MED LIST changes: -REGADENOSON 0.4 MG/5 ML DISP.SYRIN. IV ONE
--- NOTE | 2021-04-13 15:08 | RAD ---
EXAM: Lower extremity arterial Doppler sonogram with ankle-brachial indices (TREVOR); left lower extremi ty venous reflux sonogram. HISTORY: Nonhealing wound. Peripheral vascular disease. TECHNIQUE: Doppler sonographic evaluation of the left lower extremity arteries was performed and bila teral pressure readings were assessed. Sonographic imaging of the left lower extremity veins was also performed. FINDINGS: Right brachial pressure: 117 mmHg Left brachial pressure: 121 mmHg Right ankle pressure (dorsalis pedis): 143 mmHg Right ankle pressure (posterior tibial): 163 mmHg Right TREVOR: 1.34 Left ankle pressure (dorsalis pedis): 174 mmHg Left ankle pressure (posterior tibial): 168 mmHg Left TREVOR: 1.43 There is partially calcified atherosclerotic plaque throughout the left lower extremity arteries. The re are biphasic and triphasic waveforms throughout the left lower extremity arteries. There is an syed vated peak systolic velocity of 400 cm/s within the distal left posterior tibial artery. This is loca margarito within the proximal to a wound at the level of the medial ankle. The left greater saphenous vein has been ablated. There is a venous strategic debriefing officer along the inferior asp ect of the wound at the level of the ankle which extends to the wound and indicates with a varicose v ein at the level of the wound. This strategic debriefing officer measures 9 cm up, 4.2 mm in caliber and demonstrates r eflux of 1.4 seconds. There is chronic thrombus within a 5.3 mm caliber left lesser saphenous vein. IMPRESSION: 1. Severely elevated peak systolic velocity within the distal left posterior tibial artery slightly p roximal to a soft tissue wound along the ankle, consistent with hemodynamically significant arterial stenosis. There is also a strategic debriefing officer vein demonstrate reflux extending to the wound and communicating with a varicose vein at this level, described above. 2. Left greater saphenous vein ablation and chronic thrombus within the left lesser saphenous vein. 3. Upper normal right ankle-brachial index and borderline elevated left ankle-brachial index, the lat ter of which can be seen with vessel hardening in the setting of calcified atherosclerotic plaque. Electronically signed by: Shahrzad Wilkes MD (04/13/2021 3:05 PM) [id number]
--- NOTE | 2021-04-13 15:08 | RAD ---
EXAM: Lower extremity arterial Doppler sonogram with ankle-brachial indices (TREVOR); left lower extremi ty venous reflux sonogram. HISTORY: Nonhealing wound. Peripheral vascular disease. TECHNIQUE: Doppler sonographic evaluation of the left lower extremity arteries was performed and bila teral pressure readings were assessed. Sonographic imaging of the left lower extremity veins was also performed. FINDINGS: Right brachial pressure: 117 mmHg Left brachial pressure: 121 mmHg Right ankle pressure (dorsalis pedis): 143 mmHg Right ankle pressure (posterior tibial): 163 mmHg Right TREVOR: 1.34 Left ankle pressure (dorsalis pedis): 174 mmHg Left ankle pressure (posterior tibial): 168 mmHg Left TREVOR: 1.43 There is partially calcified atherosclerotic plaque throughout the left lower extremity arteries. The re are biphasic and triphasic waveforms throughout the left lower extremity arteries. There is an syed vated peak systolic velocity of 400 cm/s within the distal left posterior tibial artery. This is loca margarito within the proximal to a wound at the level of the medial ankle. The left greater saphenous vein has been ablated. There is a venous photo booth operator along the inferior asp ect of the wound at the level of the ankle which extends to the wound and indicates with a varicose v ein at the level of the wound. This photo booth operator measures 9 cm up, 4.2 mm in caliber and demonstrates r eflux of 1.4 seconds. There is chronic thrombus within a 5.3 mm caliber left lesser saphenous vein. IMPRESSION: 1. Severely elevated peak systolic velocity within the distal left posterior tibial artery slightly p roximal to a soft tissue wound along the ankle, consistent with hemodynamically significant arterial stenosis. There is also a photo booth operator vein demonstrate reflux extending to the wound and communicating with a varicose vein at this level, described above. 2. Left greater saphenous vein ablation and chronic thrombus within the left lesser saphenous vein. 3. Upper normal right ankle-brachial index and borderline elevated left ankle-brachial index, the lat ter of which can be seen with vessel hardening in the setting of calcified atherosclerotic plaque. Electronically signed by: Shahrzad Wilkes MD (04/13/2021 3:05 PM) [id number]
== END ==
LOC: US 09:30
PROVIDERS: ATTEND Preventive Medicine Undersea and Hyperbaric Medicine
DX: I82.812 Embolism and thrombosis of superficial veins of left lower extremity (principal); L97.529 Non-pressure chronic ulcer of other part of left foot with unspecified severity; I70.202 Unspecified atherosclerosis of native arteries of extremities, left leg
CPT/HCPCS: 93922; 93926

== ENCOUNTER → 2021-04-27 | Outpatient (CLI) | payer MEDICARE, BC ==
[2021-04-27 12:09] LABS: BASO % 0 % (0-3); EOS # 0.2 x10^3/uL (0.0-0.7); EOS % 2 % (0-3); HEMOGLOBIN 12.3 g/dL (13.0-17.5); LYMPH # 9.2 x10^3/uL (1.0-4.8); LYMPH % 70 % (24-48); MEAN CORPUSCULAR HEMOGLOBIN 30 pg (25-35); MEAN CORPUSCULAR HGB CONC 33 g/dL (31-37); MEAN CORPUSCULAR VOLUME 91 fL (79-100); MONO # 0.8 x10^3/uL (0.0-1.1); MONO % 6 % (0-9); NEUT % 23 % (31-73); PLATELET COUNT 126 x10^3/uL (140-400); RED BLOOD COUNT 4.08 x10^6/uL (4.30-5.70); RED CELL DISTRIBUTION WIDTH 14.3 % (11.5-14.5); WHITE BLOOD COUNT 13.2 x10^3/uL (4.0-11.0)
[2021-04-27 12:22] LABS: CREATININE 1.1 mg/dL (0.7-1.3); GFR 63.2
[2021-04-27 12:31] LABS: ALBUMIN 3.9 g/dL (3.4-5.0); ALBUMIN/GLOBULIN RATIO 1.4 (1.0-1.7); TOTAL BILIRUBIN 0.6 mg/dL (0.2-1.0); TOTAL PROTEIN 6.6 g/dL (6.4-8.2)
[2021-04-27 13:21] LABS: % BASOS 1 % (0-3); % LYMPHS 61 % (24-48); % MONOS 2 % (0-10); % SEGS 36 % (35-66); PLT ESTIMATE DECREASED (ADEQUATE)
[2021-04-27 13:22] LABS: SMUDGE CELLS PRESENT
== END ==
LOC: ONCLAB 08:00
PROVIDERS: ATTEND Internal Medicine Hematology & Oncology
DX: C91.11 Chronic lymphocytic leukemia of B-cell type in remission (principal); E03.9 Hypothyroidism, unspecified
CPT/HCPCS: 36415; 80053; 84443; 85007; 85025

== ENCOUNTER → 2021-06-22 | Outpatient (CLI) | payer MEDICARE, BC ==
[~2021-06-22] MED LIST changes: +LIDOCAINE 1%/EPI 1:100,000 25 ML, SODIUM BICARBONATE VIAL 2.5 MEQ in IV NORMAL SALINE 5... SQ STA
--- NOTE | 2021-06-22 15:08 | CARD ---
MR#: [id number] Date of Study: 06/22/2021 Ordering Physician: MARYURI HARO, Referring Physician: MARYURI HARO, Tech: Roslyn Logan RVT; Gamaliel Hdez CDT APPROVED REPORT Patient StatusOUT-PATIENT Deputy United [place] Marshal: Roslyn Logan RVT; Gamaliel Hdez CDT Procedure(s) performed: Endovenous radiofrequency ablation of an incompetent Left Ankle Head Turbine Operator at Non healing Wound. HISTORY The patient is a 89 year-old male with a history of : Non healing wound Left Medial Ankle. 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 PROCEDURE NARRATIVE The patient was transferred to the procedure suite and the insufficient paramedic instructor veins were mapped by ultrasound and diagrammed on the underlying skin The patient was then positioned supine on the pr ocedure table. The entire limb was sterilely prepared and the lower extremity and treatment table we re sterilely draped. The RF stylet catheter was placed on the sterile field, flushed and wiped down , prepared, and connected by a sterile cable. The patient was placed in reverse-Trendelenburg position and local anesthesia was instilled in the sk in overlying the access site. A skin incision was made overlying the identified and mapped Perforato r vein entry site. The vein was punctured through the incision and using ultrasound guidance the RF stylet catheter was advanced into the Head Turbine Operator vein. After the RF probe position was verified by t ultrasound, tumescent anesthesia was infiltrated, under ultrasound guidance, precisely into the pe rivenuus compartment a "halo" of fluid was noted around the vein. The patient was then placed in Trendelenburg position. After the RF probe position was again confirm ed with ultrasound imaging, moderate external compression was applied over the RF heating element, an d RF energy was applied. The probe was withdrawn while treating the incompetent paramedic instructor vein in a ll four quadrants each quadrant being trreated for 30 seconds. Repeat ultrasound of the Head Turbine Operator v ein was performed confirming successful treatment. The catheter and sheath were withdrawn and hemost asis established with direct pressure. Total treatment time 4 mins 50 seconds. After assuring hemostasis, the skin incisions over paramedic instructor veins were closed with a bandage and an external compression dressing was applied from the level of the foot to the most proximal level of t he thigh. Patient tolerated the procedure well. There were no immediate complications. Signed by : Maryuri Haro, Electronically Approved : 06/22/2021 15:08:01
== END | disposition home or self-care (01) ==
LOC: VNUS 10:58
PROVIDERS: ATTEND Internal Medicine Cardiovascular Disease
DX: I87.2 Venous insufficiency (chronic) (peripheral) (principal); I10 Essential (primary) hypertension; K21.9 Gastro-esophageal reflux disease without esophagitis; M19.90 Unspecified osteoarthritis, unspecified site; I87.322 Chronic venous hypertension (idiopathic) with inflammation of left lower extremity; Z87.891 Personal history of nicotine dependence; Z79.899 Other long term (current) drug therapy; Z98.890 Other specified postprocedural states; Z88.1 Allergy status to other antibiotic agents; Z91.041 Radiographic dye allergy status
CPT/HCPCS: 36475; J3490; J7040

== ENCOUNTER 2021-09-07 08:56 | Outpatient (CLI) | payer MEDICARE, BC ==
[2021-09-07] VITALS (11 sets, daily range): BP systolic 133–157; BP diastolic 68–79
[~2021-09-07] VITALS: Ht 195.6 cm; Wt 81.0 kg
[~2021-09-07 08:56] MED LIST changes: -LIDOCAINE 1%/EPI 1:100,000 25 ML, SODIUM BICARBONATE VIAL 2.5 MEQ in IV NORMAL SALINE 5... SQ STA; +POTA-121 PO; -POTA20TA4 PO
[2021-09-07 09:49] LABS: HEMATOCRIT 39.1 % (39.0-53.0); HEMOGLOBIN 13.1 g/dL (13.0-17.5); RED BLOOD COUNT 4.42 x10^6/uL (4.30-5.70); RED CELL DISTRIBUTION WIDTH 14.8 % (11.5-14.5); WHITE BLOOD COUNT 16.8 x10^3/uL (4.0-11.0)
[2021-09-07 09:58] LABS: PROTHROMBIN TIME PATIENT 13.1 SEC (11.7-14.0)
[2021-09-07 10:13] LABS: CREATININE 1.1 mg/dL (0.7-1.3); GFR 63.2; POTASSIUM 3.9 mmol/L (3.5-5.1)
[2021-09-07] MEDS ORDERED: LIDOCAINE 1% Multi-Dose 20 ML VIAL. ONE (10:52)
[2021-09-07] MEDS ORDERED: MIDAZOLAM HCL/PF 2 MG/2 ML VIAL. ONE (11:35)
[2021-09-07] MEDS ORDERED: HEPARIN for IV BOLUS 10,000 UNIT/10 ML VIAL. ONE (11:35)
[2021-09-07] MEDS ORDERED: fentaNYL PF VIAL 100 MCG/2 ML VIAL ONE (11:35)
[2021-09-07] MEDS ORDERED: diphenhydrAMINE 50 MG/ML VIAL ONE (11:44)
[2021-09-07] MEDS ORDERED: IODIXANOL 320 MG/ML 100 ML VIAL. IART ONE (12:00)
[2021-09-07] MEDS ORDERED: diphenhydrAMINE 50 MG/ML VIAL IVP ONE (12:00)
[2021-09-07] MEDS ORDERED: MIDAZOLAM HCL/PF 2 MG/2 ML VIAL. IV ONE (12:00)
[2021-09-07] MEDS ORDERED: LIDOCAINE 1% Multi-Dose 20 ML VIAL. INJ ONE (12:00)
[2021-09-07] MEDS ORDERED: fentaNYL PF VIAL 100 MCG/2 ML VIAL IV ONE (12:00)
[2021-09-07] MEDS ORDERED: CONTRAST GIVEN. MC PRN (12:15)
--- NOTE | 2021-09-07 12:39 | PDOC ---
MODERATE SEDATION ASSESSMENT RISKS/ALTERNATIVES Risks/Alternatives Risks and alternatives of this type of sedation and procedure discussed with: RISK/ALTERNATIVES: Patient H & P ON CHART H & P H & P on chart and reviewed for co-morbid conditions and appropriate labs. H&P ON CHART: Yes STATUS PREG STATUS ASSESSED: N/A MEDS/ALLERGIES REVIEWED Meds/Allergies Reviewed Medications and Allergies including time and route of recently administered narcotics and sedatives. MEDS/ALLERGIES REVIEWED: Yes ASA RATING ASA RATING: III AIRWAY ASSESSMENT Airway Assessment Airway patency, oral function limitations, presence of caps, crowns, dentures, partials, and ability to extend neck assessed. AIRWAY ASSESSMENT: Yes MALLAMPATI SCORE MALLAMPATI SCORE: II PRE-SEDATION ASSESSMENT PRE-SEDATION ASSESSMENT: Yes MARYURI EVANS MD Sep 07, 2021 12:39
[2021-09-07] MEDS ORDERED: IV 1/2 NORMAL SALINE 1,000 ML IV SCH (13:00)
--- NOTE | 2021-09-07 13:09 | CARD ---
MR#: [id number] Date of Study: 09/07/2021 Ordering Physician: MARYURI EVANS, Referring Physician: MARYURI EVANS Tech: Gayla Lopez RT(R) APPROVED REPORT Patient StatusOUT-PATIENT Delivery Rep: Gayla Lopez RT(R) Procedure(s) performed: Aortogram with bilateral lower extremity runoff MODERATE SEDATION TIME: 42 MINUTES FLUORO TIME: 3.7 MIN DOSE: 28.8 GYCM2 CONTRAST: 84CC VISI INDICATION FOR PROCEDURE The indication(s) include : Nonhealing wound left lower extremity with abnormal arterial duplex scan showing peripheral artery disease. CASE TECHNIQUE After explaining the risks, benefits, and alternative options, informed consent was obtained from the patient. IV conscious sedation was used throughout procedure with appropriate monitoring and was per formed in the presence of a registered nurse who was an independent trained observer other than the lena hicks performing the procedure. During this case, Fluoroscopy and low osmolar contrast were used f or imaging. Specimen(s) Removed: No Estimated Blood loss: 15 cc's. PROCEDURE NARRATIVE After explaining the risk, benefits and alternative options, informed consent was obtained from francisco fraga. Patient was brought to the cardiac Enrichment Specialist and his right groin was prepped and draped in the us ual fashion. 10 cc of 2% lidocaine was infiltrated into the skin and subcutaneous tissues for local anesthesia. Arterial access was obtained in the right common femoral artery and a 5 Uzbek sheath wa s inserted. 5 Uzbek Omni Flush catheter was positioned in the distal descending aorta and aortoilia c angiography was performed. The catheter was advanced over the aortic torres and with the tip posit ioned in the left common femoral artery, selective left lower extremity angiography was performed. C ontrast injections were performed through the sheath in the right groin for selective right lower ext remity angiography. Patient tolerated the procedure well. Hemostasis was achieved using Mynx closur e device. There were no immediate complications. FINDINGS 1. No significant stenosis involving the distal descending aorta 2. No significant stenosis involving bilateral common and external iliac arteries 3. No significant stenosis involving bilateral common femoral, deep femoral and superficial femoral arteries. 4. No significant stenosis involving bilateral popliteal arteries. 5. There is good two vessel runoff below the knee bilaterally. The left posterior tibial artery bisi wed only 40% stenosis in the very distal segment. The peroneal artery was patent. The left anterior tibial artery showed severe diffuse disease in the mid to distal segment. In the right lower extrem ity, the right posterior tibial and peroneal arteries were patent without any significant stenosis. The right anterior tibial artery showed chronic total occlusion in the mid segment. Conclusion Below the knee peripheral artery disease as described above without any major vascular stenosis needi ng intervention Recommendations The left posterior tibial artery that supplies the Angiosome with the nonhealing wound is patent. Th e left anterior tibial artery showed severe diffuse disease distally but patient does not have any wo unds in this angiosome. Recommend medical management with continued treatments at the wound care cli yamile. Signed by : Maryuri Evans, Electronically Approved : 09/07/2021 13:09:12
--- NOTE | 2021-09-07 15:02 | NUR ---
Discharge Note: [facility] Discharge instructions and discharge home medications reviewed with Patient and a copy given. All questions have been answered and understanding verbalized. The following instructions and handouts were given: groin site care,mynx closure,adult moderate sedation Discontinued lines and drains: Peripheral IV intact. Patient discharged to Home or Self Care withSpousevia Wheelchair
== END 2021-09-07 15:05 | disposition home or self-care (01) ==
LOC: CCL 08:56
PROVIDERS: ATTEND Internal Medicine Cardiovascular Disease
DX: I73.9 Peripheral vascular disease, unspecified (principal); I10 Essential (primary) hypertension; K21.9 Gastro-esophageal reflux disease without esophagitis; M19.90 Unspecified osteoarthritis, unspecified site; Z79.899 Other long term (current) drug therapy; Z98.890 Other specified postprocedural states; Z88.1 Allergy status to other antibiotic agents; Z88.8 Allergy status to other drugs, medicaments and biological substances
CPT/HCPCS: 36245; 36415; 75625; 75716; 80048; 85027; 85610; 99152; 99153; C1760; C1769; C1894; G0269; J1200; J1644; J2250; J3010; J3490; Q9967

== ENCOUNTER → 2021-09-14 | Outpatient (CLI) | payer MEDICARE, BC ==
[2021-09-07 14:30] VITALS: BP 154/75
[2021-09-14 14:05] LABS: BASO % 0 % (0-3); EOS # 0.8 x10^3/uL (0.0-0.7); EOS % 5 % (0-3); HEMOGLOBIN 11.6 g/dL (13.0-17.5); LYMPH % 62 % (24-48); MEAN CORPUSCULAR HEMOGLOBIN 30 pg (25-35); MEAN CORPUSCULAR HGB CONC 33 g/dL (31-37); MEAN CORPUSCULAR VOLUME 90 fL (79-100); MONO # 0.9 x10^3/uL (0.0-1.1); MONO % 7 % (0-9); NEUT # 3.9 x10^3/uL (1.8-7.7); NEUT % 27 % (31-73); PLATELET COUNT 136 x10^3/uL (140-400); RED BLOOD COUNT 3.89 x10^6/uL (4.30-5.70); RED CELL DISTRIBUTION WIDTH 15.1 % (11.5-14.5); WHITE BLOOD COUNT 14.5 x10^3/uL (4.0-11.0)
[2021-09-14 14:22] LABS: CALCIUM 8.8 mg/dL (8.5-10.1); CREATININE 1.1 mg/dL (0.7-1.3); GFR 63.2; POTASSIUM 4.3 mmol/L (3.5-5.1)
[2021-09-14 14:26] LABS: ALBUMIN 3.2 g/dL (3.4-5.0); ALBUMIN/GLOBULIN RATIO 1.1 (1.0-1.7); TOTAL BILIRUBIN 0.4 mg/dL (0.2-1.0); TOTAL PROTEIN 6.1 g/dL (6.4-8.2)
[2021-09-14 14:39] LABS: % EOS 8 % (0-5); % LYMPHS 60 % (24-48); % MONOS 5 % (0-10); % SEGS 27 % (35-66)
[2021-09-14 14:40] LABS: PLT ESTIMATE ADEQUATE (ADEQUATE)
[2021-09-14 14:41] LABS: SMUDGE CELLS PRESENT
== END ==
LOC: ONCLAB 13:37
PROVIDERS: ATTEND Internal Medicine Hematology & Oncology
DX: C91.11 Chronic lymphocytic leukemia of B-cell type in remission (principal); E07.9 Disorder of thyroid, unspecified
CPT/HCPCS: 36415; 80053; 84443; 85007; 85025

== ENCOUNTER → 2022-01-19 | Outpatient (CLI) | payer MEDICARE, BC ==
[2021-09-07 14:30] VITALS: BP 154/75
[2022-01-19 14:15] LABS: BASO % 0 % (0-3); EOS # 0.2 x10^3/uL (0.0-0.7); EOS % 2 % (0-3); HEMATOCRIT 38.2 % (39.0-53.0); HEMOGLOBIN 12.8 g/dL (13.0-17.5); LYMPH % 71 % (24-48); MEAN CORPUSCULAR HEMOGLOBIN 31 pg (25-35); MEAN CORPUSCULAR HGB CONC 34 g/dL (31-37); MEAN CORPUSCULAR VOLUME 91 fL (79-100); MONO # 0.6 x10^3/uL (0.0-1.1); MONO % 4 % (0-9); NEUT # 3.2 x10^3/uL (1.8-7.7); NEUT % 23 % (31-73); PLATELET COUNT 112 x10^3/uL (140-400); RED BLOOD COUNT 4.18 x10^6/uL (4.30-5.70); RED CELL DISTRIBUTION WIDTH 14.7 % (11.5-14.5)
[2022-01-19 14:29] LABS: CALCIUM 8.9 mg/dL (8.5-10.1); GFR 70.4; POTASSIUM 4.4 mmol/L (3.5-5.1)
[2022-01-19 14:38] LABS: ALBUMIN 3.9 g/dL (3.4-5.0); ALBUMIN/GLOBULIN RATIO 1.3 (1.0-1.7); TOTAL BILIRUBIN 0.6 mg/dL (0.2-1.0); TOTAL PROTEIN 6.8 g/dL (6.4-8.2)
[2022-01-19 15:12] LABS: % ATYL 8 % (0-0); % EOS 4 % (0-5); % LYMPHS 60 % (24-48); % MONOS 2 % (0-10); % SEGS 26 % (35-66); PLT ESTIMATE DECREASED (ADEQUATE)
== END ==
LOC: ONCLAB 13:53
PROVIDERS: ATTEND Internal Medicine Hematology & Oncology
DX: C91.11 Chronic lymphocytic leukemia of B-cell type in remission (principal)
CPT/HCPCS: 36415; 80053; 85007; 85025

== ENCOUNTER 2022-03-09 00:24 | Inpatient (IN) | payer MEDICARE, BC ==
[2022-03-09] VITALS (11 sets, daily range): BP systolic 91–138; BP diastolic 47–74
[~2022-03-09] VITALS: Ht 195.6 cm; Wt 77.7 kg
[2022-03-09 01:50] LABS: BASO % 1 % (0-3); EOS % 1 % (0-3); LYMPH # 3.8 x10^3/uL (1.0-4.8); LYMPH % 54 % (24-48); MEAN CORPUSCULAR HEMOGLOBIN 31 pg (25-35); MEAN CORPUSCULAR HGB CONC 34 g/dL (31-37); MEAN CORPUSCULAR VOLUME 89 fL (79-100); MONO # 0.5 x10^3/uL (0.0-1.1); MONO % 7 % (0-9); NEUT # 2.7 x10^3/uL (1.8-7.7); NEUT % 38 % (31-73); PLATELET COUNT 87 x10^3/uL (140-400); RED BLOOD COUNT 3.58 x10^6/uL (4.30-5.70); WHITE BLOOD COUNT 7.1 x10^3/uL (4.0-11.0)
--- NOTE | 2022-03-09 01:55 | RAD ---
EXAM: AP View of the chest DATE: 03/09/2022 1:34 AM INDICATION: Reason: hip fx / Spl. Instructions: / History: COMPARISON: No Prior FINDINGS: The heart is not enlarged. Aortic calcifications are seen. Mild patchy opacities left perihilar region and right lung base. No pleural effusion or pneumothorax. IMPRESSION: Mild patchy opacities left perihilar region and right lung base, likely atelectasis. Electronically signed by: Ganesh Solorzano MD (03/09/2022 1:53 AM) MISTY
--- NOTE | 2022-03-09 01:57 | RAD ---
EXAM: 1. AP pelvis, AP and lateral views left hip 2. AP and lateral views left femur 3. AP and lateral views left knee DATE: 03/09/2022 1:34 AM INDICATION: Reason: pain, fall / Spl. Instructions: / History: COMPARISON: No Prior FINDINGS/ IMPRESSION:: 1. Subcapital left femoral neck fracture in varus angulation, mild apex anterior. 2. No evidence for distal left femoral or knee fracture. 3. Decreased bone density. Vascular calcifications are seen. Electronically signed by: Ganesh Solorzano MD (03/09/2022 1:55 AM) MISTY
--- NOTE | 2022-03-09 01:57 | PHYS DOC ---
Past Medical History Past Medical History: DVT, Other Additional Past Medical Histor: CLL, ingunal hernia Past Surgical History: No Surgical History Additional Past Surgical Histo: Hernia repair,ARTERIOGRAM Smoking Status: Never Smoker Alcohol Use: None Drug Use: None Adult General Chief Complaint Chief Complaint: MECHANICAL FALL HPI HPI 89-year-old gentleman with a history of CLL, community dwelling and community ambulator, presents for evaluation of a ground-level trip and fall with a landing on his left hip. Not in any blood thinners. Firmly denies hitting head or neck or any other part of his body during the episode. Endorses discomfort only to his left hip. Has not been able to ambulate due to discomfort. Vital signs are appropriate here. Patient is alert and oriented x4 and in no distress. Review of Systems Review of Systems A 12 point review of systems was completed and was negative except where noted in HPI above. Allergies Allergies Allergies Coded Allergies Type Severity Reaction Last Updated Verified iodixanol Allergy Severe RASH 03/09/22 Yes levofloxacin Allergy Intermediate Rash 03/09/22 Yes Physical Exam Physical Exam Elderly male appearing nontoxic and in no acute distress. Head is normocephalic and atraumatic. Neck is supple and nontender. Oropharynx is moist. Lungs are clear to auscultation at all stations. There is a normal S1 and S2 without rubs or gallops and capillary refill is appropriate, less than 2 seconds globally. Abdomen is soft, nontender and nondistended. Skin is warm and dry without cyanosis, clubbing or edema. Psychiatrically, the patient dem onstrates appropriate mood and affect and is alert. Evaluation the extremities reveals BUEs and BLEs neurovascularly intact distally with strength out of 5, sensation tact light touch in all nerve distributions, radial, DP and PT pulses 2+ and equal bilaterally, capillary refill less than 2 seconds, hands and feet warm and well-perfused. No dependent peripheral edema distally. No calf tenderness or swelling bilaterally. Homans test is negative bilaterally. Mild pitting peripheral edema to the distal bilateral lower extremities below the level of the mid shins which patient states is baseline for him. Moderate discomfort with any attempt ranging at the left hip. No discomfort with range of any other joint of the BUEs or BLEs. Current Patient Data Vital Signs Vital Signs Date Time Temp Pulse Resp B/P (MAP) Pulse Ox O2 Delivery O2 Flow Rate FiO2 03/09/22 00:25 100 20 138/82 (100) 98 Lab Values Laboratory Tests Test 03/09/22 01:46 White Blood Count 7.1 x10^3/uL (4.0-11.0) Red Blood Count 3.58 x10^6/uL (4.30-5.70) L Hemoglobin 11.0 g/dL (13.0-17.5) L Hematocrit 32.0 % (39.0-53.0) L Mean Corpuscular Volume 89 fL (79-100) Mean Corpuscular Hemoglobin 31 pg (25-35) Mean Corpuscular Hemoglobin Concent 34 g/dL (31-37) Red Cell Distribution Width 14.0 % (11.5-14.5) Platelet Count 87 x10^3/uL (140-400) L Neutrophils (%) (Auto) 38 % (31-73) Lymphocytes (%) (Auto) 54 % (24-48) H Monocytes (%) (Auto) 7 % (0-9) Eosinophils (%) (Auto) 1 % (0-3) Basophils (%) (Auto) 1 % (0-3) Neutrophils # (Auto) 2.7 x10^3/uL (1.8-7.7) Lymphocytes # (Auto) 3.8 x10^3/uL (1.0-4.8) Monocytes # (Auto) 0.5 x10^3/uL (0.0-1.1) Eosinophils # (Auto) 0.0 x10^3/uL (0.0-0.7) Basophils # (Auto) 0.0 x10^3/uL (0.0-0.2) Platelet Estimate Pending Sodium Level 137 mmol/L (136-145) Potassium Level 4.1 mmol/L (3.5-5.1) Chloride Level 102 mmol/L (98-107) Carbon Dioxide Level 28 mmol/L (21-32) Anion Gap 7 (6-14) Blood Urea Nitrogen 28 mg/dL (8-26) H Creatinine 1.2 mg/dL (0.7-1.3) Estimated GFR (Cockcroft-Gault) 57.0 BUN/Creatinine Ratio 23 (6-20) H Glucose Level 110 mg/dL (70-99) H Calcium Level 9.3 mg/dL (8.5-10.1) Total Bilirubin Pending Aspartate Amino Transferase (AST) Pending Alanine Aminotransferase (ALT) Pending Alkaline Phosphatase Pending Total Protein Pending Albumin Pending Albumin/Globulin Ratio Pending Laboratory Tests 03/09/22 01:46 Laboratory Tests 03/09/22 01:46 EKG EKG [] Radiology/Procedures Radiology/Procedures XRs of LLE: Femoral neck fracture. EP interpretation, formal radiology interpretation is to follow. Course & Med Decision Making Course & Med Decision Making Patient with left femoral neck fracture. Resting comfortably, tells me he does not want any pain medicine right now. Will bring in for further care to include orthopedic consultation. Dr. Peterson graciously accepts. Dragon Disclaimer Dragon Disclaimer This electronic medical record was generated, in whole or in part, using a voice recognition dictation system. Departure Departure Impression: Primary Impression: Fracture of femoral neck, left, closed Additional Impression: Fall from slip, trip, or stumble Disposition: 09 ADMITTED INPATIENT Condition: STABLE Referrals: JOSE MARIA PETERSON MD (PCP) Problem Qualifiers Primary Impression: Fracture of femoral neck, left, closed Encounter type: initial encounter Qualified Codes: S72.002A - Fracture of unspecified part of neck of left femur, initial encounter for closed fracture Additional Impression: Fall from slip, trip, or stumble Encounter type: initial encounter Qualified Codes: W01.0XXA - Fall on same level from slipping, tripping and stumbling without subsequent striking against object, initial encounter TRISTA BERG MD Mar 09, 2022 01:57
[2022-03-09 02:03] LABS: CALCIUM 9.3 mg/dL (8.5-10.1); CREATININE 1.2 mg/dL (0.7-1.3); POTASSIUM 4.1 mmol/L (3.5-5.1)
[2022-03-09 02:09] LABS: ALBUMIN 3.5 g/dL (3.4-5.0); ALBUMIN/GLOBULIN RATIO 1.4 (1.0-1.7); TOTAL BILIRUBIN 0.7 mg/dL (0.2-1.0)
[2022-03-09] MEDS ORDERED: ONDANSETRON PF 4 MG/2 ML VIAL. IVP PRN ×2 (02:15→12:15)
[2022-03-09] MEDS ORDERED: IV DEXTROSE 5%-LACT RINGERS 1,000 ML IV ONE (02:30)
[2022-03-09 02:41] LABS: % ATYL 1 % (0-0); % BANDS 1 % (0-9); % LYMPHS 62 % (24-48); % MONOS 3 % (0-10); % SEGS 33 % (35-66); PLT ESTIMATE DECREASED (ADEQUATE); SMUDGE CELLS PRESENT
[2022-03-09] MEDS: MORPHINE SULFATE 2 MG/ML INJ. IVP PRN ×2 (02:49→09:43)
--- NOTE | 2022-03-09 04:13 | NUR ---
admitted from ED to room 400, patient alert and oriented X 4. Admission care and assessment done, Plan of care discussed with patient , patient verbalized understanding.
--- NOTE | 2022-03-09 08:42 | PDOC ---
Provider Note Date of Service: DATE: 03/09/22 TIME: 08:41 Provider Note [id number] Justifications for Admission Other Justification JOSE MARIA REYES MD Mar 09, 2022 08:42
[2022-03-09] MEDS ORDERED: HYDROmorphone 2 MG/ML INJ. IVP PRN (09:15)
[2022-03-09] MEDS ORDERED: PROCHLORPERAZINE 10 MG/2 ML VIAL. IVP PRN (09:15)
[2022-03-09] MEDS ORDERED: MORPHINE SULFATE 2 MG/ML INJ. IVP PRN ×2 (09:15→12:15)
[2022-03-09] MEDS ORDERED: fentaNYL PF VIAL 100 MCG/2 ML VIAL IVP PRN ×3 (09:15→12:15)
[2022-03-09] MEDS ORDERED: IV RINGERS,LACTATED 1000ML 1,000 ML IV SCH (09:15)
--- NOTE | 2022-03-09 09:38 | HP ---
DATE OF SERVICE: 03/09/2022 ADMIT DATE: 03/09/2022 CHIEF COMPLAINT: Fall. HISTORY OF PRESENT ILLNESS: Almost 89-year-old white male well known to me with a low-grade CLL, who is off medications, now having been under the care of Dr. Valero at . He has a history of mild venous insufficiency, otherwise, medically stable and had a fall and has a fractured left femoral neck at this point. No other recent problems. PAST HISTORY: MEDICATIONS: Listed per the chart to [facility]. He is off chemotherapy for CLL. Vaccinations up to date. SOCIAL HISTORY: , nondrinker, nonsmoker, physically active for his age. FAMILY HISTORY: Unremarkable. REVIEW OF SYSTEMS: No other new problems. OBJECTIVE: ENT: All within normal limits. NECK: No masses, nodes or bruits. LUNGS: Clear without tachypnea. CARDIOVASCULAR: Regular rate. No murmur or tachycardia. ABDOMEN: Benign and nontender. EXTREMITIES: Left leg shortened and externally rotated consistent with hip fracture. Pedal pulses are good. No new joint or skin lesions. NEUROLOGIC: Physiologic and nonfocal. ASSESSMENT: Fractured left femoral neck. Otherwise, medically stable. PLAN: Surgery. ANGELITA/HARIS/MANAN DR: ANGELITA/demetria TID: [id number]
[2022-03-09] MEDS ORDERED: fentaNYL PF VIAL 100 MCG/2 ML VIAL ONE (09:54)
[2022-03-09] MEDS ORDERED: PROPOFOL 10 MG/ML (20ML) VIAL. IV ONE (09:54)
[2022-03-09] MEDS ORDERED: DEXAMETHASONE SOD PHOS 4 MG/ML VIAL ONE (09:54)
[2022-03-09] MEDS ORDERED: LIDOCAINE 2% PF 5 ML VIAL. ONE (09:54)
[2022-03-09] MEDS ORDERED: TRANEXAMIC ACID in NS IVPB 50 ML ONE ×2 (09:55→11:30)
[2022-03-09] MEDS ORDERED: ONDANSETRON PF 4 MG/2 ML VIAL. ONE (09:55)
[2022-03-09] MEDS ORDERED: ROCURONIUM 50 MG/5 ML VIAL. ONE (09:55)
[2022-03-09] MEDS ORDERED: ALBUMIN HUMAN 5% 500 ML IV ONE (10:30)
[2022-03-09] MEDS ORDERED: BUPIVACAINE MPF 0.75% 30 ML VIAL. ONE ×2 (10:41→10:48)
[2022-03-09] MEDS ORDERED: TV=62ml MORPHINE 5 MG, KETOROLAC 30 MG, ROPIV, EPI INT ART ONE (11:00)
[2022-03-09] MEDS ORDERED: PROPOFOL 50 ML IV ONE (11:09)
[2022-03-09] MEDS ORDERED: PHENYLEPHRINE in 0.9% NACL PF 1 MG/10 ML SYRINGE. IV ONE (12:06)
--- NOTE | 2022-03-09 12:08 | PDOC4 ---
OPERATIVE NOTE Date: Date: Mar 09, 2022 Pre-Op Diagnosis: Displaced subcapital fracture left hip Post-Op Diagnosis: Same Procedure Performed: Left hip hemiarthroplasty Surgeon: Jazzmine Anesthesia Type: Spinal Blood Loss: 100 cc Specimans Obtained: Femoral head left Findings: Size 7 femur size 53 bipolar shell standard neck length Complications: None Operative Note: See dictation BRIAN AREVALO Jr. DO Mar 09, 2022 12:08
[2022-03-09] MEDS ORDERED: HYDROcodone/APAP 7.5/325MG 1 TAB TABLET PO PRN (12:15)
[2022-03-09] MEDS ORDERED: IV DEXTROSE 5% 250 ML BAG. IV PRN (12:15)
[2022-03-09] MEDS ORDERED: POLYETHYLENE GLYCOL 3350 17 GM PACKET. PO PRN (12:15)
[2022-03-09] MEDS ORDERED: DEXTROSE 50% 25 GM / 50ML DISP.SYRIN. IV PRN (12:15)
[2022-03-09] MEDS ORDERED: MORPHINE SULFATE 4 MG/ML INJ. IVP PRN (12:15)
--- NOTE | 2022-03-09 12:40 | OP ---
DATE OF SURGERY: 03/09/2022 PREOPERATIVE DIAGNOSIS: Subcapital fracture, left hip. POSTOPERATIVE DIAGNOSIS: Subcapital fracture, left hip. PROCEDURE: Left hip hemiarthroplasty. SURGEON: Jeramy Dover Jr, DO. CDL B DRIVER: Damien Galindo. ANESTHESIA: Spinal. COMPLICATIONS: None. ESTIMATED BLOOD LOSS: 100 mL. DESCRIPTION OF PROCEDURE: The patient was taken to the operative suite, given a spinal anesthetic, placed in the lateral decubitus position. All bony prominences were well padded. Left hip was then prepped and draped in a sterile fashion. Incision was made through skin and subcutaneous tissues down to the iliotibial band. The superficial bleeding was coagulated at that point. There was a longitudinal split in the IT band, which was retracted anteriorly and posteriorly, which brought this down to the gluteus medius and minimus at this point. An inferior one-half of the gluteus medius was removed along with the gluteus minimus insertion site. This was retracted anteriorly, which brought to the capsule of the hip, which was opened up in an H fashion. After this was opened up, this was noted to be retracted and then the head was then removed and measured and noted to be a size 53. After the leg was placed in the side and the acetabulum was swept, there were no loose fragments within the acetabulum, which was irrigated and suctioned dry. Hematoma was also evacuated. Using the cutting guide, a cut was made in the proximal femur to remove the broken neck down to the area. One fingerbreadth above the lesser trochanter. This was noted to be a good flush cut. The telephone coin box collector was open up the femoral canal as well as the IM guide and then following this broaching began at size 0 and continued up to size 7. Size 7 was most appropriate size for this prosthesis with excellent fixation and this was trialled using standard neck length and standard femoral head with the 53 outer shell. This was noted to be stable with pistoning, stable with extremes in range of motion and no issues or problems or concerns. Therefore, this was forcibly dislocated. All trial components were removed at this point. After that, the femur was then thoroughly irrigated again. The femoral component was then placed. The femoral head, followed by the outer acetabular bipolar shell was then applied as well. That was impacted. This was then relocated, taken through full range of motion, noted to be stable in all planes. No signs of instability. No signs of any other issues or problems or concerns at this point. Therefore, this was irrigated with Betadine. This was completely irrigated out. The capsule was then reapproximated after the tranexamic acid was placed in the depths of the wound. After the capsule was identified. The gluteus medius and minimus were placed in their original position and orientation on the lateral aspect of the femur. Iliotibial band was then closed with a barbed suture. This was noted to be good and stable and close completely. The superficial tissue and skin was reapproximated. Sterile dressing was applied. The patient was then taken from the operative bed to the postoperative bed, taken to the PACU in stable condition. TANVIR DR: Ajit TID: [id number]
--- NOTE | 2022-03-09 13:40 | NUR ---
Pt. back from PACU. L hip Medardo drsg CDI.
--- NOTE | 2022-03-09 14:15 | PDOC2 ---
CONSULT Date of Consult Date of Consult DATE: 03/09/22 TIME: 14:08 Reason for Consult Reason for Consult: Left hip fracture subcapital Referring Physician Referring Physician: Dr. Peterson Identification/Chief Complaint Chief Complaint Left hip pain status post fall Source Source: Chart review, Patient History of Present Illness Reason for Visit: Patient is an 89-year-old male who sustained a fall yesterday while ambulating w as unable to ambulate after the fall was brought to the emergency department secondary to severe left hip pain thankfully no other injuries occurred no other problems no prior history of injury to the left hip Current Problem List Problem List Problems Medical Problems: (1) Fall from slip, trip, or stumble Status: Acute (2) Fracture of femoral neck, left, closed Status: Acute (3) Left leg cellulitis Status: Acute (4) Leukocytosis Status: Acute (5) Superficial thrombophlebitis of left leg Status: Acute (6) 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 Status: Acute Current Medications Current Medications Current Medications Ondansetron HCl (Zofran) 4 mg PRN Q8HRS PRN IVP NAUSEA/VOMITING 1ST CHOICE Last administered on 03/09/22at 02:48; Start 03/09/22 at 02:15; Stop 03/10/22 at 02:14 Morphine Sulfate (Morphine Sulfate) 2 mg PRN Q2HR PRN IVP SEVERE PAIN 7-10 Last administered on 03/09/22at 09:43; Start 03/09/22 at 02:15; Stop 03/10/22 at 02:14 Dextrose/Lactated Ringer's 1,000 ml @ 100 mls/hr 1X ONCE IV Last administered on 03/09/22at 04:13; Start 03/09/22 at 02:30; Stop 03/09/22 at 12:29; Status DC Fentanyl Citrate (Fentanyl 2ml Vial) 25 mcg PRN Q5MIN PRN IVP MILD PAIN 1-3; Start 03/09/22 at 09:15; Stop 03/10/22 at 09:14 Fentanyl Citrate (Fentanyl 2ml Vial) 50 mcg PRN Q5MIN PRN IVP MODERATE PAIN 4- 6; Start 03/09/22 at 09:15; Stop 03/10/22 at 09:14 Morphine Sulfate (Morphine Sulfate) 1 mg PRN Q10MIN PRN IVP SEVERE PAIN 7-10; Start 03/09/22 at 09:15; Stop 03/10/22 at 09:14 Ringer's Solution 1,000 ml @ 30 mls/hr Q24H IV Last administered on 03/09/22at 10:49; Start 03/09/22 at 09:15; Stop 03/09/22 at 21:14 Hydromorphone HCl (Dilaudid) 0.5 mg PRN Q10MIN PRN IVP SEVERE PAIN 7-10, 2nd CHOICE; Start 03/09/22 at 09:15; Stop 03/10/22 at 09:14 Prochlorperazine Edisylate (Compazine) 5 mg PACU PRN PRN IVP NAUSEA, MRX1; Start 03/09/22 at 09:15; Stop 03/10/22 at 09:14 Cefazolin Sodium/ Dextrose 50 ml @ As Directed STK-MED ONCE IV ; Start 03/09/22 at 09:47; Stop 03/09/22 at 09:47; Status DC Propofol (Diprivan) 200 mg STK-MED ONCE IV ; Start 03/09/22 at 09:54; Stop 03/09/22 at 09:54; Status DC Lidocaine HCl (Lidocaine Pf 2% Vial) 5 ml STK-MED ONCE .ROUTE ; Start 03/09/22 at 09:54; Stop 03/09/22 at 09:54; Status DC Fentanyl Citrate (Fentanyl 2ml Vial) 100 mcg STK-MED ONCE .ROUTE ; Start 03/09/22 at 09:54; Stop 03/09/22 at 09:55; Status DC Dexamethasone Sodium Phosphate (Decadron) 4 mg STK-MED ONCE .ROUTE ; Start 03/09/22 at 09:54; Stop 03/09/22 at 09:55; Status DC Ondansetron HCl (Zofran) 4 mg STK-MED ONCE .ROUTE ; Start 03/09/22 at 09:55; Stop 03/09/22 at 09:55; Status DC Rocuronium Weston (Zemuron) 50 mg STK-MED ONCE .ROUTE ; Start 03/09/22 at 09:55; Stop 03/09/22 at 09:55; Status DC Tranexamic Acid 50 ml @ As Directed STK-MED ONCE .ROUTE ; Start 03/09/22 at 09:55; Stop 03/09/22 at 09:56; Status DC Morphine Sulfate 5 mg/Ketorolac Tromethamine 30 mg/Ropivacaine 60 ml/Epinephrine HCl 0.5 mg/ Miscellaneous 63 ml @ 63 mls/hr 1X PERIOP ONCE INT ART Last administered on 03/09/22at 11:42; Start 03/09/22 at 11:00; Stop 03/09/22 at 11:59; Status DC Cefazolin Sodium/ Dextrose 50 ml @ 100 mls/hr 1X PREOP PRN IV PRIOR TO PROCEDURE Last administered on 03/09/22at 11:15; Start 03/09/22 at 11:00; Stop 03/10/22 at 10:59 Albumin Human 500 ml @ 125 mls/hr 1X ONCE IV Last administered on 03/09/22at 10:44; Start 03/09/22 at 10:30; Stop 03/09/22 at 14:29 Bupivacaine HCl (Sensorcaine Mpf 0.75%) 30 ml STK-MED ONCE .ROUTE ; Start 03/09/22 at 10:41; Stop 03/09/22 at 10:41; Status DC Bupivacaine HCl (Sensorcaine Mpf 0.75%) 30 ml STK-MED ONCE .ROUTE ; Start 03/09/22 at 10:48; Stop 03/09/22 at 10:48; Status DC Propofol 50 ml @ As Directed STK-MED ONCE IV ; Start 03/09/22 at 11:09; Stop 03/09/22 at 11:09; Status DC Tranexamic Acid 50 ml @ As Directed STK-MED ONCE .ROUTE Last administered on 03/09/22at 11:42; Start 03/09/22 at 11:30; Stop 03/09/22 at 11:31; Status DC Phenylephrine HCl (PHENYLEPHRINE in 0.9% NACL PF) 1 mg STK-MED ONCE IV ; Start 03/09/22 at 12:06; Stop 03/09/22 at 12:06; Status DC Oxycodone HCl (Roxicodone) 5 mg PRN Q3HRS PRN PO MODERATE PAIN 4-6; Start 03/09/22 at 12:15 Morphine Sulfate (Morphine Sulfate) 2 mg PRN Q1HR PRN IVP SEVERE PAIN 7-10; Start 03/09/22 at 12:15 Fentanyl Citrate (Fentanyl 2ml Vial) 25 mcg PRN Q1HR PRN IVP SEVERE PAIN 7-10; Start 03/09/22 at 12:15 Senna/Docusate Sodium (Senna Plus) 1 tab DAILY PO ; Start 03/10/22 at 09:00 Polyethylene Glycol (miraLAX PACKET) 17 gm PRN DAILY PRN PO CONSTIPATION; Start 03/09/22 at 12:15 Ondansetron HCl (Zofran) 4 mg PRN Q4HRS PRN IVP NAUSEA/VOMITING; Start 03/09/22 at 12:15 Aspirin (Dany Aspirin) 325 mg DAILYWBKFT PO ; Start 03/10/22 at 08:00 Magnesium Hydroxide (Milk Of Magnesia) 2,400 mg 1X PRN PRN PO CONSTIPATION; Start 03/10/22 at 06:00; Stop 03/11/22 at 05:59 Bisacodyl (Dulcolax Supp) 10 mg 1X PRN PRN [place] CONSTIPATION; Start 03/10/22 at 16:00; Stop 03/11/22 at 15:59 Acetaminophen/ Hydrocodone Bitart (Lortab 7.5/325) 1 tab PRN Q4HRS PRN PO PAIN; Start 03/09/22 at 12:15 Morphine Sulfate (Morphine Sulfate) 4 mg PRN Q2HR PRN IVP SEVERE PAIN 7-10; Start 03/09/22 at 12:15 Acetaminophen/ Hydrocodone Bitart (Lortab 7.5/325) 2 tab PRN Q4HRS PRN PO PAIN; Start 03/09/22 at 12:15 Dextrose (Dextrose 50%-Water Syringe) 12.5 gm PRN Q15MIN PRN IV SEE COMMENTS; Start 03/09/22 at 12:15 Dextrose (Iv Dextrose 5%) 250 ml PRN Q15MIN PRN IV SEE COMMENTS; Start 03/09/22 at 12:15 Cefazolin Sodium/ Dextrose 50 ml @ 100 mls/hr Q6H IV ; Start 03/09/22 at 17:00; Stop 03/10/22 at 05:29 Active Scripts Active Reported Centrum Adults Tablet (Multivitamin/Iron/Folic Acid) 1 Each Tablet 1 Each PO DAILY Klor-Con M20 (Potassium Chloride) 20 Meq Tab.er.prt 20 Meq PO DAILY Furosemide 40 Mg Tablet 40 PO DAILY Allergies Allergies: Coded Allergies: iodixanol (Verified Allergy, Severe, RASH, 03/09/22) levofloxacin (Verified Allergy, Intermediate, Rash, 03/09/22) ROS Review of System Unremarkable other than current musculoskeletal complaints Physical Exam Physical Exam Patient is in bed currently unable to ambulate shortened externally rotated left lower extremity significant pain with any type of range of motion to the hip region only no pain with palpation examination of the left knee or left ankle distal neuro vas status is fully intact with no atrophy of musculature no other abnormalities noted with examination Vitals VITALS Vital Signs Date Time Temp Pulse Resp B/P (MAP) Pulse Ox O2 Delivery O2 Flow Rate FiO2 03/09/22 13:12 14 101/46 95 Nasal Cannula 2.0 03/09/22 12:57 66 03/09/22 12:24 97.2 97.2 Labs Labs Laboratory Tests Test 03/09/22 01:46 03/09/22 08:10 White Blood Count 7.1 x10^3/uL (4.0-11.0) Red Blood Count 3.58 x10^6/uL (4.30-5.70) Hemoglobin 11.0 g/dL (13.0-17.5) Hematocrit 32.0 % (39.0-53.0) Mean Corpuscular Volume 89 fL (79-100) Mean Corpuscular Hemoglobin 31 pg (25-35) Mean Corpuscular Hemoglobin Concent 34 g/dL (31-37) Red Cell Distribution Width 14.0 % (11.5-14.5) Platelet Count 87 x10^3/uL (140-400) Neutrophils (%) (Auto) 38 % (31-73) Lymphocytes (%) (Auto) 54 % (24-48) Monocytes (%) (Auto) 7 % (0-9) Eosinophils (%) (Auto) 1 % (0-3) Basophils (%) (Auto) 1 % (0-3) Neutrophils # (Auto) 2.7 x10^3/uL (1.8-7.7) Lymphocytes # (Auto) 3.8 x10^3/uL (1.0-4.8) Monocytes # (Auto) 0.5 x10^3/uL (0.0-1.1) Eosinophils # (Auto) 0.0 x10^3/uL (0.0-0.7) Basophils # (Auto) 0.0 x10^3/uL (0.0-0.2) Segmented Neutrophils % 33 % (35-66) Band Neutrophils % 1 % (0-9) Lymphocytes % 62 % (24-48) Atypical Lymphocytes % (Manual) 1 % (0-0) Monocytes % 3 % (0-10) Smudge Cells Present Platelet Estimate Decreased (ADEQUATE) Sodium Level 137 mmol/L (136-145) Potassium Level 4.1 mmol/L (3.5-5.1) Chloride Level 102 mmol/L (98-107) Carbon Dioxide Level 28 mmol/L (21-32) Anion Gap 7 (6-14) Blood Urea Nitrogen 28 mg/dL (8-26) Creatinine 1.2 mg/dL (0.7-1.3) Estimated GFR (Cockcroft-Gault) 57.0 BUN/Creatinine Ratio 23 (6-20) Glucose Level 110 mg/dL (70-99) Calcium Level 9.3 mg/dL (8.5-10.1) Total Bilirubin 0.7 mg/dL (0.2-1.0) Aspartate Amino Transf (AST/SGOT) 53 U/L (15-37) Alanine Aminotransferase (ALT/SGPT) 48 U/L (16-63) Alkaline Phosphatase 124 U/L (46-116) Total Protein 6.0 g/dL (6.4-8.2) Albumin 3.5 g/dL (3.4-5.0) Albumin/Globulin Ratio 1.4 (1.0-1.7) SARS-CoV-2 Antigen (Rapid) Negative (NEGATIVE) Laboratory Tests Test 03/09/22 01:46 03/09/22 08:10 White Blood Count 7.1 x10^3/uL (4.0-11.0) Red Blood Count 3.58 x10^6/uL (4.30-5.70) Hemoglobin 11.0 g/dL (13.0-17.5) Hematocrit 32.0 % (39.0-53.0) Mean Corpuscular Volume 89 fL (79-100) Mean Corpuscular Hemoglobin 31 pg (25-35) Mean Corpuscular Hemoglobin Concent 34 g/dL (31-37) Red Cell Distribution Width 14.0 % (11.5-14.5) Platelet Count 87 x10^3/uL (140-400) Neutrophils (%) (Auto) 38 % (31-73) Lymphocytes (%) (Auto) 54 % (24-48) Monocytes (%) (Auto) 7 % (0-9) Eosinophils (%) (Auto) 1 % (0-3) Basophils (%) (Auto) 1 % (0-3) Neutrophils # (Auto) 2.7 x10^3/uL (1.8-7.7) Lymphocytes # (Auto) 3.8 x10^3/uL (1.0-4.8) Monocytes # (Auto) 0.5 x10^3/uL (0.0-1.1) Eosinophils # (Auto) 0.0 x10^3/uL (0.0-0.7) Basophils # (Auto) 0.0 x10^3/uL (0.0-0.2) Segmented Neutrophils % 33 % (35-66) Band Neutrophils % 1 % (0-9) Lymphocytes % 62 % (24-48) Atypical Lymphocytes % (Manual) 1 % (0-0) Monocytes % 3 % (0-10) Smudge Cells Present Platelet Estimate Decreased (ADEQUATE) Sodium Level 137 mmol/L (136-145) Potassium Level 4.1 mmol/L (3.5-5.1) Chloride Level 102 mmol/L (98-107) Carbon Dioxide Level 28 mmol/L (21-32) Anion Gap 7 (6-14) Blood Urea Nitrogen 28 mg/dL (8-26) Creatinine 1.2 mg/dL (0.7-1.3) Estimated GFR (Cockcroft-Gault) 57.0 BUN/Creatinine Ratio 23 (6-20) Glucose Level 110 mg/dL (70-99) Calcium Level 9.3 mg/dL (8.5-10.1) Total Bilirubin 0.7 mg/dL (0.2-1.0) Aspartate Amino Transf (AST/SGOT) 53 U/L (15-37) Alanine Aminotransferase (ALT/SGPT) 48 U/L (16-63) Alkaline Phosphatase 124 U/L (46-116) Total Protein 6.0 g/dL (6.4-8.2) Albumin 3.5 g/dL (3.4-5.0) Albumin/Globulin Ratio 1.4 (1.0-1.7) SARS-CoV-2 Antigen (Rapid) Negative (NEGATIVE) Images Images Displaced subcapital fracture left hip Assessment/Plan Assessment/Plan Patient has a displaced subcapital fracture of the left hip therefore I talk with him and his family about the risk complications as well as benefits and expectations of surgery postop protocol follow-up. We have also discussed at length the fact that this would be a hemiarthroplasty for a partial replacement of this fractured hip to take care of this current problem. No other issues problems or concerns at this point thankfully therefore we will proceed to the OR once he has been medically cleared, as well as seen by anesthesia preoperatively. BRIAN AREVALO Jr. DO Mar 09, 2022 14:14
--- NOTE | 2022-03-09 16:37 | NUR ---
Wound Care: Pt known to wound clinic for non-healing surgical wound to L ankle. Wound has been stable and unchanged for some time. Pt recently returned from PACU s/p Hip ORIF at time of attempted assessment. Will attempt again tomorrow.
[2022-03-10 03:10] VITALS: BP 115/60
[2022-03-10] MEDS ORDERED: MAGNESIUM HYDROXIDE 2,400 MG/30 ML ORAL.SUSP. PO PRN (06:00)
[2022-03-10 07:00] VITALS: BP 128/70
--- NOTE | 2022-03-10 08:12 | PDOC ---
Provider Note Date of Service: DATE: 03/10/22 TIME: 08:11 Provider Note stable after surg, vss, orders per ortho for now, rehab Justifications for Admission Other Justification JOSE MARIA REYES MD Mar 10, 2022 08:12
[2022-03-10] MEDS: ASPIRIN 325 MG TABLET PO SCH (08:37)
[2022-03-10] MEDS: SENNOSIDES/DOCUSATE 8.6/50MG TABLET. PO SCH (08:38)
[2022-03-10 09:40] LABS: HEMATOCRIT 26.8 % (39.0-53.0)
[2022-03-10 11:00] VITALS: BP 96/52
--- NOTE | 2022-03-10 11:30 | NUR ---
Wound Care Wound Type/Assessment: patient seen per wound care consult. see wound assessment. patient has a stasis ulcer to the left medial ankle, the wound was cleaned and redressed at this time. patient familiar to the wound care team- as patient is a current patient in the outpatient wound clinic and patients stated she had been using gentamicin to the wound daily. Treatment Recommendations/Plan: Recommendations of cleansing the wound, apply Vaseline gauze with a foam dressing, change every 2-3 days. Education provided: Educated patient and about the POC. Offloading surface/device: N/A Recommended Referrals/Tests: N/A Discharge Recommendations for dressings: wound care will continue to f/u for changes.
[2022-03-10 15:00] VITALS: BP 102/54
[2022-03-10] MEDS ORDERED: BISACODYL 10 MG SUPP.RECT. PR PRN (16:00)
[2022-03-10 19:15] VITALS: BP 103/49
--- NOTE | 2022-03-10 22:27 | PN ---
DATE: 03/10/2022 He is postoperative day #1 for a left hip hemiarthroplasty. His pain is minimal at this point. He is upright and eating today in bed. Without any issues, problems or concerns. He tells me he has not really ambulated yet, but they are planning on physical and occupational therapy this afternoon. He is weightbearing as tolerated and thankfully surgery went very well. His bone quality and muscle quality is good as I talked with him about that. No signs or symptoms of infection. No signs or symptoms of DVT. No excessive drainage from the wound site at this point. Distal neurovascular status is fully intact. We will continue with DVT prophylaxis, physical and occupational therapy and most likely transfer him to a rehab facility when he is medically stable. SONIA DR: Ajit TID: [id number]
[2022-03-10 22:42] VITALS: BP 120/65
[2022-03-11 02:56] VITALS: BP 133/58
[2022-03-11 07:00] VITALS: BP 144/62
--- NOTE | 2022-03-11 08:13 | PDOC ---
PROGRESS NOTES Date of Service DATE: 03/11/22 TIME: 08:12 Subjective Subjective POD #2 s/p L hip hemiarthroplasty Patient seen and examined this morning. Awake sitting up in bed utilizing urinal. Reports minimal pain to left hip. Tolerating p.o. intake postoperatively. Denies chest pain or shortness of air. No abdominal pain or discomfort. No acute events reported overnight. Objective Vital Signs Vital Signs Date Time Temp Pulse Resp B/P (MAP) Pulse Ox O2 Delivery O2 Flow Rate FiO2 03/11/22 07:00 97.9 95 18 144/62 (89) 92 Room Air 97.9 03/10/22 20:00 2.0 Physical Exam Orthopedic examination of the left lower extremity: Skin is warm and dry. Surgical incision noted over the anterior lateral aspect of the left hip. AYDEE dressing in place. No drainage. Compartments are soft and compressible. EHL/FHL intact. Plantarflexion/dorsiflexion intact. Cap refill brisk. Left lower extremity is warm and well-perfused. Sensation light touch intact in all dermatomes. Calf nontender. No pain with passive stretch. Negative Homans' sign. No evidence of thrombus. Labs Laboratory Tests Test 03/10/22 08:25 Hemoglobin 9.0 g/dL (13.0-17.5) Hematocrit 26.8 % (39.0-53.0) Mean Corpuscular Hemoglobin Concent 34 g/dL (31-37) Laboratory Tests Test 03/10/22 08:25 Hemoglobin 9.0 g/dL (13.0-17.5) Hematocrit 26.8 % (39.0-53.0) Mean Corpuscular Hemoglobin Concent 34 g/dL (31-37) Assessment Assessment 89-year-old male s/p GLF Left closed displaced transcervical femoral neck fracture * s/p left hip hemiarthroplasty 03/09- [facility] * WBAT LLE * Anterolateral hip precautions * PT/OT for mobilization, gait training and fall prevention * Maintain surgical dressing; reenforce as needed * ICE operative hip prn * Pain control * DVT ppx per primary (recommend Lovenox while hospitalized DVT prophylaxis with Lovenox for the form of oral anticoagulation for a total of 4 weeks upon discharge from the hospital from orthopedic standpoint) * Hgb 9.0 post-op 4/14; VSS today * Post-op abx complete * CM for discharge planning; patient living at home independently prior to hospitalization. Anticipate will likely require skilled placement versus rehab on discharge. Orthopedically stable for discharge. * Follow-up with Ortho clinic in 4 weeks following discharge from the hospital. Call to schedule appointment prior to discharge [phone]. Justicifation of Admission Dx: Justifications for Admission: Justification of Admission Dx: Yes JIM BETANCOURT Mar 11, 2022 08:13
[2022-03-11] MEDS: SENNOSIDES/DOCUSATE 8.6/50MG TABLET. PO SCH (08:35)
[2022-03-11] MEDS: ASPIRIN 325 MG TABLET PO SCH (08:35)
[2022-03-11] MEDS: HYDROcodone/APAP 7.5/325MG 1 TAB TABLET PO PRN (08:36)
--- NOTE | 2022-03-11 08:42 | PDOC ---
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
[2022-03-11 11:00] VITALS: BP 97/49
[2022-03-11 15:00] VITALS: BP 95/43
[2022-03-11 19:15] VITALS: BP 106/44
[2022-03-11 22:59] VITALS: BP 127/57
[2022-03-12 02:55] VITALS: BP 119/62
[2022-03-12 05:51] VITALS: BP 111/52
[2022-03-12] MEDS: ANTI-COAG MONITOR BY PHARMACY. MC PRN (08:22)
[2022-03-12] MEDS: APIXABAN 2.5 MG TABLET. PO SCH ×2 (08:44→20:04)
[2022-03-12] MEDS: SENNOSIDES/DOCUSATE 8.6/50MG TABLET. PO SCH (08:44)
[2022-03-12] MEDS: oxyCODONE IR 5 MG TABLET PO PRN (08:45)
--- NOTE | 2022-03-12 08:59 | PN ---
DATE: 03/12/2022 DAILY PROGRESS NOTE LOCATION: He is in room 400. SUBJECTIVE: This 89-year-old male is status post fall with displaced subcapital fracture of the left hip for which he has had a hip replacement. He is lying in bed, relatively comfortable, ready for rehab, to get back home and going. OBJECTIVE: VITAL SIGNS: Stable. He is afebrile. GENERAL: Pain is well controlled. CHEST: Clear to auscultation. HEART: Regular rate and rhythm. ABDOMEN: Benign. NEUROVASCULAR AND EXTREMITIES: Intact. ASSESSMENT: 1. Status post hip fracture with replacement. 2. Postoperative anemia with hemoglobin of 9. PLAN: Continue present care. Therapy, rehab will be needed at discharge. We will start Eliquis for DVT prophylaxis and get rid of the aspirin. IRINA/EDWARDO/AMBROCIO DR: IRINA/demetria TID: [id number]
[2022-03-12 11:00] VITALS: BP 112/60
[2022-03-12] MEDS ORDERED: DOCUSATE SODIUM 100 MG CAPSULE. PO PRN (13:30)
[2022-03-12 15:00] VITALS: BP 107/48
--- NOTE | 2022-03-12 15:14 | NUR ---
Post Void Bladder scan: 999+ Straight cath performed per hospital protocol, 1300ml retrieved from bladder. Patient distention is slightly improved.
--- NOTE | 2022-03-12 17:09 | PN ---
DATE: 03/12/2022 SUBJECTIVE: The patient is seen in a postoperative day #3 from a left femoral neck fracture and subsequently hemiarthroplasty, he is doing very well. No signs or symptoms of active drainage from the dressings. No signs or symptoms of infection, no signs or symptoms of DVT. He has done some transfers with physical therapy. He is still doing some strengthening while he is in bed as far as exercising due to his debilitated state at this point. We will continue with weightbearing as tolerated, activities as tolerated. Increase activities and await his transfer to a rehab facility when he is stable. Orthopedically, he is stable at this point, we will keep following and make sure he is doing well. JOHN/BRIGIDA/HARIS DR: Ajit TID: [id number]
[2022-03-12 19:00] VITALS: BP 110/49
[2022-03-12] MEDS ORDERED: BISACODYL 10 MG SUPP.RECT. PR PRN (19:15)
[2022-03-12] MEDS: TAMSULOSIN 0.4 MG CAP.ER.24H. PO SCH (20:04)
[2022-03-12 23:32] VITALS: BP 132/57
[2022-03-13 06:29] VITALS: BP 115/51
[2022-03-13 07:36] LABS: BASO % 0 % (0-3); EOS # 0.2 x10^3/uL (0.0-0.7); EOS % 2 % (0-3); HEMATOCRIT 22.7 % (39.0-53.0); HEMOGLOBIN 7.7 g/dL (13.0-17.5); LYMPH # 5.5 x10^3/uL (1.0-4.8); LYMPH % 61 % (24-48); MEAN CORPUSCULAR HEMOGLOBIN 30 pg (25-35); MEAN CORPUSCULAR HGB CONC 34 g/dL (31-37); MEAN CORPUSCULAR VOLUME 90 fL (79-100); MONO # 0.4 x10^3/uL (0.0-1.1); MONO % 5 % (0-9); NEUT # 2.8 x10^3/uL (1.8-7.7); NEUT % 32 % (31-73); PLATELET COUNT 172 x10^3/uL (140-400); RED BLOOD COUNT 2.52 x10^6/uL (4.30-5.70); WHITE BLOOD COUNT 8.9 x10^3/uL (4.0-11.0)
[2022-03-13] MEDS: DOCUSATE SODIUM 100 MG CAPSULE. PO SCH (08:19)
[2022-03-13] MEDS: SENNOSIDES/DOCUSATE 8.6/50MG TABLET. PO SCH (08:19)
[2022-03-13] MEDS: APIXABAN 2.5 MG TABLET. PO SCH ×2 (08:19→20:39)
--- NOTE | 2022-03-13 10:01 | PN ---
DATE: 03/13/2022 LOCATION: He is in room 400. SUBJECTIVE: This 89-year-old male status post fall with displaced subcapital fracture of the left hip for which he has had a hip replacement. I witnessed him getting out of bed to the bedside commode and he is very slow with the help of 2. He is remaining relatively comfortable. He did have some urinary retention yesterday evening with 1300 mL in his bladder. He was placed on Flomax and has urinated since. He had no sensation of being overly full at that point, suggesting that probably this is a chronic problem. OBJECTIVE: VITAL SIGNS: Stable. He is afebrile. GENERAL: He is awake and alert with pain well controlled. CHEST: Clear to auscultation. HEART: Regular rate and rhythm. ABDOMEN: Benign. EXTREMITIES: Neurovascular exam of the extremity is intact. LABORATORY DATA: Hemoglobin this morning 7.7 with it being 11 preoperatively. Creatinine was normal earlier in the hospitalization, suggesting he is emptying bladder well enough to avoid renal dysfunction. ASSESSMENT: 1. Status post hip fracture with replacement. 2. Postoperative anemia with hemoglobin of 7.7. 3. Anticoagulation following hip replacement. 4. Urinary retention. PLAN: Continue Flomax. Will need rehab at this point and he seems to be tolerating the hemoglobin well at this point in time. CARA DR: Lacie TID: [id number]
[2022-03-13 11:00] VITALS: BP 93/50
[2022-03-13] MEDS: ANTI-COAG MONITOR BY PHARMACY. MC PRN (11:24)
[2022-03-13 15:00] VITALS: BP 129/60
[2022-03-13 19:00] VITALS: BP 116/50
[2022-03-13] MEDS: TAMSULOSIN 0.4 MG CAP.ER.24H. PO SCH (20:39)
[2022-03-13 23:20] VITALS: BP 110/61
[2022-03-14 03:00] VITALS: BP 111/51
[2022-03-14 07:00] VITALS: BP 123/61
[2022-03-14] MEDS: APIXABAN 2.5 MG TABLET. PO SCH ×2 (08:24→20:42)
[2022-03-14] MEDS: DOCUSATE SODIUM 100 MG CAPSULE. PO SCH (08:24)
[2022-03-14] MEDS: SENNOSIDES/DOCUSATE 8.6/50MG TABLET. PO SCH (08:24)
--- NOTE | 2022-03-14 09:52 | PDOC ---
PROGRESS NOTES Date of Service DATE: 03/14/22 TIME: 09:51 Subjective Subjective POD #5 s/p L hip hemiarthroplasty Patient seen and examined this morning. Awake sitting upright in bed. at bedside. Very pleasant. Conversational. Reports pain to left hip controlled. Tolerating p.o. intake postoperatively. Patient does report having a bowel movement yesterday. Denies chest pain or shortness of breath. No abdominal pain or discomfort. Still struggling to void postoperatively. No IS at bedside. No acute orthopedic concerns. Objective Vital Signs Vital Signs Date Time Temp Pulse Resp B/P (MAP) Pulse Ox O2 Delivery O2 Flow Rate FiO2 03/14/22 07:39 Room Air 03/14/22 07:00 98.2 80 18 123/61 (81) 93 98.2 03/13/22 08:00 2.0 Physical Exam Orthopedic examination of the left lower extremity: Skin is warm and dry. Surgical incision noted over the anterior lateral aspect of the left hip. AYDEE dressing in place. Very small amount of dried discharge (blood) noted. Compartments are soft and compressible. EHL/FHL intact. Plantarflexion/dorsiflexion intact. Cap refill brisk. Left lower extremity is warm and well-perfused. Sensation light touch intact throughout all dermatomes. Calf nontender. No pain with passive stretch. Negative Homans' sign. No evidence of thrombus. Labs Laboratory Tests Test 03/13/22 06:40 White Blood Count 8.9 x10^3/uL (4.0-11.0) Red Blood Count 2.52 x10^6/uL (4.30-5.70) Hemoglobin 7.7 g/dL (13.0-17.5) Hematocrit 22.7 % (39.0-53.0) Mean Corpuscular Volume 90 fL (79-100) Mean Corpuscular Hemoglobin 30 pg (25-35) Mean Corpuscular Hemoglobin Concent 34 g/dL (31-37) Red Cell Distribution Width 14.0 % (11.5-14.5) Platelet Count 172 x10^3/uL (140-400) Neutrophils (%) (Auto) 32 % (31-73) Lymphocytes (%) (Auto) 61 % (24-48) Monocytes (%) (Auto) 5 % (0-9) Eosinophils (%) (Auto) 2 % (0-3) Basophils (%) (Auto) 0 % (0-3) Neutrophils # (Auto) 2.8 x10^3/uL (1.8-7.7) Lymphocytes # (Auto) 5.5 x10^3/uL (1.0-4.8) Monocytes # (Auto) 0.4 x10^3/uL (0.0-1.1) Eosinophils # (Auto) 0.2 x10^3/uL (0.0-0.7) Basophils # (Auto) 0.0 x10^3/uL (0.0-0.2) Assessment Assessment 89-year-old male s/p GLF Left closed displaced transcervical femoral neck fracture * s/p left hip hemiarthroplasty 03/09- [facility] * WBAT LLE * Anterolateral hip precautions x 6 weeks * PT/OT for mobilization, gait training and fall prevention * Maintain surgical dressing; reenforce as needed. AYDEE surgical dressing to be removed on POD #7. Keep incision covered at all times with gauze and metapore tape until first post-op follow up appointment. * ICE operative hip prn * Encourage use of IS while awake * Pain control * DVT ppx per primary (recommend Lovenox while hospitalized DVT prophylaxis with Lovenox for the form of oral anticoagulation for a total of 4 weeks upon discharge from the hospital from orthopedic standpoint) * Hgb 7.7 post-op 03/13; VSS * Post-op abx complete * CM for discharge planning; patient living at home independently prior to hospitalization. Anticipate will likely require skilled placement versus rehab on discharge. Orthopedically stable for discharge. * Follow-up with Ortho clinic in 4 weeks following discharge from the hospital. Call to schedule appointment prior to discharge [phone]. Justicifation of Admission Dx: Justifications for Admission: Justification of Admission Dx: Yes JIM BETANCOURT Mar 14, 2022 09:52
--- NOTE | 2022-03-14 10:01 | PDOC ---
Provider Note Date of Service: DATE: 03/14/22 TIME: 10:00 Provider Note hb down to 7.7, on eliquis for proph, add po iron, follow - rehab pending Justifications for Admission Other Justification JOSE MARIA REYES MD Mar 14, 2022 10:01
[2022-03-14 11:00] VITALS: BP 104/45
[2022-03-14 11:03] LABS: HEMATOCRIT 25.6 % (39.0-53.0); HEMOGLOBIN 8.5 g/dL (13.0-17.5); RED BLOOD COUNT 2.8 x10^6/uL (4.30-5.70); RED CELL DISTRIBUTION WIDTH 14.4 % (11.5-14.5); WHITE BLOOD COUNT 12.3 x10^3/uL (4.0-11.0)
[2022-03-14] MEDS: FERROUS SULFATE 325 MG TABLET. PO SCH (11:16)
--- NOTE | 2022-03-14 12:18 | PN ---
DATE: 03/14/2022 The patient is postoperative day #4 for left hemiarthroplasty, hip. He is doing very well at this point. No signs or symptoms of infection, no signs or symptoms of DVT. He is up and ambulating, but just with transfers only at this point. From an orthopedic standpoint since he is orthopedically stable, we can see him in the office in the next 2 weeks now to reevaluate the wound itself and observe his physical therapy progress. We would recommend most likely inpatient rehabilitation due to his current level. LEDA DR: Ajit TID: [id number]
[2022-03-14 15:00] VITALS: BP 105/53
[2022-03-14 19:15] VITALS: BP 118/63
[2022-03-14] MEDS: TAMSULOSIN 0.4 MG CAP.ER.24H. PO SCH (20:42)
[2022-03-14 23:09] VITALS: BP 130/67
[2022-03-15 03:00] VITALS: BP 105/56
--- NOTE | 2022-03-15 06:29 | NUR ---
PVR at 0500 989ml. attempted to insert pinzon cath due to resistance but unable to advance. wiil call Doctor for futher order.
[2022-03-15 07:00] VITALS: BP 113/66
--- NOTE | 2022-03-15 07:48 | PDOC ---
Provider Note Date of Service: DATE: 03/15/22 TIME: 07:47 Provider Note hb up 8.0, had 1750 ml in bladder but pinzon not in, on flomax 3 days , uro consult pending, rest same Justifications for Admission Other Justification JOSE MARIA REYES MD Mar 15, 2022 07:48
[2022-03-15] MEDS: FERROUS SULFATE 325 MG TABLET. PO SCH (08:33)
[2022-03-15] MEDS: SENNOSIDES/DOCUSATE 8.6/50MG TABLET. PO SCH (08:33)
[2022-03-15] MEDS: DOCUSATE SODIUM 100 MG CAPSULE. PO SCH (08:34)
[2022-03-15] MEDS: APIXABAN 2.5 MG TABLET. PO SCH ×2 (08:34→21:10)
[2022-03-15] MEDS: oxyCODONE IR 5 MG TABLET PO PRN (08:34)
--- NOTE | 2022-03-15 10:12 | PDOC2 ---
UROLOGY CONSULT DOS: DATE: 03/15/22 TIME: 10:04 Reason for Consult: Urinary retention 89M admitted to the hospital following a left hemiarthroplasty of the hip on 03/09. Urology was consulted as patient has had trouble voiding. He has required straight catheterization x3. Nursing was having trouble placing Lucio catheter but was able to place straight catheter. Patient reports that at baseline he has a weak urine stream that starts and stops. He has some urinary frequency during the daytime but no bothersome nocturia. He denies any history of interventions. He has never required Lucio catheter in the past. Denies a history of recurrent UTIs. Patient is having some mild suprapubic discomfort and distention as he has not been able to void for several hours. He is having normal bowel movements. He has been receiving Flomax inpatient with little improvement to his urination. Denies any flank pain, gross hematuria or fevers. He has been ambulatory following his procedure. ROS Constitutional: Denies fevers, chills, weakness Cardiovascular: Denies chest pain, palpitations Respiratory: Denies shortness of breath, wheezing, dyspnea on exertion GI: Denies abdominal pain, nausea, vomiting : Denies dysuria, frequency, urgency, hematuria, +urinary retention, -flank pain Skin: Denies rash, bruising Musculoskeletal: Denies extremity pain, extremity edema, reports mild hip pain Psychiatric: Denies stress, anxiety Past Surgical History: No pertinent history Current Medications Current Medications Ondansetron HCl (Zofran) 4 mg PRN Q8HRS PRN IVP NAUSEA/VOMITING 1ST CHOICE Last administered on 03/09/22at 02:48; Start 03/09/22 at 02:15; Stop 03/09/22 at 15:31; Status DC Morphine Sulfate (Morphine Sulfate) 2 mg PRN Q2HR PRN IVP SEVERE PAIN 7-10 Last administered on 03/09/22at 09:43; Start 03/09/22 at 02:15; Stop 03/09/22 at 15:32; Status DC Dextrose/Lactated Ringer's 1,000 ml @ 100 mls/hr 1X ONCE IV Last administered on 03/09/22at 04:13; Start 03/09/22 at 02:30; Stop 03/09/22 at 12:29; Status DC Fentanyl Citrate (Fentanyl 2ml Vial) 25 mcg PRN Q5MIN PRN IVP MILD PAIN 1-3; Start 03/09/22 at 09:15; Stop 03/10/22 at 09:14; Status DC Fentanyl Citrate (Fentanyl 2ml Vial) 50 mcg PRN Q5MIN PRN IVP MODERATE PAIN 4- 6; Start 03/09/22 at 09:15; Stop 03/10/22 at 09:14; Status DC Morphine Sulfate (Morphine Sulfate) 1 mg PRN Q10MIN PRN IVP SEVERE PAIN 7-10; Start 03/09/22 at 09:15; Stop 03/10/22 at 09:14; Status DC Ringer's Solution 1,000 ml @ 30 mls/hr Q24H IV Last administered on 03/09/22at 10:49; Start 03/09/22 at 09:15; Stop 03/09/22 at 21:14; Status DC Hydromorphone HCl (Dilaudid) 0.5 mg PRN Q10MIN PRN IVP SEVERE PAIN 7-10, 2nd CHOICE; Start 03/09/22 at 09:15; Stop 03/10/22 at 09:14; Status DC Prochlorperazine Edisylate (Compazine) 5 mg PACU PRN PRN IVP NAUSEA, MRX1; Start 03/09/22 at 09:15; Stop 03/10/22 at 09:14; Status DC Cefazolin Sodium/ Dextrose 50 ml @ As Directed STK-MED ONCE IV ; Start 03/09/22 at 09:47; Stop 03/09/22 at 09:47; Status DC Propofol (Diprivan) 200 mg STK-MED ONCE IV ; Start 03/09/22 at 09:54; Stop 03/09/22 at 09:54; Status DC Lidocaine HCl (Lidocaine Pf 2% Vial) 5 ml STK-MED ONCE .ROUTE ; Start 03/09/22 at 09:54; Stop 03/09/22 at 09:54; Status DC Fentanyl Citrate (Fentanyl 2ml Vial) 100 mcg STK-MED ONCE .ROUTE ; Start 02/25 02/15 at 09:54; Stop 03/09/22 at 09:55; Status DC Dexamethasone Sodium Phosphate (Decadron) 4 mg STK-MED ONCE .ROUTE ; Start at 09:54; Stop 03/09/22 at 09:55; Status DC Ondansetron HCl (Zofran) 4 mg STK-MED ONCE .ROUTE ; Start 03/09/22 at 09:55; Stop 03/09/22 at 09:55; Status DC Rocuronium Baxter (Zemuron) 50 mg STK-MED ONCE .ROUTE ; Start 03/09/22 at 09:55; Stop 03/09/22 at 09:55; Status DC Tranexamic Acid 50 ml @ As Directed STK-MED ONCE .ROUTE ; Start 03/09/22 at 09:55; Stop 03/09/22 at 09:56; Status DC Morphine Sulfate 5 mg/Ketorolac Tromethamine 30 mg/Ropivacaine 60 ml/Epinephrine HCl 0.5 mg/ Miscellaneous 63 ml @ 63 mls/hr 1X PERIOP ONCE INT ART Last administered on 03/09/22at 11:42; Start 03/09/22 at 11:00; Stop 03/09/22 at 11:59; Status DC Cefazolin Sodium/ Dextrose 50 ml @ 100 mls/hr 1X PREOP PRN IV PRIOR TO PROCEDURE Last administered on 03/09/22at 11:15; Start 03/09/22 at 11:00; Stop 03/09/22 at 15:32; Status DC Albumin Human 500 ml @ 125 mls/hr 1X ONCE IV Last administered on 03/09/22at 10:44; Start 03/09/22 at 10:30; Stop 03/09/22 at 14:29; Status DC Bupivacaine HCl (Sensorcaine Mpf 0.75%) 30 ml STK-MED ONCE .ROUTE ; Start 03/09/22 at 10:41; Stop 03/09/22 at 10:41; Status DC Bupivacaine HCl (Sensorcaine Mpf 0.75%) 30 ml STK-MED ONCE .ROUTE ; Start 03/09/22 at 10:48; Stop 03/09/22 at 10:48; Status DC Propofol 50 ml @ As Directed STK-MED ONCE IV ; Start 03/09/22 at 11:09; Stop 03/09/22 at 11:09; Status DC Tranexamic Acid 50 ml @ As Directed STK-MED ONCE .ROUTE Last administered on 03/09/22at 11:42; Start 03/09/22 at 11:30; Stop 03/09/22 at 11:31; Status DC Phenylephrine HCl (PHENYLEPHRINE in 0.9% NACL PF) 1 mg STK-MED ONCE IV ; Start 03/09/22 at 12:06; Stop 03/09/22 at 12:06; Status DC Oxycodone HCl (Roxicodone) 5 mg PRN Q3HRS PRN PO MODERATE PAIN 4-6 Last administered on 03/15/22at 08:34; Start 03/09/22 at 12:15 Morphine Sulfate (Morphine Sulfate) 2 mg PRN Q1HR PRN IVP SEVERE PAIN 7-10; Start 03/09/22 at 12:15 Fentanyl Citrate (Fentanyl 2ml Vial) 25 mcg PRN Q1HR PRN IVP See Comments Last administered on 03/09/22at 21:32; Start 03/09/22 at 12:15 Senna/Docusate Sodium (Senna Plus) 1 tab DAILY PO Last administered on 03/15/22at 08:33; Start 03/10/22 at 09:00 Polyethylene Glycol (miraLAX PACKET) 17 gm PRN DAILY PRN PO CONSTIPATION Last administered on 03/12/22at 08:44; Start 03/09/22 at 12:15 Ondansetron HCl (Zofran) 4 mg PRN Q4HRS PRN IVP NAUSEA/VOMITING; Start 03/09/22 at 12:15 Aspirin (Dany Aspirin) 325 mg DAILYWBKFT PO Last administered on 03/11/22at 08:35; Start 03/10/22 at 08:00; Stop 03/12/22 at 08:18; Status DC Magnesium Hydroxide (Milk Of Magnesia) 2,400 mg 1X PRN PRN PO CONSTIPATION; Start 03/10/22 at 06:00; Stop 03/11/22 at 05:59; Status DC Bisacodyl (Dulcolax Supp) 10 mg 1X PRN PRN [place] CONSTIPATION; Start 03/10/22 at 16:00; Stop 03/11/22 at 15:59; Status DC Acetaminophen/ Hydrocodone Bitart (Lortab 7.5/325) 1 tab PRN Q4HRS PRN PO MILD PAIN (1st Choice) Last administered on 03/11/22at 08:36; Start 03/09/22 at 12:15 Morphine Sulfate (Morphine Sulfate) 4 mg PRN Q2HR PRN IVP SEVERE PAIN 7-10; Start 03/09/22 at 12:15 Acetaminophen/ Hydrocodone Bitart (Lortab 7.5/325) 2 tab PRN Q4HRS PRN PO MILD PAIN (2nd Choice); Start 03/09/22 at 12:15 Dextrose (Dextrose 50%-Water Syringe) 12.5 gm PRN Q15MIN PRN IV SEE COMMENTS; Start 03/09/22 at 12:15 Dextrose (Iv Dextrose 5%) 250 ml PRN Q15MIN PRN IV SEE COMMENTS; Start 03/09/22 at 12:15 Cefazolin Sodium/ Dextrose 50 ml @ 100 mls/hr Q6H IV Last administered on 03/10/22at 04:40; Start 03/09/22 at 17:00; Stop 03/10/22 at 05:29; Status DC Apixaban (Eliquis) 2.5 mg BID PO Last administered on 03/15/22at 08:34; Start 03/12/22 at 09:00 Info (Anti-Coagulation Monitoring By Pharmacy) 1 each PRN DAILY PRN MC PER PROTOCOL Last administered on 03/13/22at 11:24; Start 03/12/22 at 08:30 Docusate Sodium (Colace) 100 mg PRN DAILY PRN PO HARD STOOLS Last administered on 03/12/22at 20:03; Start 03/12/22 at 13:30 Docusate Sodium (Colace) 100 mg DAILY PO Last administered on 03/15/22at 08:34; Start 03/13/22 at 09:00 Bisacodyl (Dulcolax Supp) 10 mg PRN DAILY PRN [place] CONSTIPATION; Start 03/12/22 at 19:15 Tamsulosin HCl (Flomax) 0.4 mg QHS PO Last administered on 03/14/22at 20:42; Start 03/12/22 at 20:00 Ferrous Sulfate (Feosol) 325 mg DAILYWBKFT PO Last administered on 03/15/22at 08:33; Start 03/14/22 at 12:00 Active Scripts Active Reported Centrum Adults Tablet (Multivitamin/Iron/Folic Acid) 1 Each Tablet 1 Each PO DAILY Klor-Con M20 (Potassium Chloride) 20 Meq Tab.er.prt 20 Meq PO DAILY Furosemide 40 Mg Tablet 40 PO DAILY Allergies: Coded Allergies: iodixanol (Verified Allergy, Severe, RASH, 03/09/22) levofloxacin (Verified Allergy, Intermediate, Rash, 03/09/22) Physical Examination GENERAL: awake, alert, oriented SKIN: warm, dry RESPIRATORY: Aerating well, symmetrical expansion GI: Soft, nontender, no guarding, no rebound, mild suprapubic distention, palpable bladder : Normal anatomy, circumcised penis, no lesions, no CVA tenderness MUSCULOSKELETAL: Moves all extremities, no edema NEURO: No gross abnormalities PSYCHIATRIC: Normal mood, normal affect, pleasant VITALS Vital Signs Date Time Temp Pulse Resp B/P (MAP) Pulse Ox O2 Delivery O2 Flow Rate FiO2 03/15/22 09:00 18 Room Air 03/15/22 07:00 98.2 68 113/66 (82) 94 98.2 Labs Laboratory Tests Test 03/14/22 00:45 03/14/22 10:30 Coronavirus (COVID-19)(PCR) Not detected (NOT DETECTD) White Blood Count 12.3 x10^3/uL (4.0-11.0) Red Blood Count 2.80 x10^6/uL (4.30-5.70) Hemoglobin 8.5 g/dL (13.0-17.5) Hematocrit 25.6 % (39.0-53.0) Mean Corpuscular Volume 91 fL (79-100) Mean Corpuscular Hemoglobin 30 pg (25-35) Mean Corpuscular Hemoglobin Concent 33 g/dL (31-37) Red Cell Distribution Width 14.4 % (11.5-14.5) Platelet Count 207 x10^3/uL (140-400) Laboratory Tests Test 03/14/22 10:30 White Blood Count 12.3 x10^3/uL (4.0-11.0) Red Blood Count 2.80 x10^6/uL (4.30-5.70) Hemoglobin 8.5 g/dL (13.0-17.5) Hematocrit 25.6 % (39.0-53.0) Mean Corpuscular Volume 91 fL (79-100) Mean Corpuscular Hemoglobin 30 pg (25-35) Mean Corpuscular Hemoglobin Concent 33 g/dL (31-37) Red Cell Distribution Width 14.4 % (11.5-14.5) Platelet Count 207 x10^3/uL (140-400) Assessment/Plan -- Urinary retention This is likely postoperative as he recent had a left hemiarthroplasty of the hip on 03/09. Current PVR over 999 cc. He has not been able to void and nursing having difficulty placing Lucio catheter -- but have been able to straight catheterize x3. He does have baseline LUTS. We will continue on daily Flomax 0.4 mg. Would avoid narcotics as best possible as this can lead to urinary retention. Due to persistent retention, Lucio catheter will be placed for 3 days. Patient prepped in a sterile fashion. 18 Korean Lucio catheter easily inserted into bladder. 1600 cc of urine in return. 10 cc balloon was inflated. Lucio attached to bedside bag and StatLock. Patient tolerated procedure very well. Patient planning to go to rehab facility. Rehab should be able to do a voiding trial in 3 days. If he fails the voiding trial, rehab to replace the Lucio catheter for 2 to 3 weeks. At this time he can follow-up with our office for another voiding trial. I did discuss with the family that an outpatient cystoscopy in the upcoming month would be of benefit as he may be a candidate for noninvasive procedure on his prostate to help with his baseline LUTS such as rezume or UroLift. Will discuss on outpt basis. Please call with urology concerns. Pt to f/u 1 month with [facility] [place] at [phone] CAYLA RUFFIN Mar 15, 2022 10:12
[2022-03-15 11:00] VITALS: BP 104/44
[2022-03-15 15:00] VITALS: BP 112/59
--- NOTE | 2022-03-15 15:47 | NUR ---
received phone call from Dr. Peterson. he had received a text message from case management that he could call and give a verbal discharge to dismiss to [facility]. he can go on same meds except for eliquis and pain medication. the surgeon can determine those medications. spoke with shutdown planner; I cannot take a verbal order to go to [facility] and they will not accept a med rec. Message left with Dr. Peterson office nurse and a call back number.
[2022-03-15 19:15] VITALS: BP 111/45
[2022-03-15] MEDS: HYDROcodone/APAP 7.5/325MG 1 TAB TABLET PO PRN (21:10)
[2022-03-15] MEDS: TAMSULOSIN 0.4 MG CAP.ER.24H. PO SCH (21:10)
[2022-03-15 23:27] VITALS: BP 118/54
[2022-03-16 03:12] VITALS: BP 120/59
[2022-03-16 07:00] VITALS: BP 123/55
--- NOTE | 2022-03-16 08:00 | PDOC ---
Provider Note Date of Service: DATE: 03/16/22 TIME: 07:59 Provider Note [id number] Justifications for Admission Other Justification JOSE MARIA REYES MD Mar 16, 2022 08:00
--- NOTE | 2022-03-16 08:03 | SNU/HH DC ---
DISCHARGE ORDERS DISCHARGE INFORMATION: FINAL DIAGNOSIS Problems Medical Problems: (1) Fall from slip, trip, or stumble Status: Acute (2) Fracture of femoral neck, left, closed Status: Acute (3) Left leg cellulitis Status: Acute (4) Leukocytosis Status: Acute (5) Superficial thrombophlebitis of left leg Status: Acute (6) 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 Status: Acute CONDITION ON DISCHARGE: Stable CODE STATUS: Code Status: Full ALF: SNF STAY <30 DAYS: Yes POST DISCHARGE ORDERS: ACTIVITY ORDERS: Activity as tolerated, Bedrest today WEIGHT BEARING STATUS: As tolerated DIET AFTER DISCHARGE: Regular WOUND/INCISION CARE: Keep wound/cast CDI CHECKS AFTER DISCHARGE: CHECKS AFTER DISCHARGE: Check blood press - daily, Check your Temp as needed TREATMENT/EQUIPMENT ORDERS: ADAPTIVE EQUIPMENT NEEDED: None DISCHARGE MEDICATIONS: Home Meds Reported Medications Multivitamin/Iron/Folic Acid (Centrum Adults Tablet) 1 Each Tablet, 1 EACH PO DAILY for supplement, TAB 10/04/19 Potassium Chloride (KLOR-CON M20) 20 Meq Tab.er.prt, 20 MEQ PO DAILY, #30 08/19/16 Furosemide (FUROSEMIDE) 40 Mg Tablet, 40 PO DAILY, #60 08/19/16 JOSE MARIA REYES MD Mar 16, 2022 08:03
[2022-03-16] MEDS: HYDROcodone/APAP 7.5/325MG 1 TAB TABLET PO PRN (08:33)
[2022-03-16] MEDS: APIXABAN 2.5 MG TABLET. PO SCH (08:33)
[2022-03-16] MEDS: SENNOSIDES/DOCUSATE 8.6/50MG TABLET. PO SCH (08:33)
[2022-03-16] MEDS: FERROUS SULFATE 325 MG TABLET. PO SCH (08:33)
[2022-03-16] MEDS: DOCUSATE SODIUM 100 MG CAPSULE. PO SCH (08:33)
[2022-03-16] MEDS ORDERED: APIX2.5T PO (08:41)
[2022-03-16] MEDS ORDERED: HYDR-2765 PO ×2 (08:41→14:15)
[2022-03-16 11:00] VITALS: BP 100/42
--- NOTE | 2022-03-16 13:09 | DS ---
DATE OF DISCHARGE: 03/16/2022 HOSPITAL SUMMARY: An 89-year-old white male came in after a fall with left femoral neck fracture. Chemistry profile and CBC were normal on admission. Hemoglobin dropped to a dieter of 7.7 and was 8.5 at discharge. COVID serology was negative. Chest x-ray films were unremarkable except for the fractured femoral neck. He had surgery by Dr. 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 He has been placed on Flomax. Will have a voiding trial in 3-4 days and then ultimately have catheter replaced. If unable to void, may need surgical intervention later. He is doing well at this time, unable to be transferred to alf. FINAL DIAGNOSES: 1. Fracture of left femoral neck. 2. Postoperative urinary retention, likely secondary to benign prostatic hypertrophy. OPERATIONS AND PROCEDURES: Operative reduction of the left hip fracture. COMPLICATIONS: None. CONSULTATION: Dr. Dover and Dr. Marie. DISPOSITION: Meds remain the same with the addition of Eliquis per Dr. Dover and Flomax for his retention. Iron pills daily for anemia. Rest of meds the same. We will follow up as needed while he is in rehab. AGNELITA/LINA/ALFRED DR: ANGELITA/demetria TID: [id number]
[2022-03-16 15:00] VITALS: BP 107/44
--- NOTE | 2022-03-16 18:18 | NUR ---
while giving report to [facility] for transfer of Jose. transportation arrived and was unable to change AYDEE dressing as they requested. and son at bedside. They were in informed that he would have f/u with Dr. Dover and Cynthia. Addendum: 03/16/22 at 1828 by NIKO LOU RN departed at 1510 with personal belongings
== END 2022-03-16 15:10 | DRG 522 ==
LOC: ER 00:24 → 4 NORTH 02:07
PROVIDERS: ADMIT Family Medicine; ATTEND Family Medicine
PROC: 0SRS0JZ Replacement of Left Hip Joint, Femoral Surface with Synthetic Substitute, Open Approach (ICD-10-PCS; principal; 2022-03-09 11:00)
DX: S72.012A Unspecified intracapsular fracture of left femur, initial encounter for closed fracture (principal); C91.10 Chronic lymphocytic leukemia of B-cell type not having achieved remission; L03.116 Cellulitis of left lower limb; S72.002A Fracture of unspecified part of neck of left femur, initial encounter for closed fracture; W01.0XXA Fall on same level from slipping, tripping and stumbling without subsequent striking against object, initial encounter; I80.02 Phlebitis and thrombophlebitis of superficial vessels of left lower extremity; I87.2 Venous insufficiency (chronic) (peripheral); N40.1 Benign prostatic hyperplasia with lower urinary tract symptoms; R33.8 Other retention of urine; S72.032A Displaced midcervical fracture of left femur, initial encounter for closed fracture; D64.89 Other specified anemias
CPT/HCPCS: 36415; 71045; 73502; 73552; 73560; 80053; 85007; 85014; 85018; 85025; 85027; 86850; 86900; 86901; 87426; 88305; 88311; 96374; A4213; A4657; A4930; A6223; A6258; A6402; A6550; C1776; J0171; J0690; J1100; J1885; J2270; J2370; J2405; J2704; J2795; J3010; J3490; J7120; J7121; P9045; U0003; 97110-GP; 97116-GP; 97530-GO; 97530-GP; 97535-GO; 99285-25; G0378